=== PATIENT | female | born 1955 | race Caucasian/White ===

== ENCOUNTER 2020-08-19 09:45 | Outpatient (REF) | payer OTHER, SELFPAY ==
--- NOTE | 2020-08-19 10:26 | XR_ITS ---
EXAMINATION: XR HIP, LEFT XR PELVIS CLINICAL INFORMATION: Pain in left hip COMPARISON: CT imaging of the left hip from 09/27/2019. Radiographs of the hip from 07/02/2019, and pelvis from 08/08/2019 TECHNIQUE: Pelvis, AP view Left hip, 2 views FINDINGS: Pelvis: No acute abnormalities. The osseous pelvic ring remains intact. Alignment is normal at the pubic symphysis and sacroiliac joints. Chronic, mild osteoarthritis of the right hip and severe osteoarthritis of the left hip. Left hip: Chronic, severe loss of joint space, exuberant subchondral cystic change, subchondral sclerosis and osteophytosis. No evidence of femoral fracture. No new findings at the left hip compared to 09/27/2019. XR/XR hip LT min 2V IMPRESSION: Chronic, severe osteoarthritis of the left hip and mild osteoarthritis of the right hip.
--- NOTE | 2020-08-19 10:26 | XR_ITS ---
EXAMINATION: XR HIP, LEFT XR PELVIS CLINICAL INFORMATION: Pain in left hip COMPARISON: CT imaging of the left hip from 09/27/2019. Radiographs of the hip from 07/02/2019, and pelvis from 08/08/2019 TECHNIQUE: Pelvis, AP view Left hip, 2 views FINDINGS: Pelvis: No acute abnormalities. The osseous pelvic ring remains intact. Alignment is normal at the pubic symphysis and sacroiliac joints. Chronic, mild osteoarthritis of the right hip and severe osteoarthritis of the left hip. Left hip: Chronic, severe loss of joint space, exuberant subchondral cystic change, subchondral sclerosis and osteophytosis. No evidence of femoral fracture. No new findings at the left hip compared to 09/27/2019. XR/XR pelvis 1-2V IMPRESSION: Chronic, severe osteoarthritis of the left hip and mild osteoarthritis of the right hip.
== END 2020-08-19 09:46 | disposition home or self-care (01) ==
LOC: HO.HOSX 09:45
PROVIDERS: Visit Provider Physician Assistant
DX: M16.12 Unilateral primary osteoarthritis, left hip (principal)
CPT/HCPCS: 72170; 73502

== ENCOUNTER → 2020-09-15 11:57 | Outpatient (BNVA) | payer OTHER, SELFPAY | PROVIDERS: PCP Internal Medicine; Visit Provider Orthopaedic Surgery ==

== ENCOUNTER 2020-09-29 | Outpatient (REF) | payer OTHER, SELFPAY ==
[2020-10-03 07:38] LABS: FIT Int Ctl YES; FIT1 POSITIVE (NEGATIVE); FIT2 NEGATIVE (NEGATIVE)
== END 2020-09-29 00:01 | disposition home or self-care (01) ==
LOC: HO.LNP
PROVIDERS: Visit Provider Internal Medicine
DX: Z12.11 Encounter for screening for malignant neoplasm of colon (principal)
CPT/HCPCS: 82274

== ENCOUNTER 2020-10-02 10:36 | Outpatient (REF) | payer OTHER, SELFPAY ==
[2020-10-02 14:58] LABS: Basophils Absolute Auto 0.1 X10*3/uL (0.0-0.2); Basophils Percent Auto 0.6 % (0-2); MANUAL DIFF FLAG SCAN; SCAN SMEAR FLAG 1
[2020-10-02 15:00] LABS: Eosinophils Absolute Auto 0.2 X10*3/uL (0.0-0.4); Eosinophils Percent Auto 1.9 % (0-4); Hematocrit 43.1 % (37-47); Imm Gran Abs Auto 0.06 X10*3/uL (0.00-0.03); Imm Gran Pct Auto 0.7 % (0.0-0.4); Lymphocytes Absolute Auto 1.9 X10*3/uL (1.2-4.9); Mean Corpuscular HGB Conc 32.5 g/dl (31.0-35.0); Mean Corpuscular Volume 95.4 fL (80-98); Monocytes Absolute Auto 0.8 X10*3/uL (0.1-1.2); Monocytes Percent Auto 9.5 % (2-11); Neutrophils Absolute Auto 5.2 X10*3/uL (2.0-8.3); Neutrophils Percent Auto 64.3 % (45-73); Platelet Count 210 X10*3/uL (160-400); Red Blood Count 4.52 X10*6/uL (4.20-5.50); Red Cell Distribution Width 13.6 % (11.0-16.0); White Blood Count 8.1 X10*3/uL (4.8-10.8)
[2020-10-02 15:05] LABS: PLT ABN DIST 1
[2020-10-02 15:27] LABS: Alanine Aminotransferase 27 U/L (0-31); Albumin Level 4.6 g/dL (3.5-5.0); Alkaline Phosphatase 126 U/L (39-117); Anion Gap 14 (12-20); Aspartate Amino Transferase 33 U/L (5-31); Bilirubin Total 1.2 mg/dL (0.0-1.0); Blood Urea Nitrogen 32 mg/dL (9-16); Calcium 9.1 mg/dL (8.4-10.2); Carbon Dioxide 28 mmol/L (22-29); Chloride 104 mmol/L (96-108); Cholesterol 138 mg/dL; Estimated Glomerular Filt Rate > 60; Glucose Fasting 102 mg/dL (60-99); HDL Cholesterol 47 mg/dL; LDL Cholesterol Calculated 65 mg/dl; Potassium 4.3 mmol/L (3.3-5.1); Sodium 142 mmol/L (135-145); Triglycerides 130 mg/dL
[2020-10-02 15:50] LABS: Free T4 (Free Thyroxine) 1.31 ng/dL (0.71-1.85); Thyroid Stimulating Hormone 1.75 uIU/mL (0.32-4.0); Vitamin D 25-OH Total 3.4 ng/mL (>30)
== END 2020-10-02 10:37 | disposition home or self-care (01) ==
LOC: HO.HMGCLDS 10:36
PROVIDERS: PCP Internal Medicine; Visit Provider Internal Medicine
DX: Z01.812 Encounter for preprocedural laboratory examination (principal); E66.01 Morbid (severe) obesity due to excess calories; E78.5 Hyperlipidemia, unspecified; E03.9 Hypothyroidism, unspecified; Z78.0 Asymptomatic menopausal state
CPT/HCPCS: 36415; 80048; 80053; 80061; 82306; 84439; 84443; 85025

== ENCOUNTER 2020-10-02 14:54 | Outpatient (REF) | payer OTHER, SELFPAY | END 2020-10-02 14:55 | disposition home or self-care (01) | LOC: HO.LNP 14:54 | PROVIDERS: Visit Provider Internal Medicine | DX: Z13.89 Encounter for screening for other disorder (principal) ==

== ENCOUNTER → 2020-10-06 10:51 | Outpatient (REF) | payer OTHER, SELFPAY ==
--- NOTE | 2020-10-06 11:02 | ECG_ITS ---
Test Reason : PREOP Blood Pressure : / mmHG Vent. Rate : 068 BPM Atrial Rate : 068 BPM P-R Int : 166 ms QRS Dur : 098 ms QT Int : 420 ms P-R-T Axes : 062 024 047 degrees QTc Int : 446 ms Normal sinus rhythm Incomplete right bundle branch block Borderline ECG No previous ECGs available Referred By: Daryl Baum Electronically Signed By:JULES JACKSON MD
== END ==
LOC: HO.CARD 10:51
PROVIDERS: PCP Internal Medicine; Visit Provider Physician Assistant
DX: Z01.810 Encounter for preprocedural cardiovascular examination (principal)
CPT/HCPCS: 93005

== ENCOUNTER → 2020-10-08 13:50 | Outpatient (BNVA) | payer OTHER, SELFPAY | PROVIDERS: PCP Internal Medicine; Visit Provider Physician Assistant ==

== ENCOUNTER 2020-10-13 06:17 | Inpatient (IN) | payer OTHER, SELFPAY ==
[2020-10-09 12:07] VITALS: BP 129/80; PULSE 71; RESP 18; O2SAT 97; BMI 37.8
--- NOTE | 2020-10-09 12:24 | HO.ANESPROP2 ---
Documented by User: Faby Raphaelney 10/12/20 08:15 HPI - Anesthesia Eval Consult details Narrative: 65yo F for Left Hip Total Replacement PCP cleared [facility] Active Problems Active Problems: All Active Problems (Updated 10/09/20 @ 12:22 by Jennie Chi) Primary osteoarthritis of left hip (Acute) Positive FIT (fecal immunochemical test) (Acute) Vitamin D deficiency (Acute) Essential hypertension (Acute) Acquired hypothyroidism (Acute) Morbid obesity (Acute) Dyslipidemia (Acute) Past Medical History Medical History Acquired hypothyroidism Back pain Dyslipidemia Essential hypertension Morbid obesity Positive FIT (fecal immunochemical test) Vitamin D deficiency Family History Family History Father Multiple myeloma Lung cancer Mother Afib S/P CABG x 3 HTN (hypertension) CVD (cardiovascular disease) Diabetes mellitus Maternal Grandmother Diabetes mellitus Maternal Grandfather No problems noted. Paternal Grandmother Breast cancer Paternal Grandfather Stomach cancer Family history of problems with anesthesia: No Surgical History Surgical History H/O colonoscopy History of tonsillectomy History of wisdom tooth extraction Hx of laparoscopy History of Problems with Anesthesia: No Social History Social History Are you a primary healthcare science specialist to a significant other at home: No Do you presently have visiting nurse or other home services: No Smoking Status: Former smoker Tobacco Type: Cigarette Cigarettes Per Day: 30 Years Smoked: 35 Smoked in Last 30 Days: No Smoking Quit Date: 2017 Use of substances other than those prescribed or required for medical reasons: No Have you been hit, kicked, punched, or otherwise hurt by someone within the past year? If so, by whom?: No Advance Directives: No Advance Directives Information Provided: No Recently lost weight without trying: No Current occupational status: unemployed Current occupation: Right Handed Meds Allergies Allergy/AdvReac Type Severity Reaction Status Date / Time iodine [Iodine] Allergy Intermediate HIVES,SWELLING, Verified 10/09/20 12:32 sneezing, SOB penicillin G Allergy Intermediate shortness Verified 10/09/20 12:32 of breath Sulfa (Sulfonamide Allergy Intermediate itching/SOB Verified 10/09/20 12:32 Antibiotics) [SULFA (SULFONAMIDE ANTIBIOTICS)] codeine AdvReac Severe severe GI Verified 10/09/20 12:33 pain Home Medications Medication Instructions Recorded Confirmed Last Taken Type acetaminophen [Tylenol Extra 1,000 mg PO Q6H PRN 10/09/20 10/09/20 Unknown History Strength] atorvastatin 40 mg PO BEDTIME 10/09/20 10/09/20 Unknown History Exam Exam Date and Time: October 09, 2020 1224 Pertinent Lab Results Pertinent Lab Results: Laboratory Tests 10/02/20 10/02/20 10:45 10:45 WBC 8.1 Hgb 14.0 Hct 43.1 Plt Count 210 Sodium 142 Potassium 4.3 Chloride 104 Carbon Dioxide 28 BUN 32 H Creatinine 0.75 Laboratory Tests 10/09/20 13:45 Blood Type O Positive Antibody Screen NEGATIVE Narrative Narrative: EKG 09/2020 Vent. Rate : 068 BPM Atrial Rate : 068 BPM P-R Int : 166 ms QRS Dur : 098 ms QT Int : 420 ms P-R-T Axes : 062 024 047 degrees QTc Int : 446 ms Normal sinus rhythm Incomplete right bundle branch block Borderline ECG No previous ECGs available Airway Mallampati Class: III TM Dist: >3cm Neck ROM: Full Partial: Upper and Lower Heart: RRR Lungs: CTAB Assessment and Plan Assessment Anesthesia Assessment: Anesthesia Plan Discussed (Spinal vs GA, Block) and PAT Visit Documented by User: Rob Gordon MD 10/13/20 09:00 [facility] Past Medical History Medical History Acquired hypothyroidism Back pain Dyslipidemia Essential hypertension Morbid obesity Positive FIT (fecal immunochemical test) Vitamin D deficiency Family History Family History Father Multiple myeloma Lung cancer Mother Afib S/P CABG x 3 HTN (hypertension) CVD (cardiovascular disease) Diabetes mellitus Maternal Grandmother Diabetes mellitus Maternal Grandfather No problems noted. Paternal Grandmother Breast cancer Paternal Grandfather Stomach cancer Surgical History Surgical History H/O colonoscopy History of tonsillectomy History of wisdom tooth extraction Hx of laparoscopy Social History Social History Are you a primary healthcare science specialist to a significant other at home: No Do you presently have visiting nurse or other home services: No Smoking Status: Former smoker Tobacco Type: Cigarette Cigarettes Per Day: 30 Years Smoked: 35 Smoked in Last 30 Days: No Smoking Quit Date: 2017 Use of substances other than those prescribed or required for medical reasons: No Have you been hit, kicked, punched, or otherwise hurt by someone within the past year? If so, by whom?: No Advance Directives: No Advance Directives Information Provided: No Recently lost weight without trying: No Current occupational status: unemployed Current occupation: Right Handed Meds Allergies Allergy/AdvReac Type Severity Reaction Status Date / Time iodine [Iodine] Allergy Intermediate HIVES,SWELLING, Verified 10/09/20 12:32 sneezing, SOB penicillin G Allergy Intermediate shortness Verified 10/09/20 12:32 of breath Sulfa (Sulfonamide Allergy Intermediate itching/SOB Verified 10/09/20 12:32 Antibiotics) [SULFA (SULFONAMIDE ANTIBIOTICS)] codeine AdvReac Severe severe GI Verified 10/09/20 12:33 pain Home Medications Medication Instructions Recorded Confirmed Last Taken Type acetaminophen [Tylenol Extra 1,000 mg PO Q6H PRN 10/09/20 10/09/20 Unknown History Strength] atorvastatin 40 mg PO BEDTIME 10/09/20 10/09/20 Unknown History Assessment and Plan Assessment Anesthesia Assessment: Anesthesia Plan Discussed and Chart Reviewed Final Anesthetic Review NPO: Yes ASA Class: III Final Preanesthetic Review: No Changes in Pt Med Stat, Meds/Allgs Chart Reviewed, Consent Obtained/Reviewed and Anes Risks/Benef Reviewed Patient Risk: Intermediate Procedure Risk: Intermediate Anesthetic Plan Anesthetic Plan: GA Disposition: Standard PACU
[2020-10-09 14:35] LABS: MRSA Nasal PCR NEGATIVE (Negative); SA Nasal PCR POSITIVE (Negative)
[2020-10-13] VITALS (18 sets, daily range): BP systolic 87–131; BP diastolic 50–70; PULSE 61–88; RESP 14–20; TEMP 36.1–36.5; O2SAT 92–99
--- NOTE | ~2020-10-13 | XR_ITS ---
EXAMINATION: XR PELVIS CLINICAL INFORMATION: Postop COMPARISON: Previous x-niranjan July 2020 TECHNIQUE: AP view of the pelvis. FINDINGS: There is a new left hip replacement in satisfactory position. No fracture or dislocation is seen. There is arthritis of the right hip joint. There are postoperative changes to the soft tissues. XR/XR pelvis 1-2V IMPRESSION: Satisfactory appearance of left hip replacement.
[2020-10-13 06:57] LABS: COVID-19 Test Negative (Negative); IDNOW Serial# 9DD0AD1C
[2020-10-13] MEDS: Gabapentin 300 MG CAPSULE PO (07:16)
--- NOTE | 2020-10-13 07:30 | MHC.SHP ---
Pre-Procedural Eval Section A The patient is an INPATIENT: No Changes since office visit: Yes Patient answered all questions; No Cold of Flu in the past 2 weeks, No New Medical Problems and No Changes in Medication The History & Physical has been completed within 30 days and I have reviewed it.: No Section B Chief Complaint: Left total hip arthroplasty Allergies: Allergies Allergy/AdvReac Type Severity Reaction Status Date / Time iodine [Iodine] Allergy Intermediate HIVES,SWELLING, Verified 10/09/20 12:32 sneezing, SOB penicillin G Allergy Intermediate shortness Verified 10/09/20 12:32 of breath Sulfa (Sulfonamide Allergy Intermediate itching/SOB Verified 10/09/20 12:32 Antibiotics) [SULFA (SULFONAMIDE ANTIBIOTICS)] codeine AdvReac Severe severe GI Verified 10/09/20 12:33 pain Plan I have reviewed the history and physical and performed a pertinent physical examination on my patient. No changes have occurred unless specified.
[2020-10-13] MEDS: Lactated Ringers 1,000 ML 50 ML IV (07:31)
--- NOTE | 2020-10-13 08:40 | PC.NURSE ---
right hip wnl. no open area or scabs noted. pt does have bandaids bilat great toes. reports nothing underneath. wears them so she does not get blisters. informed when at bedside. Surgery to continue.
--- NOTE | 2020-10-13 11:31 | PM.OP ---
Brief Operative Note Date of Service: 10/13/20 Pre-op diagnosis: left hip OA Post-op diagnosis: same Procedure: Left AMANDA Implants: [place] trident revision 54 cup with 10 deg liner and 2 40 mm acetabular screws. #5 Accolade 2 with +2.5 36 ceramic cup Surgeon: Silver Davey MD Anesthesia: GETA and local Program Medical Director: Daryl Baum Estimated blood loss (mL): 400 Tourniquet time (min): 0 IV fluids (mL): 1,200 Urine output (mL): 0 Pathology: other Condition: stable Disposition: PACU
[2020-10-13] MEDS: HYDROmorphone HCl 0.5 MG/0.5 ML SYRINGE 0.25 MG IVPUSH ×2 (11:40→11:50)
[2020-10-13] MEDS: oxyCODONE HCl Immed Release 5 MG TABLET PO (12:48)
[2020-10-13] MEDS: Dextrose 5 % and 0.45 % NaCl 1,000 ML 80 ML IVCONT (16:35)
[2020-10-13] MEDS: 0.9 % Sodium Chloride Flush 3 ML SYRINGE IVFLUSH (16:36)
--- NOTE | 2020-10-13 17:54 | PM.IMCN ---
History of Present Illness Data of Consult Service Date: 10/13/20 Primary Care Provider: Vanda Landeros MD HPI A 65 years old lady with PMH of HTN, HLD and hypothyroidism admitted for elective hip replacement surgery for osteoarthritis. Hospitalist team asked to evaluate her for medical conditions. Patient seems to be stable with no acute complaints other than pain at the site of surgery. Review of Systems Review of Systems: No fever, chills or weakness No chest pain, palpitation No shortness of breath or coughing No abdominal pain, nausea or vomiting No urinary symptoms No any rash Site of surgery pain PMFSH Medical History Acquired hypothyroidism Back pain Dyslipidemia Essential hypertension Morbid obesity Positive FIT (fecal immunochemical test) Vitamin D deficiency Family History Father Multiple myeloma Lung cancer Mother Afib S/P CABG x 3 HTN (hypertension) CVD (cardiovascular disease) Diabetes mellitus Maternal Grandmother Diabetes mellitus Maternal Grandfather No problems noted. Paternal Grandmother Breast cancer Paternal Grandfather Stomach cancer Surgical History H/O colonoscopy History of tonsillectomy History of wisdom tooth extraction Hx of laparoscopy Social History Household Members: Spouse Housing: House Are you a primary dialysis patient care technician to a significant other at home: No Do you presently have visiting nurse or other home services: No Smoking Status: Former smoker Tobacco Type: Cigarette Cigarettes Per Day: 30 Years Smoked: 35 Smoked in Last 30 Days: No Smoking Quit Date: october 2017 Use of substances other than those prescribed or required for medical reasons: No Have you been hit, kicked, punched, or otherwise hurt by someone within the past year? If so, by whom?: No Do you feel safe in your current relationship?: Yes Is there a partner from a previous relationship who is making you feel unsafe now?: No Are you made to feel afraid or neglected: No Advance Directives: No Advance Directives Information Provided: No Advance Directives on File: No Do you have thoughts of harming others: None Do you have a plan to hurt others: No Plan Recently lost weight without trying: No Current occupational status: unemployed Current occupation: Right Handed Meds Allergies Allergy/AdvReac Type Severity Reaction Status Date / Time iodine [Iodine] Allergy Intermediate HIVES,SWELLING, Verified 10/09/20 12:32 sneezing, SOB penicillin G Allergy Intermediate shortness Verified 10/09/20 12:32 of breath Sulfa (Sulfonamide Allergy Intermediate itching/SOB Verified 10/09/20 12:32 Antibiotics) [SULFA (SULFONAMIDE ANTIBIOTICS)] codeine AdvReac Severe severe GI Verified 10/09/20 12:33 pain Active Medications: Current Medications Generic Name Dose Route Start Last Admin Trade Name Freq PRN Reason Stop Dose Admin Acetaminophen 650 mg 10/13/20 11:36 Acetaminophen 325 Mg Tablet PO Q6H PRN Pain, Mild (Pain Scale 1-3) Atorvastatin Calcium 40 mg 10/13/20 21:00 Atorvastatin Calcium 40 Mg Tablet PO BEDTIME ELKE Celecoxib 200 mg 10/13/20 21:00 Celecoxib 200 Mg Capsule PO BID ELKE Docusate Sodium 100 mg 10/13/20 21:00 Docusate Sodium 100 Mg Capsule PO BID ELKE Hydromorphone HCl 0.25 mg 10/13/20 11:36 Hydromorphone Hcl 0.5 Mg/0.5 Ml Syringe IVPUSH Q4H PRN Pain, Severe (Pain Scale 7-10) Dextrose/Sodium Chloride 1,000 mls @ 80 mls/hr 10/13/20 11:45 10/13/20 16:35 D51/2ns IVCONT 80 mls/hr .[id number] ELKE Administration Vancomycin HCl 1,000 mg/ 270 mls @ 270 mls/hr 10/13/20 19:00 Sodium Chloride IV 10/13/20 19:59 POSTOP ONE Levothyroxine Sodium 100 mcg 10/14/20 06:00 Levothyroxine Sodium 100 Mcg Tablet PO DAILY@0600 ELKE Naloxone HCl 0.2 mg 10/13/20 11:36 Naloxone Hcl 0.4 Mg/Ml Vial IVPUSH Q2M PRN Excessive sedation or RR < 8 Ondansetron HCl 4 mg 10/13/20 11:36 Ondansetron Hcl 4 Mg/2 Ml Vial IVPUSH Q8H PRN Nausea and Vomiting Oxycodone HCl 10 mg 10/13/20 11:36 Oxycodone Hcl Immed Release 5 Mg Tablet PO Q4H PRN Pain, Moderate (Pain Scale 4-6 Oxycodone HCl 10 mg 10/13/20 21:00 Oxycodone Hcl Er 10 Mg Tab.Er.12h PO BID ELKE Sodium Chloride 3 ml 10/13/20 16:00 10/13/20 16:36 0.9 % Sodium Chloride Flush 3 Ml Syringe IVFLUSH 3 ml QSHIFT COUNTS INCLUDE 234 BEDS AT THE [facility] Administration Home Medications Medication Instructions Recorded Confirmed Last Taken Type acetaminophen [Tylenol Extra 1,000 mg PO Q6H PRN 10/09/20 10/09/20 Unknown History Strength] atorvastatin 40 mg PO BEDTIME 10/09/20 10/09/20 Unknown History Physical Exam Vital Signs and Narrative: Vital Signs: Last Vital Signs Temp 97.1 F 10/13/20 15:40 Pulse 81 10/13/20 15:40 Resp 14 10/13/20 15:40 BP 103/62 10/13/20 15:40 Pulse Ox 96 10/13/20 15:40 Body Mass Index 37.8 Const: Other: Constitutional : Alert, oriented, not in distress Neck : Normal inspection, Supple Cardiovascular : RRR, S1 S2, no lower extremity edema Respiratory : Good bilateral air entry, no crackles, wheezes or rhonchi Gastrointestinal: soft, lax, Normal bowel sounds, Non tender Skin : Warm/Dry, No rash Neurological : Alert & oriented x3, No focal deficit Results Labs Labs: Laboratory Results - last 24 hr 10/13/20 06:25 COVID-19 (PAWEL) Negative COVID-19 Clin Com See Note Imaging Radiologist's Impressions: Impressions Pelvis X-Ray 10/13/20 08:32 IMPRESSION: Satisfactory appearance of left hip replacement. Assessment and Plan (1) Primary osteoarthritis of left hip: Status: Acute (2) Essential hypertension: Status: Acute (3) Acquired hypothyroidism: Status: Acute (4) Dyslipidemia: Status: Acute (5) Morbid obesity: Status: Acute A 65 years old lady with PMH of HTN, HLD and hypothyroidism admitted for elective hip replacement surgery for osteoarthritis. Left hip arthroplasty Management per orthopedic team Hypertension Hold for now, to decide tomorrow morning HLD Continue atorvastatin Morbid obesity Advised to lose weight has obesity contributing to her all over condition Thank you for the consult, will monitor the patient with you
[2020-10-13] MEDS: oxyCODONE HCl Immed Release 5 MG TABLET 10 MG PO ×2 (17:55→22:06)
[2020-10-13] MEDS: vancomycin HCL 1,000 MG in 0.9 % Sodium Chloride 250 ML 270 MG IV (20:50)
[2020-10-13] MEDS: Atorvastatin Calcium 40 MG TABLET PO (20:50)
[2020-10-13] MEDS: Docusate Sodium 100 MG CAPSULE PO (20:50)
[2020-10-13] MEDS: oxyCODONE HCl ER 10 MG TAB.ER.12H PO (20:50)
[2020-10-13] MEDS: Celecoxib 200 MG CAPSULE PO (20:51)
[2020-10-14] VITALS (10 sets, daily range): BP systolic 80–111; BP diastolic 44–55; PULSE 74–94; RESP 16–20; TEMP 36.2–37.9; O2SAT 93–100; BMI 37.8
[2020-10-14] MEDS: oxyCODONE HCl Immed Release 5 MG TABLET 10 MG PO ×2 (03:23→09:18)
[2020-10-14] MEDS: Dextrose 5 % and 0.45 % NaCl 1,000 ML 80 ML IVCONT ×2 (03:25→14:15)
[2020-10-14 06:24] LABS: MANUAL DIFF FLAG NO
[2020-10-14 06:55] LABS: Basophils Percent Auto 0.2 % (0-2); Eosinophils Percent Auto 0.3 % (0-4); Hematocrit 29.4 % (37-47); Hemoglobin 9.6 g/dl (12.0-16.0); Imm Gran Abs Auto 0.06 X10*3/uL (0.00-0.03); Imm Gran Pct Auto 0.6 % (0.0-0.4); Lymphocytes Absolute Auto 1.3 X10*3/uL (1.2-4.9); Mean Corpuscular HGB Conc 32.7 g/dl (31.0-35.0); Mean Corpuscular Hemoglobin 31.6 pg (27.0-33.0); Mean Corpuscular Volume 96.7 fL (80-98); Mean Platelet Volume 12.4 fL (9.4-12.3); Monocytes Absolute Auto 1.2 X10*3/uL (0.1-1.2); Monocytes Percent Auto 10.7 % (2-11); Neutrophils Absolute Auto 8.2 X10*3/uL (2.0-8.3); Neutrophils Percent Auto 76.2 % (45-73); Platelet Count 153 X10*3/uL (160-400); Red Blood Count 3.04 X10*6/uL (4.20-5.50); Red Cell Distribution Width 13.8 % (11.0-16.0); White Blood Count 10.7 X10*3/uL (4.8-10.8)
[2020-10-14 06:58] LABS: Anion Gap 14 (12-20); Blood Urea Nitrogen 19 mg/dL (9-16); Calcium 7.9 mg/dL (8.4-10.2); Carbon Dioxide 26 mmol/L (22-29); Chloride 103 mmol/L (96-108); Creatinine Clr Calc Pharmacy 78.7; Estimated Glomerular Filt Rate > 60; Glucose Fasting 132 mg/dL (60-99); Potassium 4.1 mmol/L (3.3-5.1); Sodium 139 mmol/L (135-145)
[2020-10-14] MEDS: Levothyroxine Sodium 100 MCG TABLET PO (07:18)
--- NOTE | 2020-10-14 07:47 | PM.PNORT ---
Subjective Subjective Date of Service: 10/14/20 Interval history: POD 2 1 s/p LT AMANDA No overnight events, has not been out of bed yet, using bed pena, has some mild discomfort with movement Denies cp/sob/dizziness Physical Exam Vital Signs: Vital Signs: Last Vital Signs Temp 98.8 F 10/14/20 03:01 Pulse 84 10/14/20 03:01 Resp 18 10/14/20 03:01 BP 101/51 L 10/14/20 03:01 Pulse Ox 93 10/14/20 03:01 Body Mass Index 37.8 Const: General: cooperative, healthy appearing and no acute distress Resp: Effort & Inspection: normal respiratory effort and able to speak in complete sentences Cardio: Rate: regular rate Peripheral pulses: Peripheral pulses 2+ throughout GI: Palpation (GI): Soft to palpation Skin: General skin exam: no rashes or lesions noted Extrem: Other: Left hip bandage c/d/i. No erythema, mild edema, sensation intact Progress Note: A&P Assessment and plan (1) History of total left hip arthroplasty: Status: Acute Assessment and Plan: Continue pain mgmnt Begin asa for dvt ppx begin PT /OT for LT AMANDA post. precautions Dispo planning-Pending PT eval, pain mgmnt Fall Risk Details Current Medications: Current Medications Generic Name Dose Route Start Last Admin Trade Name Freq PRN Reason Stop Dose Admin Acetaminophen 650 mg 10/13/20 11:36 Acetaminophen 325 Mg Tablet PO Q6H PRN Pain, Mild (Pain Scale 1-3) Aspirin 325 mg 10/14/20 10:00 Aspirin 325 Mg Tablet PO BID ELKE Atorvastatin Calcium 40 mg 10/13/20 21:00 10/13/20 20:50 Atorvastatin Calcium 40 Mg Tablet PO 40 mg BEDTIME ELKE Administration Celecoxib 200 mg 10/13/20 21:00 10/13/20 20:51 Celecoxib 200 Mg Capsule PO 200 mg BID ELKE Administration Docusate Sodium 100 mg 10/13/20 21:00 10/13/20 20:50 Docusate Sodium 100 Mg Capsule PO 100 mg BID ELKE Administration Hydromorphone HCl 0.25 mg 10/13/20 11:36 Hydromorphone Hcl 0.5 Mg/0.5 Ml Syringe IVPUSH Q4H PRN Pain, Severe (Pain Scale 7-10) Dextrose/Sodium Chloride 1,000 mls @ 80 mls/hr 10/13/20 11:45 10/14/20 03:25 D51/2ns IVCONT 80 mls/hr .[id number] ELKE Administration Levothyroxine Sodium 100 mcg 10/14/20 06:00 10/14/20 07:18 Levothyroxine Sodium 100 Mcg Tablet PO 100 mcg DAILY@0600 ELKE Administration Naloxone HCl 0.2 mg 10/13/20 11:36 Naloxone Hcl 0.4 Mg/Ml Vial IVPUSH Q2M PRN Excessive sedation or RR < 8 Ondansetron HCl 4 mg 10/13/20 11:36 Ondansetron Hcl 4 Mg/2 Ml Vial IVPUSH Q8H PRN Nausea and Vomiting Oxycodone HCl 10 mg 10/13/20 11:36 10/14/20 03:23 Oxycodone Hcl Immed Release 5 Mg Tablet PO 10 mg Q4H PRN Administration Pain, Moderate (Pain Scale 4-6 Oxycodone HCl 10 mg 10/13/20 21:00 10/13/20 20:50 Oxycodone Hcl Er 10 Mg Tab.Er.12h PO 10 mg BID ELKE Administration Sodium Chloride 3 ml 10/13/20 16:00 10/13/20 23:46 0.9 % Sodium Chloride Flush 3 Ml Syringe IVFLUSH Not Given QSHIFT ELKE Time Spent With Patient Time: Total time spent is greater than 50% in coordination of care (as documented) at patient's floor/unit and/or counseling patient: Time with patient: less than 15 minutes
[2020-10-14] MEDS: 0.9 % Sodium Chloride 1,000 ML 999 ML IV (09:17)
[2020-10-14] MEDS: Docusate Sodium 100 MG CAPSULE PO ×2 (09:18→20:21)
[2020-10-14] MEDS: Celecoxib 200 MG CAPSULE PO ×2 (09:18→20:21)
[2020-10-14] MEDS: Aspirin 325 MG TABLET PO ×2 (09:18→20:21)
--- NOTE | 2020-10-14 09:26 | W.PM.OPN ---
Operative Note Operative Note Date of Service: 10/13/20 Narrative: Brief Operative Note Date of Service: 10/13/20 Pre-op diagnosis: left hip OA Post-op diagnosis: same Procedure: Left AMANDA Implants: [place] trident revision 54 cup with 10 deg liner and 2 40 mm acetabular screws. #5 Accolade 2 with +2.5 36 ceramic cup Surgeon: Silver Davey MD Anesthesia: GETA and local Data Examination Clerk: Daryl Baum Estimated blood loss (mL): 400 Tourniquet time (min): 0 IV fluids (mL): 1,200 Urine output (mL): 0 Pathology: other Condition: stable Disposition: PACU Procedure in detail: Patient was brought into the operating room and placed in a right lateral decubitus position. All bony prominences were well padded and the limb was prepped and draped in standard sterile fashion. Time-out was called to identify proper site procedure proper surgeon IV antibiotics and 1 g of trans to make acid were administered. I began by making a curvilinear incision over the posterolateral aspect of the greater trochanter. Dissection was taken down to the tensor fascia which was incised in line with the incision and a Charnley retractor was placed. Hip was internally rotated and the external rotators were identified. The vessels were cauterized and a full-thickness capsular/external rotator layer was developed starting just proximal to the piriformis. There was extensive ossification of the acetabulum and so a osteotome was used to remove the acetabular bone. A dull Hohmann retractor was placed underneath the neck in the hip was dislocated. A neck cut was made 1 cm proximal to the lesser trochanter and the head and neck were removed and measured on the back table. There was exuberant acetabular bone that was removed circumferentially. Fragments of bone in the anterior-inferio direction were removed as much as possible but the area was not dissected given the proximity of the neurovascular bundle. I placed anterior-posterior acetabular retractors and performed a labrectomy and sequentially reamed up to a size _51__ and impacted a _52 trident 2 and implanted a 20 deg posterior lipped liner. The cup was placed at 45 degrees of inclination and 25 degrees of ante-version. I then turned my attention to the femur. I used cautery to identify the piriformis start site and used this as a starting point for my marlo cutter. I then used a Charnley awl to identify the canal and a curved curette to remove the lateral bone. I then sequentially broached in the patient's natural version to a size __5__and placed trial implants. I took the hip through range of motion with a +0 head and I the cup dislocated. I therefore removed the trial femur and performed a rim reaming of a 53 and placed a revision 54 cup and 2 superior acetabular screws using standard AO technique. I was very happy with the stability and then returned to the femur. I found the .25 132 deg #5 femur the most stable. It was difficult to reduce and I was thus not able to lengthen her any more. I placed my final femur and re-trialed. Therefore removed all instrumentation copiously irrigated placed my final femoral implant. I was satisfied with the stability. Final implants were placed. I then irrigated for 3 minutes with iodine and placed 1 g of local TXA. I then performed a capsular closure with FiberWire, Sonja's fascia with 0 Vicryl, subcuticular with 2-0 vicryl and skin with ami. Patient was placed into a sterile dressing. Radiographs were obtained at the completion of the case and I was happy with the component position. Patient was extubated brought to the recovery room in stable condition.
--- NOTE | 2020-10-14 12:20 | HO.POSTANES ---
Post Anesthesia Evaluation Post Anesthesia Evaluation Vital Signs: Vital Signs Temp Pulse Resp BP Pulse Ox 10/14/20 10:38 93/54 L 10/14/20 08:43 84 93 10/14/20 08:00 100.3 F 94 16 83/54 L 93 10/14/20 03:01 98.8 F 84 18 101/51 L 93 Anesthesia: General Mental Status: Awake Pain Control: Satisfactory Nausea/Vomiting: None Hydration: Adequate Anesthesia-Related Issues: No Anes. Related Issues
--- NOTE | 2020-10-14 14:00 | P.PNIM_ITS ---
Subjective Subjective Date of Service: 10/14/20 Review of Systems the patient was seen and evaluated this morning Laying in bed, feels comfortable Has pain at the surgical site, blood pressure noted to be solved the associated with mild lightheadedness Denies any fever, chills or shortness of breath No reported other overnight events. Systemic review: No fever, chills but but has pain at surgery site No chest pain, palpitation No shortness of breath or coughing No abdominal pain, nausea or vomiting No urinary symptoms No any rash or wounds Physical Exam Vital Signs: Vital Signs: Last Vital Signs Temp 98 F 10/14/20 12:00 Pulse 87 10/14/20 13:36 Resp 18 10/14/20 12:00 BP 80/49 L 10/14/20 12:00 Pulse Ox 95 10/14/20 13:36 Body Mass Index 37.8 Const: Other: Constitutional : Alert, oriented, not in distress Neck : Normal inspection, Supple Cardiovascular : RRR, S1 S2, no lower extremity edema Respiratory : Good bilateral air entry, no crackles, wheezes or rhonchi Gastrointestinal: soft, lax, Normal bowel sounds, Non tender Skin : Warm/Dry, No rash Neurological : Alert & oriented x3, No focal deficit Objective Data Current Medications Generic Name Dose Route Start Last Admin Trade Name Freq PRN Reason Stop Dose Admin Acetaminophen 650 mg 10/13/20 11:36 Acetaminophen 325 Mg Tablet PO Q6H PRN Pain, Mild (Pain Scale 1-3) Aspirin 325 mg 10/14/20 10:00 10/14/20 09:18 Aspirin 325 Mg Tablet PO 325 mg BID ELKE Administration Atorvastatin Calcium 40 mg 10/13/20 21:00 10/13/20 20:50 Atorvastatin Calcium 40 Mg Tablet PO 40 mg BEDTIME ELKE Administration Celecoxib 200 mg 10/13/20 21:00 10/14/20 09:18 Celecoxib 200 Mg Capsule PO 200 mg BID ELKE Administration Docusate Sodium 100 mg 10/13/20 21:00 10/14/20 09:18 Docusate Sodium 100 Mg Capsule PO 100 mg BID ELKE Administration Hydromorphone HCl 0.25 mg 10/13/20 11:36 Hydromorphone Hcl 0.5 Mg/0.5 Ml Syringe IVPUSH Q4H PRN Pain, Severe (Pain Scale 7-10) Dextrose/Sodium Chloride 1,000 mls @ 80 mls/hr 10/13/20 11:45 10/14/20 03:25 D51/2ns IVCONT 80 mls/hr .[id number] ELKE Administration Levothyroxine Sodium 100 mcg 10/14/20 06:00 10/14/20 07:18 Levothyroxine Sodium 100 Mcg Tablet PO 100 mcg DAILY@0600 ELKE Administration Naloxone HCl 0.2 mg 10/13/20 11:36 Naloxone Hcl 0.4 Mg/Ml Vial IVPUSH Q2M PRN Excessive sedation or RR < 8 Ondansetron HCl 4 mg 10/13/20 11:36 Ondansetron Hcl 4 Mg/2 Ml Vial IVPUSH Q8H PRN Nausea and Vomiting Oxycodone HCl 10 mg 10/13/20 11:36 10/14/20 09:18 Oxycodone Hcl Immed Release 5 Mg Tablet PO 10 mg Q4H PRN Administration Pain, Moderate (Pain Scale 4-6 Oxycodone HCl 10 mg 10/13/20 21:00 10/14/20 09:19 Oxycodone Hcl Er 10 Mg Tab.Er.12h PO Not Given BID ELKE Sodium Chloride 3 ml 10/13/20 16:00 10/14/20 08:14 0.9 % Sodium Chloride Flush 3 Ml Syringe IVFLUSH Not Given QSHIFT REPLACED BY [facility] Labs CBC & Chem 7: 10/14/20 06:13 10/14/20 06:13 Assessment and Plan (1) Primary osteoarthritis of left hip: Status: Acute (2) Essential hypertension: Status: Acute (3) Acquired hypothyroidism: Status: Acute (4) Dyslipidemia: Status: Acute (5) Morbid obesity: Status: Acute Assessment and Plan: A 65 years old lady with PMH of HTN, HLD and hypothyroidism admitted for elect jose juan hip replacement surgery for osteoarthritis. Hypotension Symptomatic with lightheadedness To give a bolus of fluid Hold lisinopril Encourage activity and continue to monitor Acute anemia Hemoglobin dropped to 9.6 from 14.2 weeks prior to surgery No active bleeding noticed, site of surgery seems clean Likely delutional and related to blood loss Continue to monitor H&H No need for transfusion at this point Left hip arthroplasty Management per orthopedic team Hypertension Hold for now, to decide tomorrow morning HLD Continue atorvastatin Morbid obesity Advised to lose weight has obesity contributing to her all over condition Thank you for the consult, will monitor the patient with you
--- NOTE | 2020-10-14 14:17 | MHC.CM.PN ---
NURSE MANAGER MORTGAGE NOTE ELECTRONIC MEDICAL RECORD REVIEWED ALONG WITH CASE DISCUSSED WITH STAFF NURSE. MET WITH PATIENT SHE REPORTED SHE LIVES WITH HER IN A HOME IN [place], SHE IS CURRENTLY OUT OF WORK ON A MEDICAL DISABILITY LEAVE AND IS PAYING FOR HER CoBRA INSURANCE WITH [facility]. SHE IS INDEPENDENT HER ADLS AND MOBILITY, SHE WAS ADMITTED ON 10/13/20 FOR EJECTIVE L-AMANDA COLE IS S/P POST OPERATIVE DAY #1 she reported to me she has no vna , no dme services in the home in the past she had physical therapy at home through the [facility] with Georgina and would like the [facility] again and with therapist Georgina if possible. educated about the importance of having a health care proxy and patient will talk with her and willing to complete one tomorrow. discharge plan home with ,new referral of with the [facility] visiting nurse for home physical therapy pcp confirmed dr citlali bland patient to call for post hospital discharge follow up orthopedic surgeon - per discharge instructions transportation family case resolution specialist to follow up regarding completion of health care proxy
--- NOTE | 2020-10-14 15:22 | PC.NURSE ---
P Hypotension. BP 83/54. I: Assess for symptoms. Notify MD E: Patient feels weak and tired. No dizziness. 1Liter IV bolus given per MD order. BP 93/54 after bolus. Patient states she feels much better this afternoon. Ambulated with PT. Voided dark yellow urine. BP rechecked this afternoon 83/45. Dr. Berger notified. Will give IV bolus if symptomatic. Pushing PO fluids. Will continue to monitor.
[2020-10-14] MEDS: oxyCODONE HCl ER 10 MG TAB.ER.12H PO (20:21)
[2020-10-14] MEDS: Atorvastatin Calcium 40 MG TABLET PO (20:21)
[2020-10-15] VITALS (15 sets, daily range): BP systolic 93–126; BP diastolic 44–60; PULSE 72–88; RESP 16–20; TEMP 36.2–37; O2SAT 83–98
[2020-10-15] MEDS: Dextrose 5 % and 0.45 % NaCl 1,000 ML 80 ML IVCONT (02:25)
[2020-10-15 06:11] LABS: MANUAL DIFF FLAG NO
[2020-10-15] MEDS: Levothyroxine Sodium 100 MCG TABLET PO (06:23)
[2020-10-15 06:33] LABS: Anion Gap 14 (12-20); Blood Urea Nitrogen 20 mg/dL (9-16); Calcium 8.2 mg/dL (8.4-10.2); Carbon Dioxide 24 mmol/L (22-29); Chloride 103 mmol/L (96-108); Estimated Glomerular Filt Rate > 60; Glucose Fasting 136 mg/dL (60-99); Potassium 3.8 mmol/L (3.3-5.1); Sodium 137 mmol/L (135-145)
[2020-10-15 06:37] LABS: Basophils Percent Auto 0.2 % (0-2); Eosinophils Absolute Auto 0.2 X10*3/uL (0.0-0.4); Eosinophils Percent Auto 1.4 % (0-4); Hematocrit 25.1 % (37-47); Hemoglobin 8.3 g/dl (12.0-16.0); Imm Gran Abs Auto 0.14 X10*3/uL (0.00-0.03); Imm Gran Pct Auto 1.1 % (0.0-0.4); Lymphocytes Absolute Auto 1.5 X10*3/uL (1.2-4.9); Lymphocytes Percent Auto 12.2 % (20-40); Mean Corpuscular HGB Conc 33.1 g/dl (31.0-35.0); Mean Corpuscular Hemoglobin 31.9 pg (27.0-33.0); Mean Corpuscular Volume 96.5 fL (80-98); Mean Platelet Volume 12.9 fL (9.4-12.3); Monocytes Absolute Auto 0.9 X10*3/uL (0.1-1.2); Monocytes Percent Auto 7.5 % (2-11); Neutrophils Absolute Auto 9.7 X10*3/uL (2.0-8.3); Neutrophils Percent Auto 77.6 % (45-73); Platelet Count 130 X10*3/uL (160-400); Red Cell Distribution Width 13.5 % (11.0-16.0); White Blood Count 12.5 X10*3/uL (4.8-10.8)
--- NOTE | 2020-10-15 08:43 | P.PNOP_ITS ---
Subjective Subjective Date of Service: 10/15/20 Interval history: POD 2 s/p LT AMANDA No overnight events, resting in recliner, doing well with walking with walker, no concerns. Physical Exam Vital Signs: Vital Signs: Last Vital Signs Temp 97.4 F 10/15/20 07:39 Pulse 86 10/15/20 08:10 Resp 17 10/15/20 07:39 BP 100/46 L 10/15/20 08:10 Pulse Ox 98 10/15/20 08:10 Body Mass Index 37.8 Const: General: cooperative, healthy appearing and no acute distress Resp: Effort & Inspection: normal respiratory effort and able to speak in complete sentences Cardio: Rate: regular rate Peripheral pulses: Peripheral pulses 2+ throughout GI: Palpation (GI): Soft to palpation Skin: General skin exam: no rashes or lesions noted Extrem: Other: Left hip bandage c/d/i. No erythema, mild edema, sensation intact Progress Note: A&P Assessment and plan (1) History of total left hip arthroplasty: Status: Acute Assessment and Plan: Continue pain mgmnt contnue asa for dvt ppx continue PT/OT for LT AMANDA post precautions 2 units PRBCs transfused today monitor h/h Dispo planning-Pending PT, h/h, pain mgmnt Fall Risk Details Current Medications: Current Medications Generic Name Dose Route Start Last Admin Trade Name Freq PRN Reason Stop Dose Admin Acetaminophen 650 mg 10/13/20 11:36 Acetaminophen 325 Mg Tablet PO Q6H PRN Pain, Mild (Pain Scale 1-3) Aspirin 325 mg 10/14/20 10:00 10/14/20 20:21 Aspirin 325 Mg Tablet PO 325 mg BID ELKE Administration Atorvastatin Calcium 40 mg 10/13/20 21:00 10/14/20 20:21 Atorvastatin Calcium 40 Mg Tablet PO 40 mg BEDTIME ELKE Administration Celecoxib 200 mg 10/13/20 21:00 10/14/20 20:21 Celecoxib 200 Mg Capsule PO 200 mg BID ELKE Administration Docusate Sodium 100 mg 10/13/20 21:00 10/14/20 20:21 Docusate Sodium 100 Mg Capsule PO 100 mg BID ELKE Administration Hydromorphone HCl 0.25 mg 10/13/20 11:36 Hydromorphone Hcl 0.5 Mg/0.5 Ml Syringe IVPUSH Q4H PRN Pain, Severe (Pain Scale 7-10) Levothyroxine Sodium 100 mcg 10/14/20 06:00 10/15/20 06:23 Levothyroxine Sodium 100 Mcg Tablet PO 100 mcg DAILY@0600 ELKE Administration Naloxone HCl 0.2 mg 10/13/20 11:36 Naloxone Hcl 0.4 Mg/Ml Vial IVPUSH Q2M PRN Excessive sedation or RR < 8 Ondansetron HCl 4 mg 10/13/20 11:36 Ondansetron Hcl 4 Mg/2 Ml Vial IVPUSH Q8H PRN Nausea and Vomiting Oxycodone HCl 10 mg 10/13/20 11:36 10/14/20 09:18 Oxycodone Hcl Immed Release 5 Mg Tablet PO 10 mg Q4H PRN Administration Pain, Moderate (Pain Scale 4-6 Oxycodone HCl 10 mg 10/13/20 21:00 10/14/20 20:21 Oxycodone Hcl Er 10 Mg Tab.Er.12h PO 10 mg BID ELKE Administration Sodium Chloride 3 ml 10/13/20 16:00 10/15/20 00:58 0.9 % Sodium Chloride Flush 3 Ml Syringe IVFLUSH Not Given QSHIFT [facility] Time Spent With Patient Time: Total time spent is greater than 50% in coordination of care (as documented) at patient's floor/unit and/or counseling patient: Time with patient: less than 15 minutes
[2020-10-15] MEDS: Celecoxib 200 MG CAPSULE PO ×2 (09:01→21:55)
[2020-10-15] MEDS: Aspirin 325 MG TABLET PO ×2 (09:01→21:55)
[2020-10-15] MEDS: Docusate Sodium 100 MG CAPSULE PO ×2 (09:01→21:55)
[2020-10-15] MEDS: oxyCODONE HCl ER 10 MG TAB.ER.12H PO ×2 (09:08→21:56)
--- NOTE | 2020-10-15 11:10 | MHC.CM.PN ---
nurse health care facility administrator note electronic medical record reviewed along with case discussed with staff nurse and hospitalist , met with patient she already has been up walking with walker to bathroom with staff and has had physical therapy a today, she reported that she is felling less pain than yesterday , but feels very tired and weak. she is pos operative day #2 left total hip arthroplasty per documentation plan of care pain assessment and effectiveness of analgesics, monitoring of blood pressure(as patient has had post operative lightheadness, low blood pressure s/p bolus of normal saline, holding her lisinopril, anemia monitoring her hemoglobin/hematocrit. discharge plan home tomorrow 10/16/20 with [facility] for home physical therapy pcp dr citlali bland patient to follow up for post hospital discharge follow up orthopedic surgeon -follow up per discharge instructions transportation -family member
--- NOTE | 2020-10-15 13:51 | HO.PM.IMPN ---
Subjective Subjective Date of Service: 10/15/20 Review of Systems the patient was seen and evaluated this morning Laying in bed, feels comfortable but more tired and down Has pain at the surgical site, improved blood pressure but still on the lower side Hemoglobin dropped further more this morning Denies any fever, chills or shortness of breath No reported other overnight events. Systemic review: No fever, chills but but has pain at surgery site No chest pain, palpitation No shortness of breath or coughing No abdominal pain, nausea or vomiting No urinary symptoms No any rash or wounds Physical Exam Vital Signs: Vital Signs: Last Vital Signs Temp 97.2 F 10/15/20 12:00 Pulse 80 10/15/20 13:42 Resp 16 10/15/20 12:00 BP 114/44 L 10/15/20 13:42 Pulse Ox 95 10/15/20 13:42 Body Mass Index 37.8 Const: Other: Constitutional : Alert, oriented, not in distress Neck : Normal inspection, Supple Cardiovascular : RRR, S1 S2, no lower extremity edema Respiratory : Good bilateral air entry, no crackles, wheezes or rhonchi Gastrointestinal: soft, lax, Normal bowel sounds, Non tender Skin : Warm/Dry, No rash Neurological : Alert & oriented x3, No focal deficit Objective Data Current Medications Generic Name Dose Route Start Last Admin Trade Name Freq PRN Reason Stop Dose Admin Acetaminophen 650 mg 10/13/20 11:36 Acetaminophen 325 Mg Tablet PO Q6H PRN Pain, Mild (Pain Scale 1-3) Aspirin 325 mg 10/14/20 10:00 10/15/20 09:01 Aspirin 325 Mg Tablet PO 325 mg BID ELKE Administration Atorvastatin Calcium 40 mg 10/13/20 21:00 10/14/20 20:21 Atorvastatin Calcium 40 Mg Tablet PO 40 mg BEDTIME ELKE Administration Celecoxib 200 mg 10/13/20 21:00 10/15/20 09:01 Celecoxib 200 Mg Capsule PO 200 mg BID ELKE Administration Docusate Sodium 100 mg 10/13/20 21:00 10/15/20 09:01 Docusate Sodium 100 Mg Capsule PO 100 mg BID ELKE Administration Hydromorphone HCl 0.25 mg 10/13/20 11:36 Hydromorphone Hcl 0.5 Mg/0.5 Ml Syringe IVPUSH Q4H PRN Pain, Severe (Pain Scale 7-10) Levothyroxine Sodium 100 mcg 10/14/20 06:00 10/15/20 06:23 Levothyroxine Sodium 100 Mcg Tablet PO 100 mcg DAILY@0600 ELKE Administration Naloxone HCl 0.2 mg 10/13/20 11:36 Naloxone Hcl 0.4 Mg/Ml Vial IVPUSH Q2M PRN Excessive sedation or RR < 8 Ondansetron HCl 4 mg 10/13/20 11:36 Ondansetron Hcl 4 Mg/2 Ml Vial IVPUSH Q8H PRN Nausea and Vomiting Oxycodone HCl 10 mg 10/13/20 11:36 10/14/20 09:18 Oxycodone Hcl Immed Release 5 Mg Tablet PO 10 mg Q4H PRN Administration Pain, Moderate (Pain Scale 4-6 Oxycodone HCl 10 mg 10/13/20 21:00 10/15/20 09:08 Oxycodone Hcl Er 10 Mg Tab.Er.12h PO 10 mg BID ELKE Administration Sodium Chloride 3 ml 10/13/20 16:00 10/15/20 09:01 0.9 % Sodium Chloride Flush 3 Ml Syringe IVFLUSH Not Given QSHIFT [facility] Labs CBC & Chem 7: 10/15/20 06:00 10/15/20 06:00 Assessment and Plan (1) Primary osteoarthritis of left hip: Status: Acute (2) Essential hypertension: Status: Acute (3) Acquired hypothyroidism: Status: Acute (4) Dyslipidemia: Status: Acute (5) Morbid obesity: Status: Acute Assessment and Plan: A 65 years old lady with PMH of HTN, HLD and hypothyroidism admitted for elective hip replacement surgery for osteoarthritis. Hypotension Symptomatic with lightheadedness, no source of bleeding identified Received IV fluid boluses To give blood transfusion Hold lisinopril Encourage activity and continue to monitor Acute anemia, symptomatic anemia Hemoglobin dropped to 8.3 this morning from 14.2 weeks prior to surgery No active bleeding noticed, site of surgery seems clean To give 2 units of blood transfusion Continue to monitor H&H No need for transfusion at this point Left hip arthroplasty Management per orthopedic team Hypertension Hold for now, to decide tomorrow morning HLD Continue atorvastatin Morbid obesity Advised to lose weight has obesity contributing to her all over condition Thank you for the consult, will monitor the patient with you
[2020-10-15] MEDS: 0.9 % Sodium Chloride Flush 3 ML SYRINGE IVFLUSH ×2 (16:44→22:16)
[2020-10-15] MEDS: Atorvastatin Calcium 40 MG TABLET PO (21:55)
[2020-10-16 06:11] LABS: MANUAL DIFF FLAG NO
[2020-10-16] MEDS: Levothyroxine Sodium 100 MCG TABLET PO (06:31)
[2020-10-16 06:33] LABS: Anion Gap 15 (12-20); Blood Urea Nitrogen 19 mg/dL (9-16); Calcium 8.3 mg/dL (8.4-10.2); Carbon Dioxide 22 mmol/L (22-29); Chloride 107 mmol/L (96-108); Creatinine Clr Calc Pharmacy 95.1; Estimated Glomerular Filt Rate > 60; Glucose Fasting 107 mg/dL (60-99); Potassium 3.6 mmol/L (3.3-5.1); Sodium 140 mmol/L (135-145)
[2020-10-16 07:05] LABS: Basophils Percent Auto 0.3 % (0-2); Eosinophils Absolute Auto 0.2 X10*3/uL (0.0-0.4); Hematocrit 29.1 % (37-47); Hemoglobin 9.6 g/dl (12.0-16.0); Imm Gran Abs Auto 0.11 X10*3/uL (0.00-0.03); Imm Gran Pct Auto 0.9 % (0.0-0.4); Lymphocytes Absolute Auto 1.7 X10*3/uL (1.2-4.9); Lymphocytes Percent Auto 14.4 % (20-40); Mean Corpuscular Hemoglobin 31.1 pg (27.0-33.0); Mean Corpuscular Volume 94.2 fL (80-98); Monocytes Absolute Auto 1.1 X10*3/uL (0.1-1.2); Monocytes Percent Auto 8.8 % (2-11); Neutrophils Absolute Auto 8.8 X10*3/uL (2.0-8.3); Neutrophils Percent Auto 73.6 % (45-73); Platelet Count 132 X10*3/uL (160-400); Red Blood Count 3.09 X10*6/uL (4.20-5.50); Red Cell Distribution Width 13.8 % (11.0-16.0); White Blood Count 11.9 X10*3/uL (4.8-10.8)
[2020-10-16 07:49] VITALS: BP 119/50; PULSE 70; RESP 16; TEMP 36.8; O2SAT 97
--- NOTE | 2020-10-16 08:12 | PM.DS ---
DS: Providers Provider Date of Service: 10/16/20 Date of admission: 10/13/20 06:17 Primary care physician: Vanda Hart MD Consults: 10/13/20 16:16 Consult to Hospitalist Routine Consulting Provider: Hospitalist Reason For Exam: medical managment s/p LT AMANDA DS: Diagnosis Discharge Diagnosis (1) Primary osteoarthritis of left hip: Problem details: Ms. Wyatt is a 65 yo female who presented to the office for ongoing left hip pain. She was found to have osteoarthritis of the left hip. She tried and failed all conservative treatment and continued to have difficulty with ambulation and ADLs. Therefor, she elected to proceed with a total hip arthroplasty. (2) Essential hypertension: (3) Acquired hypothyroidism: (4) Dyslipidemia: (5) Morbid obesity: DS: Medications Discharge Medications Home Medications: Home Medications Medication Instructions Recorded Confirmed atorvastatin 40 mg PO BEDTIME 10/09/20 10/09/20 Previous Rx's Medication Instructions Recorded levothyroxine 100 mcg tablet 100 mcg PO QAM #90 tab 09/10/20 lisinopril 10 mg tablet 10 mg PO DAILY #30 tab 09/28/20 cholecalciferol (vitamin D3) 1,250 1,250 mcg PO QWEEK 90 Days #13 cap 10/06/20 mcg (50,000 unit) capsule walker #1 ea 10/12/20 acetaminophen 650 mg PO Q6H PRN 30 Days #240 tab 10/14/20 aspirin 325 mg PO BID 30 Days #60 tab 10/14/20 docusate sodium 100 mg PO BID 30 Days #60 cap 10/14/20 oxycodone 5 mg PO Q4H PRN 7 Days #42 tab 10/14/20 DS: Summary Hospital Course Hospital Course: The patient underwent a successful left total hip arthroplasty, they were transferred to PACU and then to the floor to recover. During their stay, their vitals were stable, afebrile at 97.3. H/H was trending down so the patient was transfused with 2 units of PRBCs. H/H then improved to 9.6/29.1. POD 1 they were started on Aspirin 325mg po bid for DVT ppx, they also received Physical Therapy services twice a day. Prior to discharge, their dressing was changed, incision clean dry and intact, new Aquacel dressing applied and the plan was to be discharged home with VNA services. Time Spent with Patient Time attestation: Total time spent providing and/or coordinating discharge services: Discharge coordination time: Less than 30 minutes Physical Exam Vital Signs: Vital Signs: Last Vital Signs Temp 98.3 F 10/16/20 07:49 Pulse 70 10/16/20 07:49 Resp 16 10/16/20 07:49 BP 119/50 L 10/16/20 07:49 Pulse Ox 97 10/16/20 07:49 Body Mass Index 37.8 Const: General: cooperative, healthy appearing and no acute distress Resp: Effort & Inspection: normal respiratory effort and able to speak in complete sentences Cardio: Rate: regular rate Peripheral pulses: Peripheral pulses 2+ throughout GI: Palpation (GI): Soft to palpation Skin: Lesions: no lesions Rashes: no rashes Extrem: Other: Left hip no ecchymosis, redness, or drainage. Caryn intact. Incision intact, no redness or drainage. NVI. DS: Data Data Completed and Pending Completed studies during hospitalization [Text1]: Pending at discharge 10/13/20 10:59 Surgical [PTH] Routine Labs on day of discharge: Laboratory Results - last 24 hr 10/15/20 10/16/20 10/16/20 08:51 05:48 05:48 WBC 11.9 H RBC 3.09 L Hgb 9.6 L Hct 29.1 L MCV 94.2 MCH 31.1 MCHC 33.0 RDW 13.8 Plt Count 132 L MPV 13.0 H Immature Gran % (Auto) 0.9 H Neut % (Auto) 73.6 H Lymph % (Auto) 14.4 L Tift % (Auto) 8.8 Eos % (Auto) 2.0 Baso % (Auto) 0.3 Lymph # (Auto) 1.7 Tift # (Auto) 1.1 Eos # (Auto) 0.2 Baso # (Auto) 0.0 Abs Immat Gran (auto) 0.11 H Absolute Neuts (auto) 8.8 H Absolute Nucleated RBC 0.000 Nucleated RBC % (auto) 0.0 Sodium 140 Potassium 3.6 Chloride 107 Carbon Dioxide 22 Anion Gap 15 BUN 19 H Creatinine 0.67 Estim Creat Clear Calc 95.1 Estimated GFR > 60 Random Glucose TNP Fasting Glucose 107 H Calcium 8.3 L Blood Type O Positive Antibody Screen NEGATIVE Crossmatch See Detail Discharge Plan Discharge Patient Disposition: Home Health Service Referrals: [facility] [Outside] - 1 Day (discharged home with WITH NEW REFERRAL TO [facility] FOR HOME [facility]YSICAL [facility]ERAPY/ TO START DAY AFTER DISCHARGE PLEASE CALL THEM IF YOU HAVE NOT HEARD FROM THEM, BY [address] ALISIA HART PATIENT INSTRUCTED TO CALL FOR POST HOSPITAL DISCHARGE FOLLOW UP ORTHPEDIC-SURGICAL FOLLOW UP TRANSPORTATION FAMILY MEMBER) Daryl Baum PA-C [Physician Parlor Maid] - (10/29/20 1:00pm) Discharge Medications: New acetaminophen 325 mg Tablet 650 mg PO Q6H PRN (Reason: Pain, Mild (Pain Scale 1-3)) 30 Days Qty: 240 RF: 0 aspirin 325 mg Tablet 325 mg PO BID 30 Days Qty: 60 RF: 0 oxycodone 5 mg Tablet 5 mg PO Q4H PRN (Reason: Pain, Moderate (Pain Scale 4-6) 7 Days Qty: 42 RF: 0 docusate sodium 100 mg Capsule 100 mg PO BID 30 Days Qty: 60 RF: 0 [place]ued [place] [facility] [place] .MEDSUPPLY Qty: 1 RF: 0 atorvastatin 40 mg tablet 40 mg PO BEDTIME RF: 0 levothyroxine 100 mcg tablet 100 mcg PO QAM Qty: 90 RF: 1 lisinopril 10 mg tablet 10 mg PO DAILY Qty: 30 RF: 1 cholecalciferol (vitamin D3) 1,250 mcg (50,000 unit) capsule 1,250 mcg PO QWEEK 90 Days Qty: 13 RF: 0 Discontinued acetaminophen [Tylenol Extra Strength] 500 mg Capsule 1,000 mg PO Q6H PRN (Reason: Pain) RF: 0 Discharge Orders: Discharge Order (Routine); Ordered 10/16/20 Ordered By: Lilibeth Peck Diet: regular diet Activity on Discharge: Use cane or walker Stand Alone Forms: Patient Portal Discharge page Activity Restrictions/Additional Instructions: Physical Therapy for Total hip arthroplasty: posterior precautions, gait training, ROM, strength Limit stair climbing No showering, no tub bath-keep dressing clean, dry and intact No driving x6 weeks Continue Aspirin 325mg tabs twice a day x 4 weeks Follow up with [facility] in 2 weeks Care Plan Goals: Restore function of left hip Health Concerns: none Plan of Treatment: Physical Therapy Pain management DVT prophylaxis
[2020-10-16] MEDS: Celecoxib 200 MG CAPSULE PO (08:19)
[2020-10-16] MEDS: Docusate Sodium 100 MG CAPSULE PO (08:19)
[2020-10-16] MEDS: Aspirin 325 MG TABLET PO (08:19)
[2020-10-16] MEDS: 0.9 % Sodium Chloride Flush 3 ML SYRINGE IVFLUSH (08:20)
[2020-10-16] MEDS: oxyCODONE HCl ER 10 MG TAB.ER.12H PO (08:20)
--- NOTE | 2020-10-16 08:28 | MHC.CM.PN ---
nurse rn medicare note electronic medical record reviewed along with case discussed with staff nurse and community engagement manager discharge disposition, met again with patient, she is aware of her discharge andwill have family member provide transport home. discharge [facility] [id number] thearpy , withn start date sat. 10/17/[address] bajwa patient will call for post hospital discharge follow up orthopedic surgical follow up[ per d/c instructions update clinical sent to the [facility] for dischagre
[2020-10-16 08:32] VITALS: BP 119/50; PULSE 70; O2SAT 97
--- NOTE | 2020-10-16 12:03 | HO.PM.IMPN ---
Subjective Subjective Date of Service: 10/16/20 Review of Systems the patient was seen and evaluated this morning Laying in bed, feels comfortable with more energy Denies any fever, chills or shortness of breath No reported other overnight events. Systemic review: No fever, chills but but has pain at surgery site No chest pain, palpitation No shortness of breath or coughing No abdominal pain, nausea or vomiting No urinary symptoms No any rash or wounds Physical Exam Vital Signs: Vital Signs: Last Vital Signs Temp 98.3 F 10/16/20 07:49 Pulse 70 10/16/20 08:32 Resp 16 10/16/20 07:49 BP 119/50 L 10/16/20 08:32 Pulse Ox 97 10/16/20 08:32 Body Mass Index 37.8 Const: Other: Constitutional : Alert, oriented, not in distress Neck : Normal inspection, Supple Cardiovascular : RRR, S1 S2, no lower extremity edema Respiratory : Good bilateral air entry, no crackles, wheezes or rhonchi Gastrointestinal: soft, lax, Normal bowel sounds, Non tender Skin : Warm/Dry, No rash Neurological : Alert & oriented x3, No focal deficit Objective Data Labs CBC & Chem 7: 10/16/20 05:48 10/16/20 05:48 Assessment and Plan (1) Primary osteoarthritis of left hip: (2) Essential hypertension: (3) Acquired hypothyroidism: (4) Dyslipidemia: (5) Morbid obesity: Assessment and Plan: A 65 years old lady with PMH of HTN, HLD and hypothyroidism admitted for elective hip replacement surgery for osteoarthritis. Hypotension Improved Encourage activity and continue to monitor Acute anemia, symptomatic anemia No active bleeding noticed, site of surgery seems clean Improved to 9.6 after 2 units transfusion Continue to monitor H&H No need for transfusion at this point Left hip arthroplasty Management per orthopedic team Hypertension Hold for now, to decide tomorrow morning HLD Continue atorvastatin Morbid obesity Advised to lose weight has obesity contributing to her all over condition Thank you for the consult, will monitor the patient with you
== END 2020-10-16 10:10 | disposition home health service (06) | DRG 301 ==
LOC: HO.SSSA 06:18 → HO.S3 14:46
PROVIDERS: Physician Assistant; Student in an Organized Health Care Education/Training Program; Admitting Provider Orthopaedic Surgery; PCP Internal Medicine; Visit Provider Orthopaedic Surgery
PROC: 0SRB0JA Replacement of Left Hip Joint with Synthetic Substitute, Uncemented, Open Approach (ICD-10-PCS; CPT 27130; principal; 2020-10-13 07:30)
DX: M16.52 Unilateral post-traumatic osteoarthritis, left hip (principal); E66.01 Morbid (severe) obesity due to excess calories; I10 Essential (primary) hypertension; D62 Acute posthemorrhagic anemia; E78.5 Hyperlipidemia, unspecified; Z68.37 Body mass index [BMI] 37.0-37.9, adult; Z20.822 Contact with and (suspected) exposure to COVID-19; E03.9 Hypothyroidism, unspecified; Z88.0 Allergy status to penicillin; I95.81 Postprocedural hypotension; Z88.2 Allergy status to sulfonamides; Z88.5 Allergy status to narcotic agent; Z79.890 Hormone replacement therapy; Z79.899 Other long term (current) drug therapy
CPT/HCPCS: 36415; 72170; 80048; 85025; 85027; 86850; 86900; 86923; 87635; 87640; 87641; 88304; 88311; 97110; 97116; 97162; 97166; 97535; C1713; C1776; J0131; J1170; J2250; J2370; J2405; J3010; J3370; P9016

== ENCOUNTER → 2020-10-29 12:51 | Outpatient (BNVA) | payer OTHER, SELFPAY | PROVIDERS: PCP Internal Medicine; Visit Provider Physician Assistant ==

== ENCOUNTER 2020-11-17 08:45 | Outpatient (REF) | payer OTHER, SELFPAY | END 2020-11-17 08:46 | disposition home or self-care (01) | LOC: HO.MAMMO 08:45 | PROVIDERS: PCP Internal Medicine; Visit Provider Internal Medicine | DX: Z13.89 Encounter for screening for other disorder (principal) ==

== ENCOUNTER 2020-11-30 08:20 | Outpatient (REF) | payer OTHER, SELFPAY | END 2020-11-30 08:21 | disposition home or self-care (01) | LOC: HO.HOSX 08:20 | PROVIDERS: Visit Provider Orthopaedic Surgery | DX: Z13.89 Encounter for screening for other disorder (principal) ==

== ENCOUNTER 2020-12-03 08:42 | Outpatient (REF) | payer OTHER, SELFPAY ==
--- NOTE | ~2020-12-03 | XR_ITS ---
EXAMINATION: XR PELVIS CLINICAL INFORMATION: Pain. COMPARISON: None. TECHNIQUE: AP view of the pelvis. Crosstable lateral view right hip. 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 There is loss of right hip joint space. The SI joint space is normal. No acute fracture or lytic process seen. Crosstable lateral view left hip reveals the prosthetic components of left hip to be in satisfactory alignment. No bony abnormality seen. XR/XR pelvis min 3V IMPRESSION: Total left hip prosthesis in satisfactory alignment. No prosthetic loosening or bony abnormality. Mild degenerative changes right hip joint. SI joints are normal. No visible acute fracture or dislocation seen.
== END 2020-12-03 08:43 | disposition home or self-care (01) ==
LOC: HO.HOSX 08:42
PROVIDERS: Visit Provider Orthopaedic Surgery
DX: Z47.1 Aftercare following joint replacement surgery (principal); Z96.642 Presence of left artificial hip joint
CPT/HCPCS: 72190

== ENCOUNTER 2021-01-08 08:00 | Outpatient (RCR) | payer OTHER, SELFPAY ==
--- NOTE | 2020-11-23 12:48 | MHC.PT.EP ---
[facility] [place] [facility] [place] Office [place] [facility] [address] Casey Short [address] [phone] F: [phone] F: [phone] F: [phone] F: [phone] Physical Therapy Plan of Care Date of Evaluation: Date of Surgery: October 13 Diagnosis: L AMANDA Assessment: Patient is a 65 year old R handed female who presents with s/s consistent with L AMANDA. 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 She notes limping for a long time before getting the surgery. She has been I with HEP since surgery. Patient past medical history includes HTN and high cholesterol. Current impairments include pain, ROM, strength, safety, independence, activity tolerance and functional mobility. Functional limitations include decreased ability to walk, stand, transfer, negotiate stairs, and perform weight bearing activities.. Patient is motivated with good rehab potential. Skilled PT will address impairments and functional limitations in order to achieve goals. Frequency and Duration: The patient will be seen 2x/week for 5 weeks Short Term Goals: I with HEP - 2 weeks Amb - no AD, symmetrical mechanics - 3 weeks Compliant with precautions with no setbacks/complications - 3 weeks Screen Repairer Crusher Goals: Stair mechanics symmetrical, step through with no HH assist - 5 weeks Hip and knee strength 4+/5 grossly - 5 weeks LEFS 60/80 - 5 weeks Treatment Plan: Modalities to reduce pain, spasms and effusion. Manual therapy to restore motion and function. Therapeutic exercise to improve strength and flexibility. Neuromuscular re-education for posture and balance. Therapeutic activities to return to functional activities of daily living. Electronically signed by: Chidi Byrd, PT Please sign and return to therapist. Thank you for your referral.
--- NOTE | 2021-01-08 09:10 | MHC.PT.DC ---
[facility] [place] Office [place] Office [place] Office [address] Casey Short [address] [phone] F: [phone] F: [phone] F: [phone] F: [phone] Physical Therapy Discharge Report Diagnosis: L AMANDA Date of Surgery: 10/13/20 Date of Evaluation: 11/23/20 Date of Discharge: 01/08/21 Treatments to Date: 10 Cancellations to Date: 0 No Shows to Date: 0 Discharge Status: Achieved Goals Improved Function Independent with HEP Discharge Summary: Reviewed hip precautions and HEP, no further questions at this time. Pt appropriate for d/c secondary to meeting goals and independent with HEP. LEFS 68/80. Electronically signed by: Flora Banuelos, PT Please sign and return to therapist. Thank you for your referral.
== END 2021-02-08 08:24 | disposition home or self-care (01) ==
LOC: HO.PTCHIC 08:00
PROVIDERS: PCP Internal Medicine; Visit Provider Physician Assistant
DX: Z96.642 Presence of left artificial hip joint (principal)
CPT/HCPCS: 97110; 97112; 97116; 97140; 97161; 97530

== ENCOUNTER 2021-01-14 10:18 | Outpatient (REF) | payer OTHER, SELFPAY ==
[2021-01-14 14:01] LABS: MANUAL DIFF FLAG NO
[2021-01-14 14:11] LABS: Basophils Percent Auto 0.4 % (0-2); Eosinophils Absolute Auto 0.2 X10*3/uL (0.0-0.4); Eosinophils Percent Auto 1.9 % (0-4); Hematocrit 39.6 % (37-47); Hemoglobin 12.9 g/dl (12.0-16.0); Imm Gran Abs Auto 0.07 X10*3/uL (0.00-0.03); Imm Gran Pct Auto 0.7 % (0.0-0.4); Lymphocytes Absolute Auto 1.6 X10*3/uL (1.2-4.9); Lymphocytes Percent Auto 17.3 % (20-40); Mean Corpuscular HGB Conc 32.6 g/dl (31.0-35.0); Mean Corpuscular Hemoglobin 30.2 pg (27.0-33.0); Mean Corpuscular Volume 92.7 fL (80-98); Mean Platelet Volume 12.8 fL (9.4-12.3); Monocytes Absolute Auto 0.7 X10*3/uL (0.1-1.2); Monocytes Percent Auto 7.2 % (2-11); Neutrophils Absolute Auto 6.9 X10*3/uL (2.0-8.3); Neutrophils Percent Auto 72.5 % (45-73); Platelet Count 220 X10*3/uL (160-400); Red Blood Count 4.27 X10*6/uL (4.20-5.50); Red Cell Distribution Width 13.2 % (11.0-16.0); White Blood Count 9.5 X10*3/uL (4.8-10.8)
[2021-01-14 14:39] LABS: Vitamin D 25-OH Total 66.2 ng/mL (>30)
== END 2021-01-14 10:19 | disposition home or self-care (01) ==
LOC: HO.HMGCLDS 10:18
PROVIDERS: Physician Assistant; PCP Internal Medicine; Visit Provider Internal Medicine
DX: Z01.812 Encounter for preprocedural laboratory examination (principal); Z47.1 Aftercare following joint replacement surgery; E55.9 Vitamin D deficiency, unspecified; F17.210 Nicotine dependence, cigarettes, uncomplicated; Z96.642 Presence of left artificial hip joint
CPT/HCPCS: 36415; 82306; 85025

== ENCOUNTER 2021-03-10 12:33 | Outpatient (REF) | payer OTHER, SELFPAY ==
--- NOTE | ~2021-03-10 | MM_ITS ---
EXAMINATION: MM SCREENING DIGITAL BREAST TOMOSYNTHESIS, BILATERAL CLINICAL INFORMATION: Screening. Asymptomatic. No prior breast imaging. Age 65. Family history breast cancer, paternal grandmother. The lifetime risk of breast cancer based on the Tyrer-Cuzick Model is 13%. COMPARISON: None (current study represents initial baseline exam). TECHNIQUE: Digital breast tomosynthesis is performed in both the craniocaudal and mediolateral oblique views along with computer-aided detection (CAD). Synthesized 2D images are generated from the tomosynthesis. FINDINGS: The breasts are almost entirely fatty (ACR BI-RADS breast composition Category a). There is no mass or architectural abnormality or focal asymmetric density. There are no abnormal calcifications. The axilla and skin contours are unremarkable. MM/MM tomosynthesis screening BI IMPRESSION: No mammographic evidence of malignancy. ASSESSMENT: BI-RADS 1: Negative RECOMMENDATION: Routine annual mammography screening. This patient's information was entered into a reminder system with a target due date for their next mammogram.
--- NOTE | ~2021-03-10 | MM_ITS ---
EXAMINATION: BONE DENSITOMETRY CLINICAL INDICATION: Encounter for other screening of her malignant neoplasm of breast. COMPARISON: This is the patient's baseline examination. TECHNIQUE: Using a [employer] DXA System (software version: 13.1) manufactured by [employer], dual-energy x-ray absorptiometry was performed of the lumbar spine and right hip. The images are of good technical quality. Summary results are attached. FINDINGS: AP SPINE L1-L4: BMD 1.177 g/cm2, Z-score 0.5, T-score 0.0, normal. RIGHT FEMUR, NECK: BMD 0.763 g/cm2, Z-score -1.2, T-score -2.0, osteopenia. RIGHT FEMUR, TOTAL: BMD 0.802 g/cm2, Z-score -1.2, T-score -1.6, osteopenia. IDENTIFIED RISK FACTORS: Early menopause, secondary osteoporosis. HISTORY OF FRACTURE: None listed. MEDICATIONS: Vitamin D. MM/XR DEXA axial skeleton IMPRESSION: 1. DIAGNOSIS: Osteopenia based on the lowest T-score value of -2.0 in the femoral neck applying World Health Organization criteria. 2. 10-YEAR FRACTURE RISK PREDICTION, FRAX: Major osteoporotic fracture (clinical spine, forearm, hip or shoulder) 9.3%. Hip fracture 1.2%. 3. Treatment Recommendations: NOF guidelines recommend consideration for treatment in postmenopausal women and men age 50 and older presenting with the following: -A hip or vertebral (clinical or morphometric) fracture. -T-score less than or equal to -2.5 at the femoral neck or spine after appropriate evaluation to exclude secondary causes. -Low bone mass at the hip or spine and a 10-year fracture probability by FRAX of greater than or equal to 3% for hip fracture or greater than or equal to 20% for major osteoporotic fracture based on the [place] adapted WHO algorithm. 4. Other Recommendations: All treatment decisions require clinical judgment and consideration of individual patient factors, including patient preferences, comorbidities, previous drug use, risk factors not captured in the FRAX model (e.g. frailty, falls, vitamin D deficiency, increased bone turnover, interval significant decline in bone density) and possible under or overestimation of fracture risk by FRAX. Additional medical evaluation for secondary cause of low bone mineral density may be appropriate. FUTURE SCAN RECOMMENDATION: People with diagnosed cases of osteoporosis or at high risk for fracture should have regular bone mineral density tests. For patients eligible for Medicare, routine testing is allowed once every 2 years. The testing frequency can be increased to one year for patients who have rapidly progressing disease, those who are receiving or discontinuing medical therapy to restore bone mass, or have additional risk factors.
== END 2021-03-10 12:34 | disposition home or self-care (01) ==
LOC: HO.MAMMO 12:33
PROVIDERS: PCP Internal Medicine; Visit Provider Internal Medicine
DX: Z12.31 Encounter for screening mammogram for malignant neoplasm of breast (principal); Z13.29 Encounter for screening for other suspected endocrine disorder; M85.80 Other specified disorders of bone density and structure, unspecified site; Z78.0 Asymptomatic menopausal state; Z79.899 Other long term (current) drug therapy
CPT/HCPCS: 77063; 77067; 77080

== ENCOUNTER 2021-08-04 13:20 | Outpatient (REF) | payer OTHER, SELFPAY ==
--- NOTE | ~2021-08-04 | CT_ITS ---
EXAMINATION: CT CHEST SCREENING CLINICAL INFORMATION: Personal history of nicotine dependence. COMPARISON: CT chest 01/23/2020. TECHNIQUE: Multidetector volumetric CT imaging of the chest is performed without contrast using low dose technique. Additional 2D coronal and sagittal reformatted images and axial 3D maximum intensity projection (MIP) images are generated on the CT workstation. This CT examination was performed using dose optimization techniques as appropriate, variously including the following: *Automated exposure control *Adjustment of mA and/or kV according to patient size (this includes techniques or standardized protocols for targeted exams where dose is matched to indication/reason for exam; i.e. extremities or head) *Use of iterative reconstruction technique DLP: 69 mGy-cm FINDINGS: LUNGS: The lungs are well expanded with plate-like atelectasis right lower lobe. There is no acute pneumonic process. There is 4 mm nodule right lower lobe axial image 217/6, stable. No additional pulmonary nodule seen. MEDIASTINUM: The thyroid lobes are symmetric and normal. The central trachea and bronchi are widely patent. The heart size and great vessels are normal caliber. There are small lymph nodes in the pretracheal space. There is no pericardial effusion seen. There are coronary artery calcifications present. PLEURA: There is no pleural effusion. No pleural mass or thickening. AXILLA: No lymphadenopathy. UPPER ABDOMEN: Visualized liver, spleen are unremarkable. There is a 4.2 x 4.4 cm cyst in the body of the pancreas. There is atrophy in the rest of the pancreas. Previously this cyst measured 1.4 x 1.4 cm on axial image 56/3, CT exam 01/23/2020. OSSEOUS STRUCTURES: There is moderate spondylosis mid and lower dorsal spine. No lytic process. CT/CT lung screening IMPRESSION: Stable noncalcified 1 cm nodule right lower lobe. Atrophy of pancreas with developing cyst body of the pancreas. It has significantly increased in size since 01/23/2020. Recommend correlation with CT or ultrasound. ASSESSMENT: Lung-RADS category 2: Benign. RECOMMENDATION: Low-dose annual CT chest.
== END 2021-08-04 13:21 | disposition home or self-care (01) ==
LOC: HO.CT 13:20
PROVIDERS: PCP Internal Medicine; Visit Provider Physician Assistant Medical
DX: Z87.891 Personal history of nicotine dependence (principal)
CPT/HCPCS: 71271

== ENCOUNTER 2021-08-07 10:32 | Outpatient (REF) | payer OTHER, SELFPAY ==
[2021-08-07 13:59] LABS: Alanine Aminotransferase 22 U/L (0-31); Albumin Level 4.2 g/dL (3.5-5.0); Alkaline Phosphatase 106 U/L (39-117); Anion Gap 11 (12-20); Aspartate Amino Transferase 21 U/L (5-31); Bilirubin Total 0.6 mg/dL (0.0-1.0); Blood Urea Nitrogen 24 mg/dL (9-16); Calcium 9.5 mg/dL (8.4-10.2); Carbon Dioxide 28 mmol/L (22-29); Chloride 106 mmol/L (96-108); Estimated Glomerular Filt Rate > 60; Glucose Fasting 140 mg/dL (60-99); Potassium 4.8 mmol/L (3.3-5.1); Sodium 140 mmol/L (135-145); Total Protein 6.7 g/dL (6.5-8.0)
== END 2021-08-07 10:33 | disposition home or self-care (01) ==
LOC: HO.HMGCLDS 10:32
PROVIDERS: Visit Provider Internal Medicine
DX: K86.2 Cyst of pancreas (principal)
CPT/HCPCS: 36415; 80053

== ENCOUNTER 2021-09-21 09:34 | Outpatient (REF) | payer SELFPAY ==
[2021-09-21 11:39] LABS: MANUAL DIFF FLAG NO
[2021-09-21 11:52] LABS: Basophils Absolute Auto 0.1 X10*3/uL (0.0-0.2); Basophils Percent Auto 0.7 % (0-2); Eosinophils Absolute Auto 0.2 X10*3/uL (0.0-0.4); Eosinophils Percent Auto 2.4 % (0-4); Hematocrit 41.6 % (37.0-47.0); Hemoglobin 13.5 g/dl (12.0-16.0); Imm Gran Abs Auto 0.02 X10*3/uL (0.00-0.03); Imm Gran Pct Auto 0.3 % (0.0-0.4); Lymphocytes Absolute Auto 1.4 X10*3/uL (1.2-4.9); Lymphocytes Percent Auto 19.6 % (20-40); Mean Corpuscular HGB Conc 32.5 g/dl (31.0-35.0); Mean Corpuscular Hemoglobin 30.5 pg (27.0-33.0); Mean Corpuscular Volume 94.1 fL (80.0-98.0); Mean Platelet Volume 12.6 fL (9.4-12.3); Monocytes Absolute Auto 0.7 X10*3/uL (0.1-1.2); Monocytes Percent Auto 9.4 % (2-11); Neutrophils Absolute Auto 4.7 x10*3/uL (2.0-8.3); Neutrophils Percent Auto 67.6 % (45-73); Platelet Count 183 X10*3/uL (160-400); Red Blood Count 4.42 X10*6/uL (4.20-5.50); Red Cell Distribution Width 14.1 % (11.0-16.0)
[2021-09-21 11:57] LABS: Estimated Average Glucose 117 mg/dL; Hemoglobin A1c % 5.7 %
[2021-09-21 12:07] LABS: Alanine Aminotransferase 27 U/L (0-31); Anion Gap 14 (12-20); Aspartate Amino Transferase 28 U/L (5-31); Blood Urea Nitrogen 24 mg/dL (9-16); Calcium 9.6 mg/dL (8.4-10.2); Carbon Dioxide 25 mmol/L (22-29); Chloride 106 mmol/L (96-108); Cholesterol 136 mg/dL; Estimated Glomerular Filt Rate > 60; Glucose Fasting 124 mg/dL (60-99); HDL Cholesterol 48 mg/dL; LDL Cholesterol Calculated 76 mg/dl; Potassium 4.4 mmol/L (3.3-5.1); Sodium 141 mmol/L (135-145); Triglycerides 63 mg/dL
[2021-09-21 12:18] LABS: Free T4 (Free Thyroxine) 1.29 ng/dL (0.71-1.85); Thyroid Stimulating Hormone 1.42 uIU/mL (0.32-4.0); Vitamin D 25-OH Total 43.7 ng/mL (>30)
== END 2021-09-21 09:35 | disposition home or self-care (01) ==
LOC: HO.HMGCLDS 09:34
PROVIDERS: PCP Internal Medicine; Visit Provider Internal Medicine
DX: Z00.01 Encounter for general adult medical examination with abnormal findings (principal); E55.9 Vitamin D deficiency, unspecified; E78.5 Hyperlipidemia, unspecified; I10 Essential (primary) hypertension; M85.80 Other specified disorders of bone density and structure, unspecified site; R19.5 Other fecal abnormalities; E03.9 Hypothyroidism, unspecified
CPT/HCPCS: 36415; 80048; 80061; 82306; 83036; 84439; 84443; 84450; 84460; 85025

== ENCOUNTER 2021-10-11 09:51 | Outpatient (REF) | payer SELFPAY ==
--- NOTE | ~2021-10-11 | XR_ITS ---
EXAMINATION: XR PELVIS CLINICAL INFORMATION: Pelvic pain. COMPARISON: AP pelvis of 12/03/2020. TECHNIQUE: AP view of the pelvis. FINDINGS: A total left hip prosthesis with prosthetic components in satisfactory alignment. No periprosthetic fracture or prosthetic loosening seen. Mild loss of right hip joint space is seen without bony erosive changes or loose bodies. No visible acute fracture or dislocation seen. XR/XR pelvis 1-2V IMPRESSION: Total left hip prosthesis in satisfactory position. No prosthetic loosening or periprosthetic fracture. Mild degenerative changes of right hip joint. Rest of the pelvic bones are unremarkable.
== END 2021-10-11 09:52 | disposition home or self-care (01) ==
LOC: HO.HOSX 09:51
PROVIDERS: Visit Provider Orthopaedic Surgery
DX: Z47.1 Aftercare following joint replacement surgery (principal); Z96.642 Presence of left artificial hip joint
CPT/HCPCS: 72170; 99212

== ENCOUNTER → 2021-11-05 10:41 | Outpatient (BNVA) | payer SELFPAY | PROVIDERS: PCP Internal Medicine; Referring Provider Internal Medicine; Visit Provider Internal Medicine Gastroenterology | DX: Z13.89 Encounter for screening for other disorder (principal) ==

== ENCOUNTER 2022-01-10 17:14 | Outpatient (REF) | payer BC, SELFPAY ==
--- NOTE | ~2022-01-10 | MR_ITS ---
EXAMINATION: MR ABDOMEN WITHOUT AND WITH CONTRAST CLINICAL INFORMATION: Pancreatic cyst COMPARISON: Previous chest CT July 2021 TECHNIQUE: MR abdomen was performed without and with use of 10 mL intravenous Gadavist gadolinium contrast. Postcontrast images are performed in multiphase dynamic sequences. Imaging was performed in 3 planes. MRCP sequences were also performed. FINDINGS: LUNG BASES: The visualized lung bases are unremarkable. LIVER, GALLBLADDER, AND BILIARY TREE: The liver is normal in size, smooth in contour. There is signal loss in the liver on out of phase sequences suggestive of fatty infiltration. No focal hepatic lesion or biliary ductal dilatation is present. The gallbladder is unremarkable with no evidence of gallbladder wall thickening, or obvious pericholecystic inflammatory changes. PANCREAS: Pancreas appears atrophic. There is a 4 cm cyst in the body of the pancreas. This has a slightly thickened wall which demonstrates some mild enhancement. No septation, or solid component is seen. This appears unchanged from previous chest CT scan. There is a small 0.8 x 10 mm exophytic to the neck of the pancreas. This does not demonstrate evidence of enhancement. There is a third multiloculated cyst in the uncinate process of the head of the pancreas. This measures 1.1 x 1.6 cm and has several septations. There is a 4 small 7 mm cyst in the uncinate process of the head of the pancreas with several septations. The latter 2 cysts in the uncinate process of the head of the pancreas are difficult to define and visualized on T1-weighted sequences and difficult to evaluate for enhancement. No solid pancreatic mass is seen. The main pancreatic duct does not appear dilated. SPLEEN: Normal. ADRENAL GLANDS: Normal. KIDNEYS AND URETERS: The kidneys are normal in size, shape, and enhance symmetrically. No hydronephrosis. No perinephric stranding. GASTROINTESTINAL TRACT: Diverticulosis of the colon. No bowel obstruction. No ascites or fluid collection. ABDOMINAL WALL: No significant hernia is appreciated. LYMPH NODES: No lymphadenopathy. VASCULAR: Unremarkable. OSSEOUS STRUCTURES: Marrow signal normal. There are degenerative changes of the spine. Adrenal and the localizer and sagittal and coronal sequences only a left pelvic cyst measuring 3 cm questionable for left ovarian cyst. There is question of smaller right ovarian cysts as well. The uterus also appears for the patient's age. MR/MR abdomen wo/w con IMPRESSION: Atrophic pancreas. 4 separate pancreatic cysts identified, largest measuring 4 cm in the body of the pancreas. Largest cyst does not appear appreciably changed from previous chest CT July 2021. Other cysts are difficult to visualize on CT and compare. Cystic pancreatic neoplasm should be considered. Fatty liver. Diverticulosis.
== END 2022-01-10 17:15 | disposition home or self-care (01) ==
LOC: HO.MRI 17:14
PROVIDERS: Visit Provider Internal Medicine Gastroenterology
DX: K86.2 Cyst of pancreas (principal)
CPT/HCPCS: 74183; A9585

== ENCOUNTER 2022-03-01 10:53 | Outpatient (REF) | payer BC, SELFPAY ==
[2022-03-02 08:56] LABS: Carbohydrate Antigen 19-9 <3 U/mL (<34)
[2022-03-02 14:37] LABS: Immunoglobulin G Subclass 1 455 mg/dL (382-929); Immunoglobulin G Subclass 2 224 mg/dL (241-700); Immunoglobulin G Subclass 3 31 mg/dL (22-178); Immunoglobulin G Subclass 4 30.3 mg/dL (4-86); Immunoglobulin G Total 794 mg/dL (600-1540)
[2022-03-02 14:42] LABS: IgA 221 mg/dL (70-320); IgG 876 mg/dL (600-1540); IgM 57 mg/dL (50-300)
[2022-03-03 08:51] LABS: Transglutaminase Ab IgG <1.0 U/mL; Transglutaminase IgA <1.0 U/mL
[2022-03-03 16:01] LABS: Anti Nuclear Antibody Screen POSITIVE (NEGATIVE)
== END 2022-03-01 10:54 | disposition home or self-care (01) ==
LOC: HO.HMGCLDS 10:53
PROVIDERS: PCP Internal Medicine; Visit Provider Internal Medicine Gastroenterology
DX: K86.2 Cyst of pancreas (principal); R79.82 Elevated C-reactive protein (CRP); R10.33 Periumbilical pain; G89.29 Other chronic pain
CPT/HCPCS: 36415; 82784; 86038; 86039; 86301; 86364

== ENCOUNTER 2022-03-14 10:02 | Outpatient (REF) | payer BC, SELFPAY ==
--- NOTE | ~2022-03-14 | MM_ITS ---
EXAMINATION: MM SCREENING DIGITAL BREAST TOMOSYNTHESIS, BILATERAL CLINICAL INFORMATION: Screening. Asymptomatic. The lifetime risk of breast cancer based on the Tyrer-Cuzick Model is 12.2%. COMPARISON: Mammography: March 10, 2021 TECHNIQUE: Digital breast tomosynthesis is performed in both the craniocaudal and mediolateral oblique views along with computer-aided detection (CAD). Synthesized 2D images are generated from the tomosynthesis. FINDINGS: The breasts are almost entirely fatty (ACR BI-RADS breast composition Category a). There are no significant masses, abnormal calcifications, or other abnormalities. MM/MM tomosynthesis screening BI IMPRESSION: No significant changes from prior exam. ASSESSMENT: BI-RADS 1: Negative RECOMMENDATION: Routine annual mammography screening. This patient's information was entered into a reminder system with a target due date for their next mammogram.
== END 2022-03-14 10:03 | disposition home or self-care (01) ==
LOC: HO.MAMMO 10:02
PROVIDERS: PCP Internal Medicine; Visit Provider Internal Medicine
DX: Z12.31 Encounter for screening mammogram for malignant neoplasm of breast (principal)
CPT/HCPCS: 77063; 77067

== ENCOUNTER 2022-09-10 11:54 | Outpatient (REF) | payer MEDICARE, SELFPAY ==
[2022-09-10 13:55] LABS: Estimated Average Glucose 160 mg/dL; Hemoglobin A1c % 7.2 %
[2022-09-10 14:02] LABS: Alanine Aminotransferase 34 U/L (0-31); Anion Gap 18 (12-20); Aspartate Amino Transferase 28 U/L (5-31); Blood Urea Nitrogen 22 mg/dL (9-16); Calcium 9.7 mg/dL (8.4-10.2); Carbon Dioxide 24 mmol/L (22-29); Chloride 102 mmol/L (96-108); Cholesterol 181 mg/dL; Estimated Glomerular Filt Rate > 60; Glucose Fasting 262 mg/dL (60-99); HDL Cholesterol 63 mg/dL; LDL Cholesterol Calculated 91 mg/dl; Potassium 4.6 mmol/L (3.3-5.1); Sodium 139 mmol/L (135-145); Triglycerides 136 mg/dL
[2022-09-10 14:18] LABS: Free T4 (Free Thyroxine) 1.19 ng/dL (0.71-1.85); Thyroid Stimulating Hormone 5.17 uIU/mL (0.32-4.0); Vitamin D 25-OH Total 33.1 ng/mL (>30)
== END 2022-09-10 11:55 | disposition home or self-care (01) ==
LOC: HO.HMGCLDS 11:54
PROVIDERS: PCP Internal Medicine; Visit Provider Internal Medicine
DX: E03.9 Hypothyroidism, unspecified (principal); E55.9 Vitamin D deficiency, unspecified; I10 Essential (primary) hypertension; M85.80 Other specified disorders of bone density and structure, unspecified site; R73.01 Impaired fasting glucose; E78.5 Hyperlipidemia, unspecified
CPT/HCPCS: 36415; 80048; 80061; 82306; 83036; 84439; 84443; 84450; 84460

== ENCOUNTER 2022-12-07 11:35 | Outpatient (REF) | payer MEDICARE, SELFPAY ==
[2022-12-07 14:29] LABS: Estimated Average Glucose 131 mg/dL; Hemoglobin A1c % 6.2 %
[2022-12-07 14:38] LABS: Alanine Aminotransferase 16 U/L (0-31); Anion Gap 14 (12-20); Aspartate Amino Transferase 25 U/L (5-31); Blood Urea Nitrogen 21 mg/dL (9-16); Calcium 9.8 mg/dL (8.4-10.2); Carbon Dioxide 28 mmol/L (22-29); Chloride 103 mmol/L (96-108); Estimated Glomerular Filt Rate > 60; Glucose Fasting 111 mg/dL (60-99); Potassium 4.3 mmol/L (3.3-5.1); Sodium 141 mmol/L (135-145)
[2022-12-07 15:14] LABS: Free T4 (Free Thyroxine) 1.24 ng/dL (0.71-1.85); Thyroid Stimulating Hormone 8.13 uIU/mL (0.32-4.0); Vitamin D 25-OH Total 54.9 ng/mL (>30)
[2022-12-07 15:19] LABS: Creatinine Urine 154.11 mg/dL; Microalbum/Creatinine Ratio Ur 40.2 ug/mg cr
== END 2022-12-07 11:36 | disposition home or self-care (01) ==
LOC: HO.HMGCLDS 11:35
PROVIDERS: PCP Internal Medicine; Visit Provider Internal Medicine
DX: E03.9 Hypothyroidism, unspecified (principal); E11.65 Type 2 diabetes mellitus with hyperglycemia; E78.5 Hyperlipidemia, unspecified; I10 Essential (primary) hypertension
CPT/HCPCS: 36415; 80048; 82043; 82306; 83036; 84439; 84443; 84450; 84460

== ENCOUNTER 2023-03-17 10:30 | Outpatient (REF) | payer MEDICARE, SELFPAY ==
--- NOTE | ~2023-03-17 | CT_ITS ---
EXAMINATION: CT CHEST SCREENING CLINICAL INFORMATION: 30 pack year smoking history; former smoker. COMPARISON: CT chest dated 08/04/2021. TECHNIQUE: Multidetector volumetric CT imaging of the chest is performed without contrast using low dose technique. Additional 2D coronal and sagittal reformatted images and axial 3D maximum intensity projection (MIP) images are generated on the CT workstation. This CT examination was performed using dose optimization techniques as appropriate, variously including the following: *Automated exposure control *Adjustment of mA and/or kV according to patient size (this includes techniques or standardized protocols for targeted exams where dose is matched to indication/reason for exam; i.e. extremities or head) *Use of iterative reconstruction technique DLP: 114 mGy-cm FINDINGS: LUNGS: Within the superior segment of the right lower lobe posteriorly (4:182), a 4 mm noncalcified nodule is redemonstrated. No new nodule, mass, infiltrate or groundglass opacity is seen. At the posterior right base, there is mild linear scar/subsegmental atelectasis, without associated focal airway obstruction. No small airway thickening is seen. The central airways appear patent. MEDIASTINUM: The thyroid is normal. There are shotty, nonpathologically enlarged mediastinal lymph nodes. There is no sizable mediastinal or hilar lymphadenopathy. No thoracic aortic aneurysm is seen. CORONARY ARTERY CALCIFICATION: Mild. PLEURA: There is no pleural effusion. No pleural mass or thickening. AXILLA: No lymphadenopathy. UPPER ABDOMEN: Unremarkable OSSEOUS STRUCTURES: There is multi-level marked lower cervical, thoracic and upper lumbar degenerative disc disease and spondylosis. No acute or aggressive osseous abnormality is seen. CT/CT lung screening IMPRESSION: There is a continued stable 4 mm nodule within the posterior segment of the right lower lobe. No new nodule, mass, infiltrate or groundglass opacity is seen. There is no generalized increase in peripheral interlobular septal markings. No aggressive osseous lesion is seen. ASSESSMENT: Lung-RADS category 2: Benign RECOMMENDATION: Routine annual low-dose CT screening in 12 months.
== END 2023-03-17 10:31 | disposition home or self-care (01) ==
LOC: HO.CT 10:30
PROVIDERS: PCP Internal Medicine; Visit Provider Physician Assistant Medical
DX: Z12.31 Encounter for screening mammogram for malignant neoplasm of breast (principal); Z12.2 Encounter for screening for malignant neoplasm of respiratory organs; Z87.891 Personal history of nicotine dependence
CPT/HCPCS: 71271; 77063; 77067

== ENCOUNTER → 2023-03-17 11:30 | Outpatient (BNV) | payer MEDICARE, SELFPAY | PROVIDERS: PCP Internal Medicine; Visit Provider Radiology Diagnostic Radiology | DX: Z12.31 Encounter for screening mammogram for malignant neoplasm of breast (principal) | CPT/HCPCS: 77063; 77067 ==

== ENCOUNTER 2023-03-31 11:32 | Outpatient (REF) | payer MEDICARE, SELFPAY ==
[2023-03-31 13:32] LABS: Estimated Average Glucose 117 mg/dL; Hemoglobin A1C 152.2586 umol/L; Hemoglobin A1c % 5.7 % (<6.0)
[2023-03-31 14:04] LABS: Alanine Aminotransferase 15 U/L (0-31); Anion Gap 14 (12-20); Aspartate Amino Transferase 25 U/L (5-31); Blood Urea Nitrogen 28 mg/dL (9-16); Carbon Dioxide 26 mmol/L (22-29); Chloride 103 mmol/L (96-108); Cholesterol 138 mg/dL (<200); Estimated Glomerular Filt Rate > 60; Glucose Fasting 106 mg/dL (60-99); HDL Cholesterol 49 mg/dL (>40); LDL Cholesterol Calculated 70 mg/dL (<100); Potassium 4.3 mmol/L (3.3-5.1); Sodium 139 mmol/L (135-145); Triglycerides 97 mg/dL (<150)
[2023-03-31 14:09] LABS: Free T4 (Free Thyroxine) 1.33 ng/dL (0.71-1.85); Thyroid Stimulating Hormone 1.19 uIU/mL (0.32-4.0); Vitamin D 25-OH Total 66.7 ng/mL (>30)
== END 2023-03-31 11:33 | disposition home or self-care (01) ==
LOC: HO.HMGCLDS 11:32
PROVIDERS: PCP Internal Medicine; Visit Provider Internal Medicine
DX: E03.9 Hypothyroidism, unspecified (principal); E78.5 Hyperlipidemia, unspecified; I10 Essential (primary) hypertension; E11.29 Type 2 diabetes mellitus with other diabetic kidney complication; R80.9 Proteinuria, unspecified
CPT/HCPCS: 36415; 80048; 80061; 82306; 83036; 84439; 84443; 84450; 84460

== ENCOUNTER 2023-04-04 11:47 | Outpatient (AMB) | payer MEDICARE, SELFPAY ==
--- NOTE | 2023-04-04 12:31 | A.OFFVIS_ITS ---
Intake Vital Signs 04/04/23 12:32 Height 5 ft 3 in Weight 176 lb BMI 31.2 BP 100/64 Blood Pressure Location Lt brachial Position Sitting Pulse 52 Pulse Source Pulse Oximeter Temp 97 F Temp Source Oral Intake Visit Reasons: AWV G0438 Intake Note: Pt is here today for her AWV Allergies iodine [Iodine] Allergy (Intermediate, Verified 04/04/23 13:27) HIVES,SWELLING, sneezing, SOB penicillin G Allergy (Intermediate, Verified 04/04/23 13:27) shortness of breath Sulfa (Sulfonamide Antibiotics) [SULFA (SULFONAMIDE ANTIBIOTICS)] Allergy (Intermediate, Verified 04/04/23 13:27) itching/SOB codeine Adverse Reaction (Severe, Verified 04/04/23 13:27) severe GI pain Medication List - Last Reconciled 04/04/23 by Vanda Landeros MD acetaminophen 650 mg (2 x 325 mg) PO Q6H PRN 30 days atorvastatin 40 mg PO BEDTIME blood sugar diagnostic (FreeStyle Lite Strips) check fasting glucose once a day blood-glucose meter (FreeStyle Lite Meter kit) check fasting glucose once a day cholecalciferol (vitamin D3) 50 mcg PO DAILY ibuprofen 600 mg PO Q8H PRN lancets (FreeStyle Lancets) check fasting glucose once a day levothyroxine 100 mcg PO QAM lisinopril 10 mg PO DAILY magnesium 400 mg PO DAILY metformin 500 mg PO DAILY HPI AWV G0438 HPI Details IAWV ? 68-year-old lady year old presents for her ? Annual Wellness Visit, initial visit.? She has hypo thyroidism currently stable controlled on levothyroxine, has shown currently on lisinopril, diabetes mellitus on metformin, and dyslipidemia currently doing well on atorvastatin. She takes an occasional magnesium oxide for leg cramps, which has been helping. She had a fa sting lipid panel done 03/31/2023 which showed normal findings as well as a fasting blood sugar done at the same time which showed fasting glucose at 106 mg/dL. Her latest hemoglobin A1c is normal at 5.7%. She had the normal mammogram done 03/17/2023, Cologuard ordered, declined getting another colonoscopy. She is overdue to get her bone density scan, last done 03/10/2021 which showed presence of osteopenia in her right femoral neck and right femur, no history of fractures. Patient would like to just have it repeated again together with her screening mammogram due next year. She is up-to-date with her yearly flu shots, received Prevnar 20 already and is up-to-date with her Tdap. To get her Shingrix vaccine and get her COVID booster as soon as available. ? Medical / Social History Reviewed? Past Medical History ?Yes . ? [place] of Care / Care Team list updated ?Yes . ? Surgical/Hospitalization History ?Yes . ? Current Medications (including OTC and supplements) ?Yes . ? Family History ?Yes . ? Tobacco Control form ?Yes . ? AUDIT-C (Alcohol use) form ?Yes . ? Illicit drug use in Social History ?Yes . ? Current diagnosis of depression? ?No ? Appropriate PHQ2/PHQ9 completed ?Yes . ? Data entered by ?Farm Operator and reviewed by provider ? Fall Risk ? Fall History? Have you had any falls with injury in the past year? ?No . ? Have you had two or more falls in the past year? ?No . ? Fall Risk Assessment: ?No falls in the past year . ? HRA filled out by the patient, reviewed by Provider and scanned. ? AWV ? Balance? Romberg ?Yes . ? Tandem walk ?Yes . ? Walk and Turn ?Yes . ? Rise from sit to stand ?Yes . ?Vision? Corrective lens ?none ? Vision screen ? Up-to-date, has an appointment already scheduled with the [facility] ?Hearing? Whisper test ?pass . ?Written Plan?Completed. Yes FOR[facility]LY [facility], [facility] Medical History (Updated 04/04/23 @ 13:37 by Vanda Landeros MD) Diabetes mellitus with microalbuminuria, without long-term current use of insulin Diabetes mellitus with hyperglycemia, without long-term current use of insulin Impaired fasting glucose Obesity (BMI 30-39.9) Personal history of nicotine dependence Osteopenia Back pain Positive FIT (fecal immunochemical test) Vitamin D deficiency Essential hypertension Acquired hypothyroidism Dyslipidemia Primary osteoarthritis of left hip Surgical History History of total left hip arthroplasty (~09/2020) Hx of laparoscopy History of wisdom tooth extraction History of tonsillectomy Family History Father Multiple myeloma Lung cancer Mother Afib S/P CABG x 3 HTN (hypertension) CVD (cardiovascular disease) Diabetes mellitus Maternal Grandmother Diabetes mellitus Maternal Grandfather No problems noted. Paternal Grandmother Breast cancer Paternal Grandfather Stomach cancer Social History Household Members: Spouse Housing: House Are you a primary rn palliative care to a significant other at home: No Do you presently have visiting nurse or other home services: No Patient Tobacco Use Status: Former Tobacco user Cigarettes Per Day: 30 Years Smoked: 35 e-Cigarette/Vaping Use: Never Used service: No Current occupational status: retired Current occupation: Right Handed Cognitive needs: No Hearing needs: No Vision needs: No Questionnaire Medicare Wellness Checkup What [age] What gender do you identify with?: female During the past 4 weeks, how much have you been bothered by emotional problems such as feeling anxious, depressed, irritable, sad or downhearted, and blue?: not at all During the past 4 weeks, has your physical & emotional health limited your social activities with family, friends, neighbors, or groups?: not at all During the past 4 weeks, how much bodily pain have you generally had?: very mild pain During the past 4 weeks, was someone available to help you if you needed & wanted help?: yes, as much as I wanted During the past 4 weeks, what was the hardest physical activity you could do for at least 2 minutes?: heavy Can you get to places out of walking distance without help? (For eg., can you travel alone on buses, taxis or drive your car?): Yes Can you go shopping for groceries or clothes without someone's help?: Yes Can you prepare your own meals?: Yes Can you do your housework without help?: Yes Because of any health problems, do you need the help of another person with your personal care needs such as eating, bathing, dressing or getting around the house?: No Can you handle your own money without help?: Yes During the past 4 weeks, how would you rate your health in general?: good During the past 4 weeks how have things been going for you?: very well; could hardly better Are you having difficulties driving your car?: no Do you always fasten your seat belt when you are in a car?: yes, usually During past 4 weeks, have you been bothered by the following: never: Falling or dizzy when standing up, Sexual problems?, Trouble eating well?, Teeth or denture problems?, Problems using the telephone? and Tiredness or fatigue? Have you fallen 2 or more times in the past year?: No Are you afraid of falling?: No Are you a smoker?: no During the past 4 weeks, how many drinks of wine, beer, or other alcoholic beverages did you have?: no alcohol at all Do you exercise for about 20 minutes 3 or more times a week?: yes, most of the time Have you been given information to help with the following?: no: Hazards in your house that might hurt you? and no: Keeping track of your medications? How often do you have trouble taking medicines the way you have been told to take them?: I always take medicine as prescribed How confident are you that you can control & manage most of your health problems?: very confident What is your race?: White Mini Mental State Exam (MMSE) Orientation What is the (year) (season) (date) (day) (month)?: year (2022), season (Summer), date (04/04/2023), day (Monday) and month (March) Where are we (state) (county) (town or city) (hospital) (floor)?: state ([place]), county ([place]), town or city ([place]) and hospital/clinic ([facility]) Score Score: 9 Activity of Daily Living Bathing - sponge bath, tub bath or shower: receives no assistance (gets in/out by self, if usual bathing means Dressing - getting clothes from closets & drawers, including inner/outer garments & fasteners.: gets clothes & gets completely dressed without help Toileting - going to the 'toilet room' for urine/bowel elimination & cleaning self/arranging clothes: goes to toilet room, cleans self, arranges clothes without help Transfer: moves in & out of bed and chair without help (may use support object) Continence: has occasional 'accidents' Feeding: feeds self without help Total Score: 0 Information obtained from: patient Using telephone: independent Traveling: independent Shopping: independent Preparing meals: independent Taking medicine: independent PHQ-9 Over the last 2 weeks, how often have you been bothered by any of the following problems? 1. Little interest or pleasure in doing things: not at all 2. Feeling down, depressed, or hopeless: not at all 3. Trouble falling or staying asleep, or sleeping too much: not at all 4. Feeling tired or having little energy: not at all 5. Poor appetite or overeating: not at all 6. Feeling bad about yourself - or that you are a failure or have let yourself or your family down: not at all 7. Trouble concentrating on things, such as reading the newspaper or watching television: not at all 8. Moving or speaking so slowly that other people could have noticed. Or the opposite - being so fidgety or restless that you have been moving around a lot more than usual: not at all 9. Thoughts that you would be better off or of hurting yourself in some way: not at all Total score: 0 Depression Screening Interpretation: Negative 20523 - PHQ-9 Billing: Yes Source: Developed by Drs. Christian Manning, Kera Dailey, Narendra Villarreal and colleagues, with an educational sukh from [employer]. Physical Exam Vital Signs: Last Vital Signs Temp 97 F 04/04/23 12:32 Pulse 52 04/04/23 12:32 BP 100/64 04/04/23 12:32 BMI result Body Mass Index 31.2 Results Reviewed Results Reviewed: RUN: 04/04/23 1303 PAGE 1 [facility] [address] [place] [id number] Die Out Worker: Frederick Thurman M.D. Specimen Inquiry Name: Debi Wyatt Carmelo Age/Sex: 67/F : 1955 Unit#: [id number] Attend Dr: Vanda Landeros MD Re03/31/23 Status: DEP REF Location: HO.HMGCLDS Disch: SPEC : [id number] PRANAY: 03/31/23114 STATUS: COMP REQ : [id number] RECD: 03/31/23-[address]: Vanda Landeros MD COMP: 03/31/23-133 ENTERED: 03/31/[address] [facility] [address]: ORDERED: Hgb A1c Test Result Flag Reference Site A1c % 5.7 <6.0 % Hemoglobin A1C Reference Range Adults: 4.8 - 6.0 % Non diabetic: < 6.0 % Goal: < 7.0 % Additional Action Suggested: > 8.0 % Note: Hemoglobin A1c results are invalid for patients with abnormal amounts of HbF. Blood transfusions may impact the HbA1c concentration in the patient sample. Est. Avg. Gluc 117 mg/dL eAG = Estimated average glucose which is %A1C expressed as average glucose, using the formula of the M1S-Flxsamc Average Glucose study (ADAG), Diabetes Care, Vol.31,#8, 2007 NTERED: 03/31/[address] [facility] [address]: ORDERED: Met Prof Fast, AST, ALT, Lipid Panel, Vitamin D 25-OH, Free T4, TSH Test Result Flag Reference Site Sodium 139 135-145 mmol/L Potassium 4.3 3.3-5.1 mmol/L CL 103 96-108 mmol/L CO2 26 22-29 mmol/L Gap 14 12-20 BUN 28 H 9-16 mg/dL Creat 0.85 0.5-1.4 mg/dL EGFR > 60 NOTE: For -[place] individuals, multiply the result by 1.210. Chronic Kidney Disease: Estimated GFR < 60 mL/min/1.73m2 Severe Kidney Disease: Estimated GFR < 15 mL/min/1.73m2 FBS 106 H 60-99 mg/dL A fasting glucose from 100-125 mg/dl is considered impaired (pre-diabetes). CA 10.0 8.4-10.2 mg/dL AST (GOT) 25 5-31 U/L ALT (GPT) 15 0-31 U/L Triglyceride 97 <150 mg/dL Desirable Triglyceride: less than 150 mg/dL Borderline High Triglyceride 150-199 mg/dL High Triglyceride: 200-499 mg/dL Very High Triglyceride: greater than or equal to 5OO mg/dL Cholesterol 138 <200 mg/dL Desirable Cholesterol: less than 200 mg/dL Borderline High Cholesterol: 200-239 mg/dL High Cholesterol: greater than 239 mg/dL LDL Calculated 70 <100 mg/dL Desirable LDL: less than 100 mg/dL Near Optimal/Above Optimal LDL: 110-129 mg/dL Borderline High LDL: 130-159 mg/dL High LDL: 160-189 mg/dL Very High LDL: greater than or equal to 190 mg/dL HDL 49 >40 mg/dL Desirable HDL: greater than 40 mg/dL Note: This HDL assay may give artificially low results in patients with liver disease. Vit D 25-OH Tot 66.7 >30 ng/mL Health Based Reference Values* < 20 ng/mL Deficient 20-30 ng/mL Insufficient > 30 ng/mL Sufficient *Kalin WILLOUGHBY. N Engl J Med. 2007;357:266-280 Care must be taken in interpreting Vitamin D results from different laboratories and methodologies. Published data demonstrated that results from patients undergoing hemodialysis may show a negative bias when tested with various automated 25-OH vitamin D assays when compared to LC-MS/MS. When testing samples from patients whose predominant form of Vitamin D is Vitamin D2, such as patients receiving Vitamin D2 supplementation, results that are subtherapeutic should be confirmed with another method such as LC-MS/MS. Free T4 1.33 0.71-1.85 ng/dL TSH 3rd Gen. 1.19 0.32-4.0 uIU/mL TSH 3rd Generation ([facility]) Assessment & Plan Assessment & Plan (1) Encounter for initial annual wellness visit (AWV) in Medicare patient: Code(s): Z00.00 - Encounter for general adult medical examination without abnormal findings Plan: Medical wellness checklist reviewed, discussed with patient and updated. Copy given (2) Diabetes mellitus with microalbuminuria, without long-term current use of insulin: Code(s): E11.29 - Type 2 diabetes mellitus with other diabetic kidney complication; R80.9 - Proteinuria, unspecified Plan: Recent lab results reviewed with patient, with sugar and hemoglobin A1c stable and at goal, continue to check fasting blood sugar at home, maintain log and bring to next appointment for review. Reinforced diabetic diet and regular exercise with patient. Counseled regarding importance of yearly diabetes retinopathy screening. Patient advised to inspect feet daily, for any signs of injury, callus or infection. Compliance with diet and regular exercise again stressed. Blood pressure goal is less than 130/80, goal LDL is less than 100 and goal hemoglobin A1c is less than 7% follow-up appointment made in--6-months, after fasting labs done. (3) Acquired hypothyroidism: Code(s): E03.9 - Hypothyroidism, unspecified Plan: Latest I levels are within normal limits, cutting 10 U with current dose of levothyroxine 100 mcg daily. (4) Dyslipidemia: Code(s): E78.5 - Hyperlipidemia, unspecified Plan: Reviewed recent fasting lipid profile with patient with levels within normal limits. Continue with atorvastatin 40 mg at bedtime , in addition to adherence to low-cholesterol diet and regular exercise, at least 30 minutes 3 to 4 times a week. Advised patient to make healthy food choices, eat more fruits, vegetables, whole grains, wild caught fish and low-fat dairy. Limit amount of meat and fried or fatty food products, as well as processed foods and fast foods. Follow-up scheduled with repeat fasting lipid panel in 6 months. (5) Essential hypertension: Code(s): I10 - Essential (primary) hypertension Plan: Blood pressure goal is less than 130/80. Continue with current medication. Reinforced importance of following a low sodium diet, getting regular exercise, and lowering stress levels. (6) Osteopenia: Comment: (Bone Dexa = T-score -2.0 femur - 03/10/21) Code(s): M85.80 - Other specified disorders of bone density and structure, unspecified site Qualifiers: Laterality: right Osteopenia location: femoral neck Qualified Code(s): M85.851 - Other specified disorders of bone density and structure, right thigh Plan: Continue staying active, continue with weight loss to achieve ideal body weight, continue with adhering to healthy eating habits. (7) Advanced directives, counseling/discussion: Code(s): Z71.89 - Other specified counseling Plan: Initiated the conversation about Advanced Directives. Advanced Directives help patients prepare for current and future decisions about their medical treatment and place of care. Discussed with patient that it is a process where a patients current condition and prognosis are reviewed, their wishes for information regarding their illness are elicited, and likely medical dilemmas are presented and options discussed. MOLST form completed today. The form can be amended as needed, reviewed yearly and make changes as needed Orders: Orders Magnesium 09/22/23 E03.9 - Hypothyroidism, unspecified, E11.29 - Type 2 diabetes mellitus with other diabetic kidney complication, E78.5 - Hyperlipidemia, unspecified, I10 - Essential (primary) hypertension, K86.2 - Cyst of pancreas, M85.80 - Other specified disorders of bone density and structure, unspecified site, R80.9 - Proteinuria, unspecified, Z00.00 - Encounter for general adult medical examination without abnormal findings, Z71.89 - Other specified counseling Lipid Panel 09/22/23 E03.9 - Hypothyroidism, unspecified, E11.29 - Type 2 diabetes mellitus with other diabetic kidney complication, E78.5 - Hyperlipid emia, unspecified, I10 - Essential (primary) hypertension, K86.2 - Cyst of pancreas, M85.80 - Other specified disorders of bone density and structure, unspecified site, R80.9 - Proteinuria, unspecified, Z00.00 - Encounter for general adult medical examination without abnormal findings, Z71.89 - Other specified counseling Thyroid Stimulating Hormone 09/22/23 E03.9 - Hypothyroidism, unspecified, E11.29 - Type 2 diabetes mellitus with other diabetic kidney complication, E78.5 - Hyperlipidemia, unspecified, I10 - Essential (primary) hypertension, K86.2 - Cyst of pancreas, M85.80 - Other specified disorders of bone density and structure, unspecified site, R80.9 - Proteinuria, unspecified, Z00.00 - Encounter for general adult medical examination without abnormal findings, Z71.89 - Other specified counseling Comprehensive [place]. Panel Fast 09/22/23 E03.9 - Hypothyroidism, unspecified, E11.29 - Type 2 diabetes mellitus with other diabetic kidney complication, E78.5 - Hyperlipidemia, unspecified, I10 - Essential (primary) hypertension, K86.2 - Cyst of pancreas, M85.80 - Other specified disorders of bone density and structure, unspecified site, R80.9 - Proteinuria, unspecified, Z00.00 - Encounter for general adult medical examination without abnormal findings, Z71.89 - Other specified counseling Microalbumin, Random (w Creat) 09/22/23 E03.9 - Hypothyroidism, unspecified, E11.29 - Type 2 diabetes mellitus with other diabetic kidney complication, E78.5 - Hyperlipidemia, unspecified, I10 - Essential (primary) hypertension, K86.2 - Cyst of pancreas, M85.80 - Other specified disorders of bone density and structure, unspecified site, R80.9 - Proteinuria, unspecified, Z00.00 - Encounter for general adult medical examination without abnormal findings, Z71.89 - Other specified counseling Hemoglobin A1c 09/22/23 E03.9 - Hypothyroidism, unspecified, E11.29 - Type 2 diabetes mellitus with other diabetic kidney complication, E78.5 - Hyperlipidemia, unspecified, I10 - Essential (primary) hypertension, K86.2 - Cyst of pancreas, M85.80 - Other specified disorders of bone density and structure, unspecified site, R80.9 - Proteinuria, unspecified, Z00.00 - Encounter for general adult medical examination without abnormal findings, Z71.89 - Other specified counseling Free T4 (Free Thyroxine) 09/22/23 E03.9 - Hypothyroidism, unspecified, E11.29 - Type 2 diabetes mellitus with other diabetic kidney complication, E78.5 - Hyperlipidemia, unspecified, I10 - Essential (primary) hypertension, K86.2 - Cyst of pancreas, M85.80 - Other specified disorders of bone density and structure, unspecified site, R80.9 - Proteinuria, unspecified, Z00.00 - Encounter for general adult medical examination without abnormal findings, Z71.89 - Other specified counseling Vitamin D 25-OH Total 09/22/23 E03.9 - Hypothyroidism, unspecified, E11.29 - Type 2 diabetes mellitus with other diabetic kidney complication, E78.5 - Hyperlipidemia, unspecified, I10 - Essential (primary) hypertension, K86.2 - Cyst of pancreas, M85.80 - Other specified disorders of bone density and structure, unspecified site, R80.9 - Proteinuria, unspecified, Z00.00 - Encounter for general adult medical examination without abnormal findings, Z71.89 - Other specified counseling Referrals Cologuard Test Z12.11 - Encounter for screening for malignant neoplasm of colon, Z12.12 - Encounter for screening for malignant neoplasm of rectum Quality Reporting (2019) Depression/Bipolar (159/160/161/177) PHQ-9: Total score: 0 Coding Level of Care Code Medicare First (G0438) Diagnoses Encounter for initial annual wellness visit (AWV) in Medicare patient Z00.00 Diabetes mellitus with microalbuminuria, without long-term current use of insulin E11.29; R80.9 Acquired hypothyroidism E03.9 Dyslipidemia E78.5 Essential hypertension I10 Osteopenia of neck of right femur M85.851 Laterality: right Osteopenia location: femoral neck Advanced directives, counseling/discussion Z71.89 Advance Care Planning Advance Care Planning discussion: Completed/Scanned Date of discussion: 04/04/23 Who was present: Patient
[2023-04-04 12:32] VITALS: BP 100/64; PULSE 52; TEMP 36.1; BMI 31.2
== END 2023-04-04 14:32 | disposition home or self-care (01) ==
PROVIDERS: Visit Provider Internal Medicine
DX: Z00.00 Encounter for general adult medical examination without abnormal findings (principal); E11.29 Type 2 diabetes mellitus with other diabetic kidney complication; I10 Essential (primary) hypertension; E03.9 Hypothyroidism, unspecified; R80.9 Proteinuria, unspecified; E78.5 Hyperlipidemia, unspecified; M85.851 Other specified disorders of bone density and structure, right thigh
CPT/HCPCS: G0438

== ENCOUNTER 2023-09-29 10:01 | Outpatient (REF) | payer MEDICARE, SELFPAY ==
[2023-09-29 14:04] LABS: Estimated Average Glucose 114 mg/dL; Hemoglobin A1c % 5.6 % (<6.0)
[2023-09-29 14:39] LABS: Creatinine Urine 173.06 mg/dL; Microalbum/Creatinine Ratio Ur 14.4 ug/mg cr (<30)
[2023-09-29 14:50] LABS: Alanine Aminotransferase 15 U/L (0-31); Albumin Level 4.3 g/dL (3.5-5.0); Alkaline Phosphatase 98 U/L (39-117); Anion Gap 15 (12-20); Aspartate Amino Transferase 19 U/L (5-31); Bilirubin Total 0.5 mg/dL (0.0-1.0); Blood Urea Nitrogen 36 mg/dL (9-16); Calcium 9.8 mg/dL (8.4-10.2); Carbon Dioxide 29 mmol/L (22-29); Chloride 103 mmol/L (96-108); Cholesterol 167 mg/dL (<200); Estimated Glomerular Filt Rate > 60; Glucose Fasting 99 mg/dL (60-99); HDL Cholesterol 76 mg/dL (>40); LDL Cholesterol Calculated 80 mg/dL (<100); Magnesium 2.2 mg/dL (1.6-2.6); Potassium 4.3 mmol/L (3.3-5.1); Sodium 143 mmol/L (135-145); Total Protein 7.4 g/dL (6.5-8.0); Triglycerides 58 mg/dL (<150)
[2023-09-29 15:05] LABS: Free T4 (Free Thyroxine) 1.25 ng/dL (0.71-1.85); Thyroid Stimulating Hormone 2.37 uIU/mL (0.32-4.0); Vitamin D 25-OH Total 50.8 ng/mL (>30)
== END 2023-09-29 10:02 | disposition home or self-care (01) ==
LOC: HO.HMGCLDS 10:01
PROVIDERS: PCP Internal Medicine; Visit Provider Internal Medicine
DX: Z00.00 Encounter for general adult medical examination without abnormal findings (principal); E11.29 Type 2 diabetes mellitus with other diabetic kidney complication; R80.9 Proteinuria, unspecified; E03.9 Hypothyroidism, unspecified; E78.5 Hyperlipidemia, unspecified; I10 Essential (primary) hypertension; K86.2 Cyst of pancreas; M85.80 Other specified disorders of bone density and structure, unspecified site; Z71.89 Other specified counseling
CPT/HCPCS: 36415; 80053; 80061; 82043; 82306; 82570; 83036; 83735; 84439; 84443

== ENCOUNTER 2023-10-02 10:25 | Outpatient (AMB) | payer MEDICARE, SELFPAY ==
[2023-10-02 10:31] VITALS: BP 128/72; PULSE 60; O2SAT 99; BMI 29.9
--- NOTE | 2023-10-02 10:31 | MHC.PC.OV ---
Vital Signs 10/02/23 10:31 Height 5 ft 3 in Weight 169 lb BMI 29.9 BP 128/72 Blood Pressure Location Rt brachial Position Sitting Pulse 60 Pulse Source Pulse Oximeter Pulse Oximetry (%) 99 Oxygen Delivery Method Room Air Intake Visit Reasons: 6 month follow up/OK per Dr. Landeros Intake Note: Pt is here today for her 6 months f/u Allergies iodine [Iodine] Allergy (Intermediate, Verified 10/02/23 11:07) HIVES,SWELLING, sneezing, SOB penicillin G Allergy (Intermediate, Verified 10/02/23 11:07) shortness of breath Sulfa (Sulfonamide Antibiotics) [SULFA (SULFONAMIDE ANTIBIOTICS)] Allergy (Intermediate, Verified 10/02/23 11:07) itching/SOB codeine Adverse Reaction (Severe, Verified 10/02/23 11:07) severe GI pain Medication List - Last Reconciled 10/02/23 by Vanda Landeros MD acetaminophen 650 mg (2 x 325 mg) PO Q6H PRN 30 days atorvastatin 40 mg PO BEDTIME blood sugar diagnostic (FreeStyle Lite Strips) check fasting glucose once a day blood-glucose meter (FreeStyle Lite Meter kit) check fasting glucose once a day cholecalciferol (vitamin D3) 50 mcg PO DAILY ibuprofen 600 mg PO Q8H PRN lancets (FreeStyle Lancets) check fasting glucose once a day levothyroxine 100 mcg PO QAM lisinopril 10 mg PO DAILY magnesium 400 mg PO DAILY metformin 500 mg PO DAILY Tobacco use date assessed: 10/02/23 Fall risk assessment: No Falls in past year Last assessed Fall Risk: 10/02/23 Dental Screening Dental Screen Date: 10/02/23 Did you have a dental visit in the last 12 months?: Yes Did you have a dental problem in the last 6 months where you did not have access to dental care?: No Was dental information given to patient?: Patient has dentist HPI 6 month follow up/OK per Dr. Landeros HPI Details Lady with diabetes mellitus, hyperlipidemia, hypertension, and hypothyroidism, here today for her follow-up. She has been compliant with her diet and exercise, has lost approximately 7 lb in the last 6 months, and has been feeling much better, having more energy. Her diabetes mellitus is well controlled with hemoglobin A1c now at 5.6%, fasting lipids are within normal limits, and urine microalbumin is now within normal limits as well. Blood pressure stable controlled on lisinopril. Recent thyroid levels are also within normal limits. She is up-to-date with her diabetes retinopathy screening, goes to [facility] eye [facility] in [place].. She had a positive Cologuard test, would like a referral to Dr Leigh. [facility] Medical History (Updated 10/02/23 @ 11:25 by Vanda Landeros MD) Positive colorectal cancer screening using Cologuard test Type 2 diabetes mellitus without complication, without long-term current use of insulin Impaired fasting glucose Obesity (BMI 30-39.9) Personal history of nicotine dependence Osteopenia Back pain Vitamin D deficiency Essential hypertension Acquired hypothyroidism Dyslipidemia Primary osteoarthritis of left hip Surgical History History of total left hip arthroplasty (~09/2020) Hx of laparoscopy History of wisdom tooth extraction History of tonsillectomy Family History Father Multiple myeloma Lung cancer Mother Afib S/P CABG x 3 HTN (hypertension) CVD (cardiovascular disease) Diabetes mellitus Maternal Grandmother Diabetes mellitus Maternal Grandfather No problems noted. Paternal Grandmother Breast cancer Paternal Grandfather Stomach cancer Social History Household Members: Spouse Housing: House Are you a primary manager of care to a significant other at home: No Do you presently have visiting nurse or other home services: No Comment: sleeping Patient Tobacco Use Status: Former Tobacco user Cigarettes Per Day: 30 Years Smoked: 35 e-Cigarette/Vaping Use: Never Used service: No Current occupational status: retired Current occupation: Right Handed Cognitive needs: No Hearing needs: No Vision needs: No Questionnaire PHQ-9 Over the last 2 weeks, how often have you been bothered by any of the following problems? 1. Little interest or pleasure in doing things: not at all 2. Feeling down, depressed, or hopeless: not at all 3. Trouble falling or staying asleep, or sleeping too much: not at all 4. Feeling tired or having little energy: not at all 5. Poor appetite or overeating: not at all 6. Feeling bad about yourself - or that you are a failure or have let yourself or your family down: not at all 7. Trouble concentrating on things, such as reading the newspaper or watching television: not at all 8. Moving or speaking so slowly that other people could have noticed. Or the opposite - being so fidgety or restless that you have been moving around a lot more than usual: not at all 9. Thoughts that you would be better off or of hurting yourself in some way: not at all Total score: 0 Depression Screening Interpretation: Negative Depression Screening Done: Yes 76333 - PHQ-9 Billing: Yes Source: Developed by Drs. Christian Manning, Kera Dailey, Narendra Villarreal and colleagues, with an educational sukh from [employer]. Thrive Questionnaire Date Thrive assessed: 10/02/23 I am a: Patient What is your living situation today?: I have a steady place to live Within the past 12 months, did the food you bought not last and you didn't have the money to get more?: Never true Within the past 12 months, did you worry whether your food would run out before you got money to buy more?: Never true Do you have trouble paying for medicines?: No Do you have trouble getting transportation to medical appointments?: No Do you have trouble paying your heating and electricity bill?: No Do you have trouble taking care of your child, family member or friend?: No Do you have trouble with day-to-day activities such as bathing, preparing meals, shopping, managing finances, etc.?: No Are you currently unemployed and looking for a job?: No Are you interested in more education?: No THRIVE Score: 0 AUDIT C Alcohol Use Questionnaire (AUDIT-C) 1. How often do you have a drink containing alcohol?: Never 2. How many drinks containing alcohol do you have on a typical day when you are drinking?: 1 or 2 3. How often do you have six or more drinks on one occasion?: Never Total Score: 0 SMOOTH-7 AMB Questionnaire SMOOTH-7 Date SMOOTH - 7 assessed: 10/02/23 Feeling nervous, anxious, or on edge: 0 = Not at all Not being able to stop or control worryin = Not at all Worrying too much about different things: 0 = Not at all Trouble relaxin = Not at all Being so restless that it is hard to sit still: 0 = Not at all Becoming easily annoyed or irritable: 0 = Not at all Feeling afraid as if something awful might happen: 0 = Not at all Total SMOOTH-7 score (0-4 normal; 5-9 mild; 10-14 moderate; 15-21 severe): 0 Source: Developed by Drs. Christian Manning, Kera Dailey, Narendra Villarreal and colleagues, with an educational sukh from [employer]. SMOOTH-7 Assessment Billing SMOOTH-7 Assessment Tool: SMOOTH-7 Assessment 58028 Review of Systems Const Denies body aches, Denies fatigue, Denies fever(s), Denies headache(s), Denies weakness and Reports weight loss (Through diet and exercise) Eyes Details: Up-to-date with her eye exam go to the [facility] eye [facility] in self has Denies change in vision ENT Denies dizziness, Denies headache(s) and Denies nasal congestion Card Denies chest pain, Denies lightheadedness, Denies palpitations and Denies dyspnea Resp Denies chest congestion, Denies cough, Denies dyspnea and Denies wheezing GI Denies abdominal pain, Denies change in bowel habits and Denies heartburn Denies urinary frequency, Denies dysuria and Denies urinary urgency Musc Reports arthralgias Skin/Breast Denies lesions and Denies rash Neuro Denies dizziness, Denies headache(s) and Denies weakness Psych Reports no additional complaints Endo Denies fatigue, Denies polydipsia, Denies polyuria and Denies palpitations Carlos/Lymph Reports no additional complaints Aller/Immun Denies seasonal rhinorrhea and Denies wheezing Physical exam (Primary Care) Vital Signs: Last Vital Signs Pulse 60 10/02/23 10:31 BP 128/72 10/02/23 10:31 Pulse Ox 99 10/02/23 10:31 Oxygen Delivery Method Room Air 10/02/23 10:31 BMI result Body Mass Index 29.9 Tobacco/Smoking Status: Tobacco use Status Tobacco use date assessed 10/02/23 10/02/23 10:34 Patient Tobacco Use Status Former Tobacco user 10/02/23 10:34 e-Cigarette/Vaping Use Never Used 10/02/23 10:34 PHQ-9: PHQ-9 Score PHQ-9: Total score 0 10/02/23 11:10 Depression Screening Interpretation: Negative Thrive Assessment: Date of Thrive Assessment Date Thrive assessed 10/02/23 10/02/23 10:47 Const General: no acute distress Orientation/consciousness: patient oriented x3 [facility] General nose exam: Normal external nose present Face and sinus: Yes face symmetric Mouth: Normal oral and palatal mucosa present and moist mucous membranes Eyes General: appearance normal, both eyes and all related structures Neck Neck: Yes full ROM, Yes no lymphadenopathy and Yes supple Resp Effort & Inspection: normal respiratory effort and able to speak in complete sentences Auscultation: clear to auscultation bilaterally Cardio Rate: regular rate Rhythm: regular rhythm Heart sounds: S1 normal heart sound present and S2 normal heart sound present GI Palpation (GI): Soft to palpation, nontender, no guarding and no masses Auscultation: normal bowel sounds Back/Spine/Pelvis Cervical Spine: cervical ROM normal Thoracic/Lumbar Spine: thoracic and lumbar spine normal to inspection Neuro General: patient oriented x3, tone normal, moves all extremities, Normal light touch and pain sensation and no focal motor deficits Extrem General: Yes full ROM, Yes no joint enlargement, Yes no pedal edema and Yes no calf tenderness Psych Appearance: grossly normal and well kempt Mental Status: mental status grossly normal Speech and movement: Normal speech and movement present Affect: normal affect Attitude: cooperative Results Reviewed Results Reviewed: Laboratory Tests 09/29/23 10:06 Estimat Average Glucose 114 Hemoglobin A1c % 5.6 me: Debi Wyatt Age/Sex: 68/F : 1955 Unit#: [id number] Attend Dr: Vanda Landeros MD Re09/29/23 Status: DEP REF Location: [facility] Disch: SPEC : [id number] PRANAY: 09/29/23-1201 STATUS: COMP REQ : [id number] RECD: 09/29/23-[address]: Vanda Landeros MD COMP: 09/29/23-1505 ENTERED: 09/29/23-[address]: ORDERED: CMP Fast, MG, Lipid Panel, Vitamin D 25-OH, Free T4, TSH Test Result Flag Reference Sodium 143 135-145 mmol/L Potassium 4.3 3.3-5.1 mmol/L CL 103 96-108 mmol/L CO2 29 22-29 mmol/L Gap 15 12-20 BUN 36 H 9-16 mg/dL Creat 0.76 0.5-1.4 mg/dL EGFR > 60 NOTE: For -Prydeinig individuals, multiply the result by 1.210. Chronic Kidney Disease: Estimated GFR < 60 mL/min/1.73m2 Severe Kidney Disease: Estimated GFR < 15 mL/min/1.73m2 FBS 99 60-99 mg/dL CA 9.8 8.4-10.2 mg/dL Magnesium 2.2 1.6-2.6 mg/dL Total Bili 0.5 0.0-1.0 mg/dL AST (GOT) 19 5-31 U/L ALT (GPT) 15 0-31 U/L Protein, Total 7.4 6.5-8.0 g/dL Alb 4.3 3.5-5.0 g/dL Triglyceride 58 <150 mg/dL Desirable Triglyceride: less than 150 mg/dL Borderline High Triglyceride 150-199 mg/dL High Triglyceride: 200-499 mg/dL Very High Triglyceride: greater than or equal to 5OO mg/dL Cholesterol 167 <200 mg/dL Desirable Cholesterol: less than 200 mg/dL Borderline High Cholesterol: 200-239 mg/dL High Cholesterol: greater than 239 mg/dL LDL Calculated 80 <100 mg/dL Desirable LDL: less than 100 mg/dL Near Optimal/Above Optimal LDL: 110-129 mg/dL Borderline High LDL: 130-159 mg/dL High LDL: 160-189 mg/dL Very High LDL: greater than or equal to 190 mg/dL HDL 76 >40 mg/dL Desirable HDL: greater than 40 mg/dL Note: This HDL assay may give artificially low results in patients with liver disease. Alk Phos 98 39-117 U/L Vit D 25-OH Tot 50.8 >30 ng/mL Health Based Reference Values* < 20 ng/mL Deficient 20-30 ng/mL Insufficient > 30 ng/mL Sufficient *Kalin WILLOUGHBY. N Engl J Med. 2007;[id number]:[id number] Care must be taken in interpreting Vitamin D results from different laboratories and methodologies. Published data demonstrated that results from patients undergoing hemodialysis may show a negative bias when tested with various automated 25-OH vitamin D assays when compared to LC-MS/MS. When testing samples from patients whose predominant form of Vitamin D is Vitamin D2, such as patients receiving Vitamin D2 supplementation, results that are subtherapeutic should be confirmed with another method such as LC-MS/MS. Free T4 1.25 0.71-1.85 ng/dL TSH 3rd Gen. 2.37 0.32-4.0 uIU/mL TSH 3rd Generation ([facility]) Assessment and Plan Assessment & Plan (1) Essential hypertension: Code(s): I10 - Essential (primary) hypertension Plan: Blood pressure at goal of less than 130/80. Continue with lisinopril 10 mg daily. Reinforced importance of following a low sodium diet, getting regular exercise, and lowering stress levels. (2) Dyslipidemia: Code(s): E78.5 - Hyperlipidemia, unspecified Plan: Reviewed recent fasting lipid profile with patient with levels within normal . Continue with atorvastatin 40 mg daily , in addition to adherence to low-cholesterol diet and regular exercise, at least 30 minutes 3 to 4 times a week. Advised patient to make healthy food choices, eat more fruits, vegetables, whole grains, wild caught fish and low-fat dairy. Limit amount of meat and fried or fatty food products, as well as processed foods and fast foods. Follow-up scheduled with repeat fasting lipid panel in 6 months. (3) Acquired hypothyroidism: Code(s): E03.9 - Hypothyroidism, unspecified Plan: Thyroid levels are within normal limits, continued on current dose of levothyroxine 100 mcg daily in a.m. (4) Type 2 diabetes mellitus without complication, without long-term current use of insulin: Code(s): E11.9 - Type 2 diabetes mellitus without complications Plan: Recent lab results reviewed with patient, with sugar and hemoglobin A1c stable and at goal. Continue metformin 500 mg 1 tablet daily, continue to check fasting blood sugar at home, maintain log and bring to next appointment for review. Reinforced diabetic diet and regular exercise with patient. Up-to-date with her yearly diabetes retinopathy screening. Patient advised to inspect feet daily, for any signs of injury, callus or infection. Blood pressure goal is less than 130/80, goal LDL is less than 100 and goal hemoglobin A1c is less than 7% follow-up appointment made in-6--months, after fasting labs done. (5) Positive colorectal cancer screening using Cologuard test: Code(s): R19.5 - Other fecal abnormalities Plan: Patient requesting referral to Dr. Margarita Leigh for diagnostic colonoscopy Orders: Orders Lipid Panel 03/24/24 E03.9 - Hypothyroidism, unspecified, E11.9 - Type 2 diabetes mellitus without complications, E78.5 - Hyperlipidemia, unspecified, I10 - Essential (primary) hypertension Hemoglobin A1c 03/24/24 E03.9 - Hypothyroidism, unspecified, E11.9 - Type 2 diabetes mellitus without complications, E78.5 - Hyperlipidemia, unspecified, I10 - Essential (primary) hypertension Aspartate Amino Transferase 03/24/24 E03.9 - Hypothyroidism, unspecified, E11.9 - Type 2 diabetes mellitus without complications, E78.5 - Hyperlipidemia, unspecified, I10 - Essential (primary) hypertension Free T4 (Free Thyroxine) 03/24/24 E03.9 - Hypothyroidism, unspecified, E11.9 - Type 2 diabetes mellitus without complications, E78.5 - Hyperlipidemia, unspecified, I10 - Essential (primary) hypertension Alanine Aminotransferase 03/24/24 E03.9 - Hypothyroidism, unspecified, E11.9 - Type 2 diabetes mellitus without complications, E78.5 - Hyperlipidemia, unspecified, I10 - Essential (primary) hypertension Basic Metabolic Panel Fasting 03/24/24 E03.9 - Hypothyroidism, unspecified, E11.9 - Type 2 diabetes mellitus without complications, E78.5 - Hyperlipidemia, unspecified, I10 - Essential (primary) hypertension Thyroid Stimulating Hormone 03/24/24 E03.9 - Hypothyroidism, unspecified, E11.9 - Type 2 diabetes mellitus without complications, E78.5 - Hyperlipidemia, unspecified, I10 - Essential (primary) hypertension Referrals Gastroenterology Referral R19.5 - Other fecal abnormalities Coding Level of Care Code Est Pt Level 4 (04603) Diagnoses Essential hypertension I10 Dyslipidemia E78.5 Acquired hypothyroidism E03.9 Type 2 diabetes mellitus without complication, without long-term current use of insulin E11.9 Positive colorectal cancer screening using Cologuard test R19.5 Additional Codes SMOOTH-7 Assessment Billing - SMOOTH-7 Assessment Tool: SMOOTH-7 Assessment 44023 ([id number])
== END 2023-10-02 12:37 | disposition home or self-care (01) ==
LOC: HO.HMGC 10:25
PROVIDERS: PCP Internal Medicine; Visit Provider Internal Medicine
DX: E11.69 Type 2 diabetes mellitus with other specified complication (principal); I10 Essential (primary) hypertension; E78.5 Hyperlipidemia, unspecified; E03.9 Hypothyroidism, unspecified; R19.5 Other fecal abnormalities
CPT/HCPCS: 99214

== ENCOUNTER 2024-04-11 10:51 | Outpatient (REF) | payer MEDICARE, SELFPAY ==
[2024-04-11 13:49] LABS: Estimated Average Glucose 114 mg/dL; Hemoglobin A1c % 5.6 % (<6.0)
[2024-04-11 13:56] LABS: Alanine Aminotransferase 16 U/L (0-31); Anion Gap 10 (12-20); Aspartate Amino Transferase 18 U/L (5-31); Blood Urea Nitrogen 33 mg/dL (9-16); Calcium 10.1 mg/dL (8.4-10.2); Carbon Dioxide 31 mmol/L (22-29); Chloride 104 mmol/L (96-108); Cholesterol 160 mg/dL (<200); Estimated Glomerular Filt Rate 59; Glucose Fasting 112 mg/dL (60-99); HDL Cholesterol 61 mg/dL (>40); LDL Cholesterol Calculated 80 mg/dL (<100); Potassium 4.8 mmol/L (3.3-5.1); Sodium 140 mmol/L (135-145); Triglycerides 98 mg/dL (<150)
[2024-04-11 14:20] LABS: Free T4 (Free Thyroxine) 1.29 ng/dL (0.71-1.85)
== END 2024-04-11 10:52 | disposition home or self-care (01) ==
LOC: HO.HMGCLDS 10:51
PROVIDERS: PCP Internal Medicine; Visit Provider Internal Medicine
DX: E11.9 Type 2 diabetes mellitus without complications (principal); E03.9 Hypothyroidism, unspecified; E78.5 Hyperlipidemia, unspecified; I10 Essential (primary) hypertension
CPT/HCPCS: 36415; 80048; 80061; 83036; 84439; 84443; 84450; 84460

== ENCOUNTER 2024-04-16 09:15 | Outpatient (AMB) | payer MEDICARE, SELFPAY ==
--- NOTE | 2024-04-16 09:21 | AM.OFFVISMDC ---
Intake Vital Signs 04/16/24 09:42 Height 5 ft 3 in Weight 171 lb BMI 30.3 BP 120/64 Blood Pressure Location Lt brachial Position Sitting Pulse 52 Pulse Source Pulse Oximeter Pulse Oximetry (%) 98 Oxygen Delivery Method Room Air Intake Visit Reasons: SWV G0439 Intake Note: Pt is here today for her SWV: Last mammogram 03/17/23, bone density scan 03/10/21, colonoscopy 01/22/24 Allergies iodine [Iodine] Allergy (Intermediate, Verified 04/16/24 10:00) HIVES,SWELLING, sneezing, SOB penicillin G Allergy (Intermediate, Verified 04/16/24 10:00) shortness of breath Sulfa (Sulfonamide Antibiotics) [SULFA (SULFONAMIDE ANTIBIOTICS)] Allergy (Intermediate, Verified 04/16/24 10:00) itching/SOB codeine Adverse Reaction (Severe, Verified 04/16/24 10:00) severe GI pain Medication List - Last Reconciled 04/16/24 by Vanda Landeros MD acetaminophen 650 mg (2 x 325 mg) PO Q6H PRN 30 days atorvastatin 40 mg PO BEDTIME blood sugar diagnostic (FreeStyle Lite Strips) check fasting glucose once a day blood-glucose meter (FreeStyle Lite Meter kit) check fasting glucose once a day cholecalciferol (vitamin D3) 50 mcg PO DAILY ibuprofen 600 mg PO Q8H PRN lancets (FreeStyle Lancets) check fasting glucose once a day levothyroxine 100 mcg PO QAM lisinopril 10 mg PO DAILY magnesium 400 mg PO DAILY metformin 500 mg PO DAILY HPI SWV G0439 HPI Details 69year-old lady y ear old presents for her ? Annual Wellness Visit, vega bsequent visit.? S he has hypothyroid ism currently stab le controlled on l evothyroxine, hasH ypertension curre ntly on lisinopril , diabetes mellitu s on metformin, an d dyslipidemia cur rently doing well on atorvastatin. She had a fastin g lipid panel and lipids levels done 04/11/2024, which showed normal fin dings as well as a fasting blood sug ar done at the [facility] time which showe d fasting glucose at 112 mg/dL. Her latest hemoglobin A1c is normal at 5.6%. She had the normal bhargav mogram done 023, She is overd ue to get her bone density scan, las t done 03/10/2021 w hich showed presen ce of osteopenia i n her right femora l neck and right f emur, no history o f fractures. Neeru noyola would like to just have it repeeleazar rivas again together with her screenin g mammogram due ne xt year. Meme condon had her screenin g colonoscopy done by Dr. Leigh 01/22/2024 , with a tu bular adenoma poly p removed, repeat due again in 2028. She is up- to-date with her Prevnar 20, Tdap, shingles vaccine, and is scheduled to get her flu ayaz t next week. Neeru noyola however does n ot want to get a C OVID booster or th e RSV. ? Medical / Socia l History Reviewed ? Past Medical His tory ?Yes . ? [place] of Care / Care T eam list updated ? Yes . ? Surgical/Hosp italization Histo ry ?Yes . ? Current M edications (inclu ding OTC and suppl ements) ?Yes . ? Fami ly History ?Yes . ? Tobacco Control f orm ?Yes . ? AUDIT-C (Alcohol use) form ?Yes . ? Illicit dr ug use in Social History ?Yes . ? Curr ent diagnosis of depression? ?No ? Shine ropriate PHQ2/PHQ9 completed ?Yes . ? Data entered by ?M edical Animal Geneticist and reviewed by arnol marlow ? Fall Risk ? Fal l History? Have y ou had any falls w ith injury in the past year? ?No . ? H ave you had two or more falls in th e past year? ?No . ? Fall Risk Assessme nt: ?No falls in the past year . ? HRA filled out by the patien t, reviewed by Pro hawkins and scanned. ? AWV ? Balance? Romb erg ?Yes . ? Tandem w alk ?Yes . ? Walk and Turn ?Yes . ? Rise from sit to stand ?Ye s . ?Vision ? C orrective lens - ?wears reading gla sses ? Vision screen ? Up-to-date, has a n appointment fina case scheduled with the [facility] eye c are ?Hearin g? Whisper test ?pas s . ?Writte n Plan?Completed. Yes [facility] Medical History (Updated 04/16/24 @ 10:34 by Vanda Landeros MD) Positive colorectal cancer screening using Cologuard test Type 2 diabetes mellitus without complication, without long-term current use of insulin Impaired fasting glucose Obesity (BMI 30-39.9) Personal history of nicotine dependence Osteopenia Back pain Essential hypertension Acquired hypothyroidism Dyslipidemia Primary osteoarthritis of left hip Surgical History History of total left hip arthroplasty (~09/2020) Hx of laparoscopy History of wisdom tooth extraction History of tonsillectomy Family History Father Multiple myeloma Lung cancer Mother Afib S/P CABG x 3 HTN (hypertension) CVD (cardiovascular disease) Diabetes mellitus Maternal Grandmother Diabetes mellitus Maternal Grandfather No problems noted. Paternal Grandmother Breast cancer Paternal Grandfather Stomach cancer Social History Household Members: Spouse Housing: House Are you a primary medicare insurance specialist to a significant other at home: No Do you presently have visiting nurse or other home services: No Comment: sleeping Patient Tobacco Use Status: Former Tobacco user Cigarettes Per Day: 30 Years Smoked: 35 e-Cigarette/Vaping Use: Never Used service: No Current occupational status: retired Current occupation: Right Handed Cognitive needs: No Hearing needs: No Vision needs: No Questionnaire Medicare Wellness Checkup What [age] 65-71 What gender do you identify with?: female During the past 4 weeks, how much have you been bothered by emotional problems such as feeling anxious, depressed, irritable, sad or downhearted, and blue?: not at all During the past 4 weeks, has your physical & emotional health limited your social activities with family, friends, neighbors, or groups?: not at all During the past 4 weeks, how much bodily pain have you generally had?: no pain During the past 4 weeks, was someone available to help you if you needed & wanted help?: yes, as much as I wanted During the past 4 weeks, what was the hardest physical activity you could do for at least 2 minutes?: heavy Can you get to places out of walking distance without help? (For eg., can you travel alone on buses, taxis or drive your car?): Yes Can you go shopping for groceries or clothes without someone's help?: Yes Can you prepare your own meals?: Yes Can you do your housework without help?: Yes Because of any health problems, do you need the help of another person with your personal care needs such as eating, bathing, dressing or getting around the house?: No Can you handle your own money without help?: Yes During the past 4 weeks, how would you rate your health in general?: very good During the past 4 weeks how have things been going for you?: pretty well Are you having difficulties driving your car?: no Do you always fasten your seat belt when you are in a car?: yes, usually During past 4 weeks, have you been bothered by the following: never: Falling or dizzy when standing up, Sexual problems?, Trouble eating well?, Teeth or denture problems?, Problems using the telephone? and Tiredness or fatigue? Have you fallen 2 or more times in the past year?: No Are you afraid of falling?: No Are you a smoker?: no During the past 4 weeks, how many drinks of wine, beer, or other alcoholic beverages did you have?: no alcohol at all Have you been given information to help with the following?: no: Hazards in your house that might hurt you? and no: Keeping track of your medications? How often do you have trouble taking medicines the way you have been told to take them?: I always take medicine as prescribed How confident are you that you can control & manage most of your health problems?: very confident What is your race?: White Mini Mental State Exam (MMSE) Orientation What is the (year) (season) (date) (day) (month)?: year (2023), season (fall), date (04/16/24), day (Monday) and month (March) Where are we (state) (county) (town or city) (hospital) (floor)?: state ([place]), county ([place]), town or city ([place]) and hospital/clinic ([facility]) Score Score: 9 Activity of Daily Living Bathing - sponge bath, tub bath or shower: receives no assistance (gets in/out by self, if usual bathing means Dressing - getting clothes from closets & drawers, including inner/outer garments & fasteners.: gets clothes & gets completely dressed without help Toileting - going to the 'toilet room' for urine/bowel elimination & cleaning self/arranging clothes: goes to toilet room, cleans self, arranges clothes without help Transfer: moves in & out of bed and chair without help (may use support object) Continence: has occasional 'accidents' Feeding: feeds self without help Total Score: 0 Information obtained from: patient Using telephone: independent Traveling: independent Shopping: independent Preparing meals: independent Housework: independent Taking medicine: independent Managing money: independent PHQ-9 Over the last 2 weeks, how often have you been bothered by any of the following problems? 1. Little interest or pleasure in doing things: not at all 2. Feeling down, depressed, or hopeless: not at all 3. Trouble falling or staying asleep, or sleeping too much: not at all 4. Feeling tired or having little energy: not at all 5. Poor appetite or overeating: not at all 6. Feeling bad about yourself - or that you are a failure or have let yourself or your family down: not at all 7. Trouble concentrating on things, such as reading the newspaper or watching television: not at all 8. Moving or speaking so slowly that other people could have noticed. Or the opposite - being so fidgety or restless that you have been moving around a lot more than usual: not at all 9. Thoughts that you would be better off or of hurting yourself in some way: not at all Total score: 0 Depression Screening Interpretation: Negative Depression Screening Done: Yes [id number] - PHQ-9 Billing: Yes Source: Developed by Drs. Christian Manning, Kera Dailey, Narendra Villarreal and colleagues, with an educational sukh from [employer]. Physical Exam Vital Signs: Last Vital Signs Pulse 52 04/16/24 09:42 BP 120/64 04/16/24 09:42 Pulse Ox 98 04/16/24 09:42 Oxygen Delivery Method Room Air 04/16/24 09:42 BMI result Body Mass Index 30.3 Assessment & Plan Assessment & Plan (1) Encounter for subsequent annual wellness visit (AWV) in Medicare patient: Code(s): Z00.00 - Encounter for general adult medical examination without abnormal findings Plan: Medical wellness checklist reviewed, discussed with patient and updated. , copy given. Patient up-to-date with her MOLST form, healthcare proxy form given to patient to complete and will give us a copy once done (2) Osteopenia: Comment: (Bone Dexa = T-score -2.0 femur - 03/10/21) Code(s): M85.80 - Other specified disorders of bone density and structure, unspecified site Qualifiers: Laterality: right Osteopenia location: femoral neck Qualified Code(s): M85.851 - Other specified disorders of bone density and structure, right thigh Plan: Repeat bone density scan ordered, to be done together with screening mammogram (3) Type 2 diabetes mellitus without complication, without long-term current use of insulin: Code(s): E11.9 - Type 2 diabetes mellitus without complications Plan: Hemoglobin A1c at 5.6%, continue with current dose of metformin 500 mg once a day (4) Acquired hypothyroidism: Code(s): E03.9 - Hypothyroidism, unspecified Plan: Thyroid levels are within normal limits, continue with levothyroxine 100 mcg daily (5) Dyslipidemia: Code(s): E78.5 - Hyperlipidemia, unspecified Plan: Recent fasting lipids are within normal limits, continue with atorvastatin 40 mg daily (6) Essential hypertension: Code(s): I10 - Essential (primary) hypertension Plan: Blood pressure stable and controlled on lisinopril 10 mg daily (7) Cyst of pancreas: Comment: (4.2 x 4.4 cm cyst in body of pancreas - noted on 07/[address]) Code(s): K86.2 - Cyst of pancreas Plan: Currently followed by Dr. Eubanks, has another CT scan of abdomen scheduled for next year (8) Personal history of nicotine dependence: Code(s): Z87.891 - Personal history of nicotine dependence Plan: Has an appointment for a CT lung cancer screening scheduled for next month (9) Breast cancer screening: Code(s): Z12.39 - Encounter for other screening for malignant neoplasm of breast Plan: Ordered a screening mammogram, to be done together with her bone density scan Orders: Orders MM tomosynthesis screening BI Today M85.851 - Other specified disorders of bone density and structure, right thigh, Z12.31 - Encounter for screening mammogram for malignant neoplasm of breast XR DEXA axial skeleton Today M85.851 - Other specified disorders of bone density and structure, right thigh, Z12.31 - Encounter for screening mammogram for malignant neoplasm of breast Quality Reporting (2020) Depression/Bipolar (159/160/161/177) PHQ-9: Total score: 0 Coding Level of Care Code Medicare Subsequent (G0439) Diagnoses Encounter for subsequent annual wellness visit (AWV) in Medicare patient Z00.00 Osteopenia of neck of right femur M85.851 Laterality: right Osteopenia location: femoral neck Type 2 diabetes mellitus without complication, without long-term current use of insulin E11.9 Acquired hypothyroidism E03.9 Dyslipidemia E78.5 Essential hypertension I10 Cyst of pancreas K86.2 Personal history of nicotine dependence Z87.891 Breast cancer screening Z12.39 CPT Codes Advance Care Planning - Advance Care Planning discussion: On file, no changes ([id number]) Advance Care Planning - Time spent: 1-15 minutes, on File ([id number]) Advance Care Planning Advance Care Planning discussion: On file, no changes Date of discussion: 04/16/24 Who was present: Patient Forms completed: MOLST Time spent: 1-15 minutes, on File Actual minutes spent: 15
[2024-04-16 09:42] VITALS: BP 120/64; PULSE 52; O2SAT 98; BMI 30.3
== END 2024-04-16 10:31 | disposition home or self-care (01) ==
PROVIDERS: PCP Internal Medicine; Visit Provider Internal Medicine
DX: Z00.00 Encounter for general adult medical examination without abnormal findings (principal); E11.9 Type 2 diabetes mellitus without complications; M85.851 Other specified disorders of bone density and structure, right thigh; E03.9 Hypothyroidism, unspecified; E78.5 Hyperlipidemia, unspecified; I10 Essential (primary) hypertension; K86.2 Cyst of pancreas; Z87.891 Personal history of nicotine dependence; Z12.39 Encounter for other screening for malignant neoplasm of breast

== ENCOUNTER → 2024-04-16 09:15 | Outpatient (BNVA) | payer MEDICARE, SELFPAY | PROVIDERS: PCP Internal Medicine; Visit Provider Internal Medicine ==

== ENCOUNTER 2024-04-23 15:42 | Outpatient (REF) | payer MEDICARE, SELFPAY ==
--- NOTE | ~2024-04-23 | CT_ITS ---
EXAMINATION: CT LOW-DOSE SCREENING CHEST WITHOUT CONTRAST CLINICAL INFORMATION: Personal history of nicotine dependence. The patient has a 70 pack-year history of smoking, having quit 6 years ago. COMPARISON: Multiple prior CT scans of the chest, the most recent of which is dated 03/17/2023 and the most remote of which is dated 10/12/2018. TECHNIQUE: Multidetector volumetric CT imaging of the chest is performed on a Siemens SOMATOM Definition scanner without contrast using low dose technique. Additional 2D coronal and sagittal reformatted images and axial 3D maximum intensity projection (MIP) images are generated on the CT workstation. This CT examination was performed using dose optimization techniques as appropriate, variously including the following: *Automated exposure control *Adjustment of mA and/or kV according to patient size (this includes techniques or standardized protocols for targeted exams where dose is matched to indication/reason for exam; i.e. extremities or head) *Use of iterative reconstruction technique TOTAL EXAM DLP: 49 mGy-cm. CTDIvol: 1.50 mGy. FINDINGS: PULMONARY NODULES: 4 mm noncalcified right lower lobe nodule is unchanged (5:192 compare prior 4:182). There is an unchanged tiny punctate 2 mm right upper lobe nodule (5:198 compare prior 4:173). There is no new, increasing sized or suspicious nodule. LUNGS: Lungs bilaterally symmetrically expanded. Mild emphysematous images changes are present along with bronchial thickening without bronchiectasis. No effusion or pneumothorax. Central airways patent. MEDIASTINUM: No mediastinal, hilar or axillary adenopathy or free fluid collection. CORONARY ARTERY CALCIFICATION: Moderate. THYROID GLAND: Unremarkable to the extent seen. CARDIOVASCULAR STRUCTURES: Aortic and heart size normal. No pericardial effusion. CHEST WALL/AXILLA: Unremarkable. UPPER ABDOMEN: Included portions of the solid organs in the upper abdomen unremarkable on noncontrast imaging. OSSEOUS STRUCTURES: No suspicious focal findings. Degenerative changes are present throughout the spine. CT/CT lung screening IMPRESSION: No finding seen suspicious for malignancy. ASSESSMENT: 1. Lung-RADS Category 2: Benign appearance or behavior of nodules. N/A 2. Lung-RADS Category S: Negative. There are no clinically significant or potentially clinically significant findings not related to the lungs requiring urgent additional evaluation. RECOMMENDATION: Continued routine annual low-dose CT lung screening in 1 year is recommended. An order for CT CHEST LOW DOSE CANCER SCREENING ([id number]) can be placed. Electronically signed by: Sukumar Wagner MD 06/09/2024 11:15 AM JOEY
== END 2024-04-23 15:43 | disposition home or self-care (01) ==
LOC: HO.CT 15:42
PROVIDERS: PCP Internal Medicine; Visit Provider Physician Assistant Medical
DX: Z12.2 Encounter for screening for malignant neoplasm of respiratory organs (principal); Z87.891 Personal history of nicotine dependence
CPT/HCPCS: 71271

== ENCOUNTER → 2024-06-14 09:45 | Outpatient (BNV) | payer MEDICARE, SELFPAY | PROVIDERS: PCP Internal Medicine; Visit Provider Internal Medicine | DX: Z12.31 Encounter for screening mammogram for malignant neoplasm of breast (principal) | CPT/HCPCS: 77063; 77067 ==

== ENCOUNTER 2024-06-14 10:06 | Outpatient (REF) | payer MEDICARE, SELFPAY ==
--- NOTE | ~2024-06-14 | MM_ITS ---
EXAMINATION: MM SCREENING DIGITAL BREAST TOMOSYNTHESIS, BILATERAL CLINICAL INFORMATION: Screening. Asymptomatic. COMPARISON: Mammography: Comparison is made with available priors TECHNIQUE: Digital breast mammography with tomosynthesis is performed in both the craniocaudal and mediolateral oblique views along with computer-aided detection (CAD). FINDINGS: There are scattered areas of fibroglandular density (ACR BI-RADS breast composition Category b). There are no significant masses, abnormal calcifications, or other abnormalities. MM/MM tomosynthesis screening BI IMPRESSION: No mammographic evidence of malignancy. ASSESSMENT: BI-RADS BI-RADS 1 - Negative RECOMMENDATION: Routine annual mammography screening. 1 year F/U This examination should not preclude the clinical evaluation of a suspicious palpable abnormality. This patient's information was entered into a reminder system with a target due date for their next mammogram. Electronically signed by: Brianna Gaytan DO 06/25/2024 10:49 AM JOEY
--- NOTE | ~2024-06-14 | MM_ITS ---
EXAMINATION: BONE DENSITOMETRY CLINICAL INDICATION: Other specified disorders of bone density. COMPARISON: Baseline BD dated 02/28/2021. TECHNIQUE: Using a Vtrim DXA System (software version: 13.1) manufactured by [employer], dual-energy x-ray absorptiometry was performed of the lumbar spine and right hip. The images are of good technical quality. Summary results are attached. FINDINGS: RIGHT FEMUR, NECK: Current: BMD 0.718 g/cm2, Z-score -1.0, T-score -2.3, osteopenia. Baseline: BMD 0.763 g/cm2. RIGHT FEMUR, TOTAL: Current: BMD 0.759 g/cm2, Z-score -1.0, T-score -2.0, osteopenia, 5.4% decrease from baseline (<5% change is not significant). Baseline: BMD 0.802 g/cm2. AP SPINE L1-L4 (excluding L3): The data of L1-L4 has been changed to exclude the L3 vertebral body, because at this level may cause overestimation of lumbar spine density. Current: BMD 1.214 g/cm2, Z-score 1.6, T-score 0.4, normal, 8.3% increase from baseline (<5% change is not significant). Baseline: BMD 1.121 g/cm2. IDENTIFIED RISK FACTORS: Menopause. HISTORY OF FRACTURE: None listed. MEDICATIONS: Vitamin D. MM/XR DEXA axial skeleton IMPRESSION: 1. DIAGNOSIS: Osteopenia based on the lowest T-score value of -2.3 in the femoral neck applying World Health Organization criteria. 2. 10-YEAR FRACTURE RISK PREDICTION, FRAX: Major osteoporotic fracture (clinical spine, forearm, hip or shoulder) 12.3%. Hip fracture 2.4%. 3. Treatment Recommendations: NOF guidelines recommend consideration for treatment in postmenopausal women and men age 50 and older presenting with the following: -A hip or vertebral (clinical or morphometric) fracture. -T-score less than or equal to -2.5 at the femoral neck or spine after appropriate evaluation to exclude secondary causes. -Low bone mass at the hip or spine and a 10-year fracture probability by FRAX of greater than or equal to 3% for hip fracture or greater than or equal to 20% for major osteoporotic fracture based on the [place] adapted WHO algorithm. 4. Other Recommendations: All treatment decisions require clinical judgment and consideration of individual patient factors, including patient preferences, comorbidities, previous drug use, risk factors not captured in the FRAX model (e.g. frailty, falls, vitamin D deficiency, increased bone turnover, interval significant decline in bone density) and possible under or overestimation of fracture risk by FRAX. Additional medical evaluation for secondary cause of low bone mineral density may be appropriate. FUTURE SCAN RECOMMENDATION: People with diagnosed cases of osteoporosis or at high risk for fracture should have regular bone mineral density tests. For patients eligible for Medicare, routine testing is allowed once every 2 years. The testing frequency can be increased to one year for patients who have rapidly progressing disease, those who are receiving or discontinuing medical therapy to restore bone mass, or have additional risk factors. Electronically signed by: Delia Atkinson MD 06/14/2024 01:53 PM [facility] MARKS
== END 2024-06-14 10:07 | disposition home or self-care (01) ==
LOC: HO.MAMMO 10:06
PROVIDERS: PCP Internal Medicine; Visit Provider Internal Medicine
DX: Z12.31 Encounter for screening mammogram for malignant neoplasm of breast (principal); M85.851 Other specified disorders of bone density and structure, right thigh
CPT/HCPCS: 77063; 77067; 77080

== ENCOUNTER 2024-10-11 10:37 | Outpatient (REF) | payer MEDICARE, SELFPAY ==
[2024-10-11 13:52] LABS: Estimated Average Glucose 123 mg/dL; Hemoglobin A1C 148.9313 umol/L; Hemoglobin A1c % 5.9 % (<6.0); Total Hemoglobin (HGBA1C) 3652.2931 umol/L
[2024-10-11 14:20] LABS: Alanine Aminotransferase 16 U/L (0-31); Anion Gap 10 (12-20); Aspartate Amino Transferase 23 U/L (5-31); Blood Urea Nitrogen 34 mg/dL (9-16); Calcium 9.9 mg/dL (8.4-10.2); Carbon Dioxide 27 mmol/L (22-29); Chloride 108 mmol/L (96-108); Cholesterol 151 mg/dL (<200); Estimated Glomerular Filt Rate > 60; Glucose Fasting 97 mg/dL (60-99); HDL Cholesterol 59 mg/dL (>40); LDL Cholesterol Calculated 72 mg/dL (<100); Potassium 4.2 mmol/L (3.3-5.1); Sodium 141 mmol/L (135-145); Thyroid Stimulating Hormone 2.44 uIU/mL (0.32-4.0); Triglycerides 104 mg/dL (<150); Vitamin D 25-OH Total 51.8 ng/mL (>30)
[2024-10-11 14:29] LABS: Creatinine Urine 200.26 mg/dL; Microalbum/Creatinine Ratio Ur 7.9 ug/mg cr (<30)
== END 2024-10-11 10:38 | disposition home or self-care (01) ==
LOC: HO.HMGCLDS 10:37
PROVIDERS: PCP Internal Medicine; Visit Provider Internal Medicine
DX: E11.9 Type 2 diabetes mellitus without complications (principal); E03.9 Hypothyroidism, unspecified; I10 Essential (primary) hypertension; M85.851 Other specified disorders of bone density and structure, right thigh; E78.5 Hyperlipidemia, unspecified
CPT/HCPCS: 36415; 80048; 80061; 82043; 82306; 82570; 83036; 84439; 84443; 84450; 84460

== ENCOUNTER 2024-10-15 09:05 | Outpatient (AMB) | payer MEDICARE, SELFPAY ==
[2024-10-15 09:22] VITALS: BP 110/64; PULSE 72; RESP 16; TEMP 36.7; O2SAT 95; BMI 32.4
--- NOTE | 2024-10-15 09:22 | A.OFFPC_ITS ---
Vital Signs 10/15/24 09:22 Height 5 ft 3 in Weight 183 lb BMI 32.4 BP 110/64 Blood Pressure Location Rt brachial Position Sitting Respiration 16 Pulse 72 Pulse Source Pulse Oximeter Temp 98.0 F Temp Source Oral Pulse Oximetry (%) 95 Oxygen Delivery Method Room Air Intake Visit Reasons: 6 months f/up Intake Note: Pt is here today for her 6mo. f/u Allergies iodine [Iodine] Allergy (Intermediate, Verified 10/15/24 09:35) HIVES,SWELLING, sneezing, SOB penicillin G Allergy (Intermediate, Verified 10/15/24 09:35) shortness of breath Sulfa (Sulfonamide Antibiotics) [SULFA (SULFONAMIDE ANTIBIOTICS)] Allergy (Intermediate, Verified 10/15/24 09:35) itching/SOB codeine Adverse Reaction (Severe, Verified 10/15/24 09:35) severe GI pain Medication List - Last Reconciled 10/15/24 by Vanda Landeros MD acetaminophen 650 mg (2 x 325 mg) PO Q6H PRN 30 days atorvastatin 40 mg PO BEDTIME blood sugar diagnostic (FreeStyle Lite Strips) check fasting glucose once a day blood-glucose meter (FreeStyle Lite Meter kit) check fasting glucose once a day cholecalciferol (vitamin D3) 50 mcg PO DAILY ibuprofen 600 mg PO Q8H PRN lancets (FreeStyle Lancets) check fasting glucose once a day levothyroxine 100 mcg PO QAM lisinopril 10 mg PO DAILY magnesium 400 mg PO DAILY metformin 500 mg PO DAILY Tobacco use date assessed: 10/15/24 Fall risk assessment: No Falls in past year Last assessed Fall Risk: 10/15/24 Dental Screening Dental Screen Date: 10/15/24 Did you have a dental visit in the last 12 months?: Yes Did you have a dental problem in the last 6 months where you did not have access to dental care?: No Was dental information given to patient?: Patient has dentist HPI 6 months f/up HPI Details 69 year-old lady year old presents for her ? Annual Wellness Visit, subsequent visit.? She has hypothyroidism currently stable controlled on levothyroxine, hasHypertension currently on lisinopril, diabetes mellitus on metformin, and dyslipidemia currently doing well on atorvastatin. [facility] Medical History (Updated 10/15/24 @ 09:55 by Vanda Landeros MD) History of adenomatous polyp of colon History of rib fracture Positive colorectal cancer screening using Cologuard test Type 2 diabetes mellitus without complication, without long-term current use of insulin Impaired fasting glucose Obesity (BMI 30-39.9) Personal history of nicotine dependence Osteopenia Back pain Essential hypertension Acquired hypothyroidism Dyslipidemia Primary osteoarthritis of left hip Surgical History History of total left hip arthroplasty (~09/2020) Hx of laparoscopy History of wisdom tooth extraction History of tonsillectomy Family History Father Multiple myeloma Lung cancer Mother Afib S/P CABG x 3 HTN (hypertension) CVD (cardiovascular disease) Diabetes mellitus Maternal Grandmother Diabetes mellitus Maternal Grandfather No problems noted. Paternal Grandmother Breast cancer Paternal Grandfather Stomach cancer Social History Household Members: Spouse Housing: House Are you a primary lpn care manager to a significant other at home: No Do you presently have visiting nurse or other home services: No Comment: sleeping Patient Tobacco Use Status: Former Tobacco user Cigarettes Per Day: 30 Years Smoked: 35 e-Cigarette/Vaping Use: Never Used service: No Current occupational status: retired Current occupation: Right Handed Cognitive needs: No Hearing needs: No Vision needs: No Questionnaire PHQ-9 Over the last 2 weeks, how often have you been bothered by any of the following problems? 1. Little interest or pleasure in doing things: not at all 2. Feeling down, depressed, or hopeless: not at all 3. Trouble falling or staying asleep, or sleeping too much: not at all 4. Feeling tired or having little energy: not at all 5. Poor appetite or overeating: not at all 6. Feeling bad about yourself - or that you are a failure or have let yourself or your family down: not at all 7. Trouble concentrating on things, such as reading the newspaper or watching television: not at all 8. Moving or speaking so slowly that other people could have noticed. Or the opposite - being so fidgety or restless that you have been moving around a lot more than usual: not at all 9. Thoughts that you would be better off or of hurting yourself in some way: not at all Total score: 0 Depression Screening Interpretation: Negative Depression Screening Done: Yes 20921 - PHQ-9 Billing: Yes Source: Developed by Drs. Christian Manning, Kera Dailey, Narendra Villarreal and colleagues, with an educational sukh from [employer]. Thrive Questionnaire Date Thrive assessed: 10/15/24 I am a: Patient What is your living situation today?: I have a steady place to live Within the past 12 months, did the food you bought not last and you didn't have the money to get more?: Never true Within the past 12 months, did you worry whether your food would run out before you got money to buy more?: Never true Do you have trouble paying for medicines?: No Do you have trouble getting transportation to medical appointments?: No Do you have trouble paying your heating and electricity bill?: No Do you have trouble taking care of your child, family member or friend?: No Do you have trouble with day-to-day activities such as bathing, preparing meals, shopping, managing finances, etc.?: No Are you currently unemployed and looking for a job?: No Are you interested in more education?: No Please select the resources that you would like help with: None Currently or been in a relationship where the following occur: No concerns reported THRIVE Score: 0 AUDIT C Alcohol Use Questionnaire (AUDIT-C) 1. How often do you have a drink containing alcohol?: Never 2. How many drinks containing alcohol do you have on a typical day when you are drinking?: 1 or 2 3. How often do you have six or more drinks on one occasion?: Never Total Score: 0 SMOOTH-7 AMB Questionnaire SMOOTH-7 Date SMOOTH - 7 assessed: 10/15/24 Feeling nervous, anxious, or on edge: 0 = Not at all Not being able to stop or control worryin = Not at all Worrying too much about different things: 0 = Not at all Trouble relaxin = Not at all Being so restless that it is hard to sit still: 0 = Not at all Becoming easily annoyed or irritable: 0 = Not at all Feeling afraid as if something awful might happen: 0 = Not at all Total SMOOTH-7 score (0-4 normal; 5-9 mild; 10-14 moderate; 15-21 severe): 0 Source: Developed by Drs. Christian Manning, Kera Dailey, Narendra Villarreal and colleagues, with an educational sukh from [employer]. SMOOTH-7 Assessment Billing SMOOTH-7 Assessment Tool: SMOOTH-7 Assessment 28474 Review of Systems Const Denies body aches, Denies fatigue, Denies fever(s), Denies headache(s), Denies weakness and Reports weight loss (Through diet and exercise) Eyes Details: Up-to-date with her eye exam go to the [facility] eye care Denies change in vision ENT Denies dizziness, Denies headache(s) and Denies nasal congestion Card Denies chest pain, Denies lightheadedness, Denies palpitations and Denies dyspnea Resp Denies chest congestion, Denies cough, Denies dyspnea and Denies wheezing GI Denies abdominal pain, Denies change in bowel habits and Denies heartburn Denies urinary frequency, Denies dysuria and Denies urinary urgency Musc Reports arthralgias Skin/Breast Denies lesions and Denies rash Neuro Denies dizziness, Denies headache(s) and Denies weakness Psych Reports no additional complaints Endo Denies fatigue, Denies polydipsia, Denies polyuria and Denies palpitations Carlos/Lymph Reports no additional complaints Aller/Immun Denies seasonal rhinorrhea and Denies wheezing Physical exam (Primary Care) Vital Signs: Last Vital Signs Temp 98.0 F 10/15/24 09:22 Pulse 72 10/15/24 09:22 Resp 16 10/15/24 09:22 BP 110/64 10/15/24 09:22 Pulse Ox 95 10/15/24 09:22 Oxygen Delivery Method Room Air 10/15/24 09:22 BMI result Body Mass Index 32.4 Tobacco/Smoking Status: Tobacco use Status Tobacco use date assessed 10/15/24 10/15/24 09:27 Patient Tobacco Use Status Former Tobacco user 10/15/24 09:27 e-Cigarette/Vaping Use Never Used 10/15/24 09:27 PHQ-9: PHQ-9 Score PHQ-9: Total score 0 10/15/24 09:36 Depression Screening Interpretation: Negative Thrive Assessment: Date of Thrive Assessment Date Thrive assessed 10/15/24 10/15/24 09:27 Currently or been in a relationship where the following occur: No concerns reported Const General: no acute distress Orientation/consciousness: patient oriented x3 [facility] General nose exam: Normal external nose present Face and sinus: Yes face symmetric Mouth: Normal oral and palatal mucosa present and moist mucous membranes Eyes General: appearance normal, both eyes and all related structures Neck Neck: Yes full ROM, Yes no lymphadenopathy and Yes supple Resp Effort & Inspection: normal respiratory effort and able to speak in complete sentences Auscultation: clear to auscultation bilaterally Cardio Rate: regular rate Rhythm: regular rhythm Heart sounds: S1 normal heart sound present and S2 normal heart sound present GI Palpation (GI): Soft to palpation, nontender, no guarding and no masses Auscultation: normal bowel sounds Back/Spine/Pelvis Cervical Spine: cervical ROM normal Thoracic/Lumbar Spine: thoracic and lumbar spine normal to inspection Neuro General: patient oriented x3, tone normal, moves all extremities, Normal light touch and pain sensation and no focal motor deficits Extrem General: Yes full ROM, Yes no joint enlargement, Yes no pedal edema and Yes no calf tenderness Psych Appearance: grossly normal and well kempt Mental Status: mental status grossly normal Speech and movement: Normal speech and movement present Affect: normal affect Attitude: cooperative Results Reviewed Results Reviewed: Name: Debi Wyatt Age/Sex: 69/F : 1955 Unit#: [id number] Attend Dr: Vanda Landeros MD Re10/11/24 Status: DEP [facility] Disch: SPEC : [id number] PRANAY: 10/11/24 STATUS: COMP REQ : [id number] RECD: 10/11/24-[address]: Vanda Landeros MD COMP: 10/11/24 ENTERED: 10/11/24-[address]: ORDERED: Met Prof Fast, AST, ALT, Lipid Panel, Vitamin D 25-OH, Free T4, TSH Test Result Flag Reference Sodium 141 135-145 mmol/L Potassium 4.2 3.3-5.1 mmol/L CL 108 96-108 mmol/L CO2 27 22-29 mmol/L Gap 10 L 12-20 BUN 34 H 9-16 mg/dL Creat 0.82 0.5-1.4 mg/dL eGFR > 60 Chronic Kidney Disease: Estimated GFR < 60 mL/min/1.73m2 Severe Kidney Disease: Estimated GFR < 15 mL/min/1.73m2 FBS 97 60-99 mg/dL CA 9.9 8.4-10.2 mg/dL AST (GOT) 23 5-31 U/L ALT (GPT) 16 0-31 U/L Triglyceride 104 <150 mg/dL Desirable Triglyceride: less than 150 mg/dL Borderline High Triglyceride 150-199 mg/dL High Triglyceride: 200-499 mg/dL Very High Triglyceride: greater than or equal to 5OO mg/dL Cholesterol 151 <200 mg/dL Desirable Cholesterol: less than 200 mg/dL Borderline High Cholesterol: 200-239 mg/dL High Cholesterol: greater than 239 mg/dL LDL Calculated 72 <100 mg/dL Desirable LDL: less than 100 mg/dL Near Optimal/Above Optimal LDL: 110-129 mg/dL Borderline High LDL: 130-159 mg/dL High LDL: 160-189 mg/dL Very High LDL: greater than or equal to 190 mg/dL HDL 59 >40 mg/dL Desirable HDL: greater than 40 mg/dL Note: This HDL assay may give artificially low results in patients with liver disease. Vitamin D 25-OH 51.8 >30 ng/mL Health Based Reference Values* < 20 ng/mL Deficient 20-30 ng/mL Insufficient > 30 ng/mL Sufficient *Kalin WILLOUGHBY. N Engl J Med. 2007;357:266-280 There is no well-established upper level of normal vitamin D levels. Some laboratories use 50 ng/mL as an upper limit of normal. However, toxicity is patient-dependent and may occur at any level. Careful correlation with the patient's presentation is necessary and, if there is concern for vitamin D toxicity, treatment should be considered irrespective of the serum level. Care must be taken in interpreting Vitamin D results from different laboratories and methodologies. Published data demonstrated that results from patients undergoing hemodialysis may show a negative bias when tested with various automated 25-OH vitamin D assays when compared to LC-MS/MS. When testing samples from patients whose predominant form of Vitamin D is Vitamin D2, such as patients receiving Vitamin D2 supplementation, results that are subtherapeutic should be confirmed with another method such as LC-MS/MS. Free T4 1.40 0.71-1.85 ng/dL TSH 3rd Gen. 2.44 0.32-4.0 uIU/mL Laboratory Tests 10/11/24 10:46 Estimat Average Glucose 123 Hemoglobin A1c % 5.9 Laboratory Tests 10/11/24 10:46 Urine Creatinine 200.26 Urine Microalbumin 16.0 Microalb/Creat Ratio 7.9 Coding Level of Care Code Est Pt Level 4 (36497) Complex EM visit Add On G2211 Diagnoses Type 2 diabetes mellitus without complication, without long-term current use of insulin E11.9 Acquired hypothyroidism E03.9 Dyslipidemia E78.5 Essential hypertension I10 Additional Codes SMOOTH-7 Assessment Billing - SMOOTH-7 Assessment Tool: SMOOTH-7 Assessment 72800 ([id number]) PHQ-9 - 82924 - PHQ-9 Billing: Yes ([id number]) Assessment & Plan Assessment & Plan (1) Type 2 diabetes mellitus without complication, without long-term current use of insulin: Code(s): E11.9 - Type 2 diabetes mellitus without complications Category: Medical Plan: Diabetes mellitus is well controlled, with last hemoglobin A1c at 5.9%, no evidence of microalbuminuria. Will continue metformin 500 mg daily (2) Acquired hypothyroidism: Code(s): E03.9 - Hypothyroidism, unspecified Category: Medical Plan: Last thyroid levels are within normal limits, continue current dose of levothyroxine 100 mcg daily (3) Dyslipidemia: Code(s): E78.5 - Hyperlipidemia, unspecified Category: Medical Plan: Latest fasting labs showed normal lipids, continued on atorvastatin 40 mg at bedtime (4) Essential hypertension: Code(s): I10 - Essential (primary) hypertension Category: Medical Plan: Blood pressure at goal of less than 130/80. Continue with current medication. Reinforced importance of following a low sodium diet, getting regular exercise, and lowering stress levels. Orders: Orders Alanine Aminotransferase 03/24/25 E11.9 - Type 2 diabetes mellitus without complications, E78.5 - Hyperlipidemia, unspecified, I10 - Essential (primary) hypertension, Z86.0101 - Personal history of adenomatous and serrated colon polyps Basic Metabolic Panel Fasting 03/24/25 E11.9 - Type 2 diabetes mellitus without complications, E78.5 - Hyperlipidemia, unspecified, I10 - Essential (primary) hypertension, Z86.0101 - Personal history of adenomatous and serrated colon polyps Thyroid Stimulating Hormone 03/24/25 E03.9 - Hypothyroidism, unspecified Hemoglobin A1c 03/24/25 E11.9 - Type 2 diabetes mellitus without complications, E78.5 - Hyperlipidemia, unspecified, I10 - Essential (primary) hypertension, Z86.0101 - Personal history of adenomatous and serrated colon polyps Aspartate Amino Transferase 03/24/25 E11.9 - Type 2 diabetes mellitus without complications, E78.5 - Hyperlipidemia, unspecified, I10 - Essential (primary) hypertension, Z86.0101 - Personal history of adenomatous and serrated colon polyps Vitamin D 25-OH Total 03/24/25 E11.9 - Type 2 diabetes mellitus without complications, E78.5 - Hyperlipidemia, unspecified, I10 - Essential (primary) hypertension, Z86.0101 - Personal history of adenomatous and serrated colon polyps Lipid Panel 03/24/25 E11.9 - Type 2 diabetes mellitus without complications, E78.5 - Hyperlipidemia, unspecified, I10 - Essential (primary) hypertension, Z86.0101 - Personal history of adenomatous and serrated colon polyps Free T4 (Free Thyroxine) 03/24/25 E03.9 - Hypothyroidism, unspecified
== END 2024-10-15 09:56 | disposition home or self-care (01) ==
LOC: HO.HMCC 09:06
PROVIDERS: PCP Internal Medicine; Visit Provider Internal Medicine
DX: E11.9 Type 2 diabetes mellitus without complications (principal); E03.9 Hypothyroidism, unspecified; E78.5 Hyperlipidemia, unspecified; I10 Essential (primary) hypertension

== ENCOUNTER → 2024-10-15 09:05 | Outpatient (BNVA) | payer MEDICARE, SELFPAY | PROVIDERS: PCP Internal Medicine; Visit Provider Internal Medicine | DX: E11.9 Type 2 diabetes mellitus without complications (principal); E03.9 Hypothyroidism, unspecified; E78.5 Hyperlipidemia, unspecified; I10 Essential (primary) hypertension | CPT/HCPCS: 96127; 99212 ==

== ENCOUNTER 2025-04-17 09:12 | Outpatient (REF) | payer MEDICARE, SELFPAY ==
[2025-04-17 10:45] LABS: Hemoglobin A1C 130.8960 umol/L; Total Hemoglobin (HGBA1C) 3418.6391 umol/L
[2025-04-17 11:35] LABS: Alanine Aminotransferase 16 U/L (0-31); Anion Gap 12 (12-20); Aspartate Amino Transferase 25 U/L (5-31); Blood Urea Nitrogen 33 mg/dL (9-16); Calcium 10.2 mg/dL (8.4-10.2); Carbon Dioxide 27 mmol/L (22-29); Chloride 106 mmol/L (96-108); Cholesterol 136 mg/dL (<200); Estimated Glomerular Filt Rate > 60; HDL Cholesterol 43 mg/dL (>40); Potassium 4.3 mmol/L (3.3-5.1); Sodium 141 mmol/L (135-145); Triglycerides 123 mg/dL (<150)
[2025-04-17 11:36] LABS: Free T4 (Free Thyroxine) 1.54 ng/dL (0.71-1.85); Thyroid Stimulating Hormone 0.25 uIU/mL (0.32-4.0)
== END 2025-04-17 09:13 | disposition home or self-care (01) ==
LOC: HO.HMGCLDS 09:12
PROVIDERS: PCP Internal Medicine; Visit Provider Internal Medicine
DX: E11.9 Type 2 diabetes mellitus without complications (principal); E78.5 Hyperlipidemia, unspecified; I10 Essential (primary) hypertension; E03.9 Hypothyroidism, unspecified; Z86.0101 Personal history of adenomatous and serrated colon polyps
CPT/HCPCS: 36415; 80048; 80061; 82306; 83036; 84439; 84443; 84450; 84460

== ENCOUNTER 2025-04-21 09:30 | Outpatient (AMB) | payer MEDICARE, SELFPAY ==
--- NOTE | 2025-04-21 09:35 | AM.OFFVISMDC ---
Intake Vital Signs 04/21/25 09:40 Height 5 ft 3 in Weight 168 lb BMI 29.8 BP 112/70 Blood Pressure Location Lt brachial Position Sitting Pulse 70 Pulse Source Pulse Oximeter Temp 97.8 F Temp Source Oral Pulse Oximetry (%) 97 Oxygen Delivery Method Room Air Intake Visit Reasons: AWV G0438 Allergies iodine (Iodine) Allergy (Intermediate, Verified 04/21/25 09:57) HIVES,SWELLING, sneezing, SOB penicillin G Allergy (Intermediate, Verified 04/21/25 09:57) shortness of breath Sulfa (Sulfonamide Antibiotics) (SULFA (SULFONAMIDE ANTIBIOTICS)) Allergy (Intermediate, Verified 04/21/25 09:57) itching/SOB codeine Adverse Reaction (Severe, Verified 04/21/25 09:57) severe GI pain Medication List - Last Reconciled 04/21/25 by Vanda Landeros MD acetaminophen 650 mg (2 x 325 mg) PO Q6H PRN 30 days atorvastatin 40 mg PO BEDTIME blood sugar diagnostic (FreeStyle Lite Strips) check fasting glucose once a day blood-glucose meter (FreeStyle Lite Meter kit) check fasting glucose once a day cholecalciferol (vitamin D3) 50 mcg PO DAILY ibuprofen 600 mg PO Q8H PRN lancets (FreeStyle Lancets) check fasting glucose once a day levothyroxine 100 mcg PO QAM lisinopril 10 mg PO DAILY magnesium 400 mg PO DAILY metformin 500 mg PO DAILY Do you need a note to return to daycare/school/sports/work: No HPI AWV G0438 HPI Details SWV ? 70 year old presents for her ? Annual Wellness Visit, subsequent visit.? She has hypothyroidism currently stable controlled on current dose of levothyroxine, has Hypertension currently on lisinopril, diabetes mellitus controlled on metformin, and dyslipidemia currently doing well on atorvastatin. She is up-to-date with her screening mammogram, last done 06/14/2024 with normal findings, last bone density scan was done 06/14/2024 as well which showed presence of osteopenia in right femoral neck and right femur, normal in lumbar spine, no history of fractures Had recent fasting labs done which showed normal lipids and diabetes control on 04/17/2025 with lipids within normal limits and hemoglobin A1c at 5.7%. Up-to-date with her screening colonoscopy done [place] [address] Leigh, repeat colonoscopy due again in 2028 due to removal of a precancerous polyp. She is scheduled to get her flu shot this month, not want to get any COVID booster, up-to-date with her pneumonia vaccine had a Prevnar 20, reminded to get the Prevnar 21. Up-to-date with her shingles vaccine. Reminded to get her tetanus booster. ? Medical / Social History Reviewed? Past Medical History ?Yes . ? [place] of Care / Care Team list updated ?Yes . ? Surgical/Hospitalization History ?Yes . ? Current Medications (including OTC and supplements) ?Yes . ? Family History ?Yes . ? Tobacco Control form ?Yes . ? AUDIT-C (Alcohol use) form ?Yes . ? Illicit drug use in Social History ?Yes . ? Current diagnosis of depression? ?No ? Appropriate PHQ2/PHQ9 completed ?Yes . ? Data entered by ?[employer] and reviewed by provider ? Fall Risk ? Fall History? Have you had any falls with injury in the past year? ?No . ? Have you had two or more falls in the past year? ?No . ? Fall Risk Assessment: ?No falls in the past year . ? HRA filled out by the patient, reviewed by Provider and scanned. ?SWV ? Balance? Romberg ?negative. ? Tandem walk ?Yes . ? Walk and Turn ?Yes . ? Rise from sit to stand ?Yes . ?Vision? Corrective lens ?none ? Vision screen ? Up-to-date, goes [facility], with no glaucoma, macular degeneration were cataract seen ?Hearing? Whisper test ?pass . ?Written Plan?Completed. See Patient Documents.? Healthcare proxy done today [facility] Medical History History of adenomatous polyp of colon History of rib fracture Positive colorectal cancer screening using Cologuard test Type 2 diabetes mellitus without complication, without long-term current use of insulin Impaired fasting glucose Obesity (BMI 30-39.9) Personal history of nicotine dependence Osteopenia Back pain Essential hypertension Acquired hypothyroidism Dyslipidemia Primary osteoarthritis of left hip Surgical History History of total left hip arthroplasty (~09/2020) Hx of laparoscopy History of wisdom tooth extraction History of tonsillectomy Family History Father Multiple myeloma Lung cancer Mother Afib S/P CABG x 3 HTN (hypertension) CVD (cardiovascular disease) Diabetes mellitus Maternal Grandmother Diabetes mellitus Maternal Grandfather No problems noted. Paternal Grandmother Breast cancer Paternal Grandfather Stomach cancer Social History Household Members: Spouse Housing: House Are you a primary director career to a significant other at home: No Do you presently have visiting nurse or other home services: No Comment: sleeping Patient Tobacco Use Status: Former Tobacco user Cigarettes Per Day: 30 Years Smoked: 35 e-Cigarette/Vaping Use: Never Used service: No Current occupational status: retired Current occupation: Right Handed Cognitive needs: No Hearing needs: No Vision needs: No Questionnaire Medicare Wellness Checkup What [age] What gender do you identify with?: female During the past 4 weeks, how much have you been bothered by emotional problems such as feeling anxious, depressed, irritable, sad or downhearted, and blue?: not at all During the past 4 weeks, has your physical & emotional health limited your social activities with family, friends, neighbors, or groups?: not at all During the past 4 weeks, how much bodily pain have you generally had?: very mild pain During the past 4 weeks, was someone available to help you if you needed & wanted help?: yes, as much as I wanted During the past 4 weeks, what was the hardest physical activity you could do for at least 2 minutes?: heavy Can you get to places out of walking distance without help? (For eg., can you travel alone on buses, taxis or drive your car?): Yes Can you go shopping for groceries or clothes without someone's help?: Yes Can you prepare your own meals?: Yes Can you do your housework without help?: Yes Because of any health problems, do you need the help of another person with your personal care needs such as eating, bathing, dressing or getting around the house?: No Can you handle your own money without help?: Yes During the past 4 weeks, how would you rate your health in general?: very good During the past 4 weeks how have things been going for you?: very well; could hardly better Are you having difficulties driving your car?: no Do you always fasten your seat belt when you are in a car?: yes, usually During past 4 weeks, have you been bothered by the following: never: Falling or dizzy when standing up, Sexual problems?, Trouble eating well?, Teeth or denture problems?, Problems using the telephone? and Tiredness or fatigue? Have you fallen 2 or more times in the past year?: No Are you afraid of falling?: No Are you a smoker?: no During the past 4 weeks, how many drinks of wine, beer, or other alcoholic beverages did you have?: no alcohol at all Do you exercise for about 20 minutes 3 or more times a week?: no, I usually do not exercise this much Have you been given information to help with the following?: no: Hazards in your house that might hurt you? and no: Keeping track of your medications? How often do you have trouble taking medicines the way you have been told to take them?: I always take medicine as prescribed How confident are you that you can control & manage most of your health problems?: very confident What is your race?: White Mini Mental State Exam (MMSE) Orientation What is the (year) (season) (date) (day) (month)?: year (2024), season (Fall), date (04/20/2025), day (Monday) and month (March) Where are we (state) (county) (town or city) (hospital) (floor)?: state ([place]), [facility] ([place]), town or city ([place]) and hospital/clinic ([facility]) Score Score: 9 Activity of Daily Living Bathing - sponge bath, tub bath or shower: receives no assistance (gets in/out by self, if usual bathing means Dressing - getting clothes from closets & drawers, including inner/outer garments & fasteners.: gets clothes & gets completely dressed without help Toileting - going to the 'toilet room' for urine/bowel elimination & cleaning self/arranging clothes: goes to toilet room, cleans self, arranges clothes without help Transfer: moves in & out of bed and chair without help (may use support object) Continence: has occasional 'accidents' Feeding: feeds self without help Total Score: 0 Information obtained from: patient Using telephone: independent Traveling: independent Shopping: independent Preparing meals: independent Housework: independent Taking medicine: independent Managing money: independent PHQ-9 Over the last 2 weeks, how often have you been bothered by any of the following problems? 1. Little interest or pleasure in doing things: not at all 2. Feeling down, depressed, or hopeless: not at all 3. Trouble falling or staying asleep, or sleeping too much: not at all 4. Feeling tired or having little energy: not at all 5. Poor appetite or overeating: not at all 6. Feeling bad about yourself - or that you are a failure or have let yourself or your family down: not at all 7. Trouble concentrating on things, such as reading the newspaper or watching television: not at all 8. Moving or speaking so slowly that other people could have noticed. Or the opposite - being so fidgety or restless that you have been moving around a lot more than usual: not at all 9. Thoughts that you would be better off or of hurting yourself in some way: not at all Total score: 0 Depression Screening Interpretation: Negative Depression Screening Done: Yes 85559 - PHQ-9 Billing: Yes Source: Developed by Drs. Christian Manning, Kera Dailey, Narendra Villarreal and colleagues, with an educational sukh from [employer]. SMOOTH-7 AMB Questionnaire SOMOTH-7 Date SMOOTH - 7 assessed: 04/21/25 Feeling nervous, anxious, or on edge: 0 = Not at all Not being able to stop or control worryin = Not at all Worrying too much about different things: 0 = Not at all Trouble relaxin = Not at all Being so restless that it is hard to sit still: 0 = Not at all Becoming easily annoyed or irritable: 0 = Not at all Feeling afraid as if something awful might happen: 0 = Not at all Total SMOOTH-7 score (0-4 normal; 5-9 mild; 10-14 moderate; 15-21 severe): 0 Source: Developed by Drs. Christian Manning, Kera Dailey, Narendra Villarreal and colleagues, with an educational sukh from [employer]. SMOOTH-7 Assessment Billing SMOOTH-7 Assessment Tool: SMOOTH-7 Assessment 76234 Physical Exam Vital Signs: Last Vital Signs Temp 97.8 F 04/21/25 09:40 Pulse 70 04/21/25 09:40 BP 112/70 04/21/25 09:40 Pulse Ox 97 04/21/25 09:40 Oxygen Delivery Method Room Air 04/21/25 09:40 BMI result Body Mass Index 29.8 Results Reviewed Results Reviewed: Laboratory Tests 10/11/24 04/17/25 10:46 09:30 Estimat Average Glucose 117 Hemoglobin A1c % 5.7 Urine Creatinine 200.26 Urine Microalbumin 16.0 Microalb/Creat Ratio 7.9 Name: Debi Wyatt Age/Sex: 70/F : 1955 Unit#: [id number] Attend Dr: Vanda Landeros MD Re04/17/25 Status: DEP REF Location: [facility] Disch: SPEC : [id number] PRANAY: 04/17/25 STATUS: COMP REQ : [id number] RECD: 04/17/25-[address]: Vanda Landeros MD COMP: 04/17/25 ENTERED: 04/17/[address] [facility] [address]: ORDERED: Met Prof Fast, AST, ALT, Lipid Panel, Vitamin D 25-OH, Free T4, TSH Test Result Flag Reference Sodium 141 135-145 mmol/L Potassium 4.3 3.3-5.1 mmol/L CL 106 96-108 mmol/L CO2 27 22-29 mmol/L Gap 12 12-20 BUN 33 H 9-16 mg/dL Creat 0.88 0.5-1.4 mg/dL eGFR > 60 Chronic Kidney Disease: Estimated GFR < 60 mL/min/1.73m2 Severe Kidney Disease: Estimated GFR < 15 mL/min/1.73m2 FBS 102 H 60-99 mg/dL A fasting glucose from 100-125 mg/dl is considered impaired (pre-diabetes). CA 10.2 8.4-10.2 mg/dL AST (GOT) 25 5-31 U/L ALT (GPT) 16 0-31 U/L Triglyceride 123 <150 mg/dL Desirable Triglyceride: less than 150 mg/dL Borderline High Triglyceride 150-199 mg/dL High Triglyceride: 200-499 mg/dL Very High Triglyceride: greater than or equal to 5OO mg/dL Cholesterol 136 <200 mg/dL Desirable Cholesterol: less than 200 mg/dL Borderline High Cholesterol: 200-239 mg/dL High Cholesterol: greater than 239 mg/dL LDL Calculated 69 <100 mg/dL Desirable LDL: less than 100 mg/dL Near Optimal/Above Optimal LDL: 110-129 mg/dL Borderline High LDL: 130-159 mg/dL High LDL: 160-189 mg/dL Very High LDL: greater than or equal to 190 mg/dL HDL 43 >40 mg/dL Desirable HDL: greater than 40 mg/dL Note: This HDL assay may give artificially low results in patients with liver disease. Vitamin D 25-OH 63.8 >30 ng/mL Health Based Reference Values* < 20 ng/mL Deficient 20-30 ng/mL Insufficient > 30 ng/mL Sufficient *Kalin WILLOUGHBY. N Engl J Med. 2007;357:266-280 There is no well-established upper level of normal vitamin D levels. Some laboratories use 50 ng/mL as an upper limit of normal. However, toxicity is patient-dependent and may occur at any level. Careful correlation with the patient's presentation is necessary and, if there is concern for vitamin D toxicity, treatment should be considered irrespective of the serum level. Care must be taken in interpreting Vitamin D results from different laboratories and methodologies. Published data demonstrated that results from patients undergoing hemodialysis may show a negative bias when tested with various automated 25-OH vitamin D assays when compared to LC-MS/MS. When testing samples from patients whose predominant form of Vitamin D is Vitamin D2, such as patients receiving Vitamin D2 supplementation, results that are subtherapeutic should be confirmed with another method such as LC-MS/MS. Free T4 1.54 0.71-1.85 ng/dL TSH 3rd Gen. 0.25 L 0.32-4.0 uIU/mL TSH 3rd Generation ([facility]) Assessment & Plan Assessment & Plan (1) Encounter for subsequent annual wellness visit in Medicare patient: Code(s): Z00.00 - Encounter for general adult medical examination without abnormal findings Plan: Medical wellness checklist reviewed, discussed with patient and updated. Healthcare proxy completed today. Up-to-date with vaccines has an appointment to get her flu vaccine, does not want to get COVID booster (2) Acquired hypothyroidism: Code(s): E03.9 - Hypothyroidism, unspecified Plan: Currently stable and controlled on present dose of levothyroxine 100 mcg daily (3) Type 2 diabetes mellitus without complication, without long-term current use of insulin: Code(s): E11.9 - Type 2 diabetes mellitus without complications Plan: Controlled on metformin 500 mg once a day, has been compliant with healthy eating habits, gets regular exercise. Latest hemoglobin A1c is at 5.7%, up-to-date with her diabetes retinopathy screening, goes to [facility] in [place]. Will be getting her flu vaccine later this month, already has an appoint (4) Osteopenia: Comment: (Bone Dexa Femoral T-score = -2.0 on 03/10/21; -2.3 on 06/14/24) Code(s): M85.80 - Other specified disorders of bone density and structure, unspecified site Qualifiers: Laterality: right Osteopenia location: femoral neck Qualified Code(s): M85.851 - Other specified disorders of bone density and structure, right thigh Plan: Reinforced importance of doing regular weight-bearing exercise, continue taking adequate calcium from dietary sources and continue with taking vitamin-D 3 supplements 50 mcg daily. (5) Essential hypertension: Code(s): I10 - Essential (primary) hypertension Plan: Blood pressure at goal of less than 130/80. Continue with lisinopril 10 mg daily. Reinforced importance of following a low sodium diet, getting regular exercise, and lowering stress levels. (6) Dyslipidemia: Code(s): E78.5 - Hyperlipidemia, unspecified Plan: Fasting lipids are within normal limits, continued on atorvastatin 40 mg at bedtime (7) Cyst of pancreas: Comment: (4.2 x 4.4 cm cyst in body of pancreas - noted on 07/[address]) Code(s): K86.2 - Cyst of pancreas Plan: Followed by surgical oncology, repeat MRI due again in 2026, was just seen earlier this year (8) History of adenomatous polyp of colon: Comment: Removed on colonoscopy in January [address] Leigh, repeat in 5 years Code(s): Z86.0101 - Personal history of adenomatous and serrated colon polyps Plan: Repeat colonoscopy done per Dr. Montero in 2028 (9) Personal history of nicotine dependence: Code(s): Z87.891 - Personal history of nicotine dependence Plan: Gets yearly lung cancer screenings with low-dose CT scan up-to-date Quality Reporting (2019) Depression/Bipolar (159/160/161/177) PHQ-9: Total score: 0 Coding Level of Care Code Medicare Subsequent (G0439) Diagnoses Encounter for subsequent annual wellness visit in Medicare patient Z00.00 Acquired hypothyroidism E03.9 Type 2 diabetes mellitus without complication, without long-term current use of insulin E11.9 Osteopenia of neck of right femur M85.851 Laterality: right Osteopenia location: femoral neck Essential hypertension I10 Dyslipidemia E78.5 Cyst of pancreas K86.2 History of adenomatous polyp of colon Z86.0101 Personal history of nicotine dependence Z87.891 CPT Codes Advance Care Planning - Time spent: 16-45 minutes ([id number]) Additional Codes SMOOTH-7 Assessment Billing - SMOOTH-7 Assessment Tool: SMOOTH-7 Assessment 81086 ([id number]) PHQ-9 - 12694 - PHQ-9 Billing: Yes ([id number]) Advance Care Planning Advance Care Planning discussion: Completed/Scanned Date of discussion: 04/21/25 Who was present: Patient Forms completed: Health Care Proxy Time spent: 16-45 minutes Actual minutes spent: 2
[2025-04-21 09:40] VITALS: BP 112/70; PULSE 70; TEMP 36.6; O2SAT 97; BMI 29.8
== END 2025-04-21 10:42 | disposition home or self-care (01) ==
LOC: HO.HMCC 09:30
PROVIDERS: PCP Internal Medicine; Visit Provider Internal Medicine
DX: Z00.00 Encounter for general adult medical examination without abnormal findings (principal); E03.9 Hypothyroidism, unspecified; E11.69 Type 2 diabetes mellitus with other specified complication; M85.851 Other specified disorders of bone density and structure, right thigh; I10 Essential (primary) hypertension; E78.5 Hyperlipidemia, unspecified; K86.2 Cyst of pancreas; Z86.0101 Personal history of adenomatous and serrated colon polyps; Z87.891 Personal history of nicotine dependence

== ENCOUNTER → 2025-04-21 09:30 | Outpatient (BNVA) | payer MEDICARE, SELFPAY | PROVIDERS: PCP Internal Medicine; Visit Provider Internal Medicine | DX: Z00.00 Encounter for general adult medical examination without abnormal findings (principal); I10 Essential (primary) hypertension; E11.9 Type 2 diabetes mellitus without complications; E78.5 Hyperlipidemia, unspecified; E03.9 Hypothyroidism, unspecified; M85.851 Other specified disorders of bone density and structure, right thigh; K86.2 Cyst of pancreas; Z86.0101 Personal history of adenomatous and serrated colon polyps; Z87.891 Personal history of nicotine dependence; Z79.84 Long term (current) use of oral hypoglycemic drugs; Z79.899 Other long term (current) drug therapy | CPT/HCPCS: 96127 ==

== ENCOUNTER 2025-04-30 16:05 | Outpatient (REF) | payer MEDICARE, SELFPAY ==
--- NOTE | ~2025-04-30 | CT_ITS ---
EXAMINATION: CT LUNG SCREENING HISTORY: Z87.891 - Personal history of nicotine dependence TECHNIQUE: Low dose axial images were obtained from the sternal notch to upper abdomen without IV contrast per standard departmental protocol. Sagittal and coronal reformatted images were also obtained and reviewed. One or more of the following techniques was used for dose reduction: Automated exposure control, adjustment of the mA and/or kV according to patient size, use of iterative reconstruction technique. DLP: 51 mGy-cm COMPARISON: Comparison is made with the prior examination dated 04/29/2024. FINDINGS: Lung nodules: There is a 2 mm nodule in the right upper lobe (series 4, image 35), and a 3 mm nodule in the right lower lobe (series 4, image 55). No suspicious pulmonary nodules are identified. Emphysema: mild Coronary Calcification: moderate Aortic Arch Calcification: mild Potentially Significant Incidentals : none Additional Chest Findings: There is no pleural or pericardial effusion. No mediastinal or axillary lymphadenopathy is identified. Visualized upper abdomen: The visualized portions of the liver, spleen, and adrenals have an unremarkable unenhanced appearance. CT/CT lung screening IMPRESSION: No suspicious pulmonary nodules are identified. LUNG-RADS ASSESSMENT: Lung-RADS 2: Benign MANAGEMENT: Continue annual screening with LDCT in 12 months Category S: N/A Electronically signed by: Christian Yeager MD 05/01/2025 07:14 AM EDT
== END 2025-04-30 16:06 | disposition home or self-care (01) ==
LOC: HO.CT 16:05
PROVIDERS: PCP Internal Medicine; Visit Provider Physician Assistant Medical
DX: Z12.2 Encounter for screening for malignant neoplasm of respiratory organs (principal); Z87.891 Personal history of nicotine dependence
CPT/HCPCS: 71271

== ENCOUNTER → 2025-04-30 16:07 | Outpatient (BNV) | payer MEDICARE, SELFPAY | PROVIDERS: PCP Internal Medicine; Visit Provider Radiology Diagnostic Radiology | DX: Z12.2 Encounter for screening for malignant neoplasm of respiratory organs (principal); Z87.891 Personal history of nicotine dependence | CPT/HCPCS: 71271 ==

== ENCOUNTER 2025-06-27 10:24 | Outpatient (REF) | payer MEDICARE, SELFPAY ==
--- NOTE | ~2025-06-27 | MM_ITS ---
EXAMINATION: MM SCREENING DIGITAL BREAST TOMOSYNTHESIS, BILATERAL CLINICAL INFORMATION: Screening. Asymptomatic. COMPARISON: Mammography: Comparison is made with available priors TECHNIQUE: Digital breast mammography with tomosynthesis is performed in both the craniocaudal and mediolateral oblique views along with computer-aided detection (CAD). FINDINGS: There are scattered areas of fibroglandular density. There are no significant masses, abnormal calcifications, or other abnormalities. MM/MM tomosynthesis screening BI IMPRESSION: No mammographic evidence of malignancy. ASSESSMENT: BI-RADS Category 1: Negative RECOMMENDATION: Routine annual mammography screening. 1 year F/U This examination should not preclude the clinical evaluation of a suspicious palpable abnormality. This patient's information was entered into a reminder system with a target due date for their next mammogram. Electronically signed by: Brianna Gaytan DO 07/01/2025 09:31 AM JOEY
== END 2025-06-27 10:25 | disposition home or self-care (01) ==
LOC: HO.MAMMO 10:24
PROVIDERS: PCP Internal Medicine; Visit Provider Internal Medicine
DX: Z12.31 Encounter for screening mammogram for malignant neoplasm of breast (principal)
CPT/HCPCS: 77063; 77067

== ENCOUNTER → 2025-06-27 10:30 | Outpatient (BNV) | payer MEDICARE, SELFPAY | PROVIDERS: PCP Internal Medicine; Visit Provider Internal Medicine | DX: Z12.31 Encounter for screening mammogram for malignant neoplasm of breast (principal) | CPT/HCPCS: 77063; 77067 ==